=== PATIENT | male | born 1970 | race Caucasian/White ===

== ENCOUNTER → 2017-11-17 | Outpatient (CLI) | payer SELFPAY ==
--- NOTE | 2017-11-17 13:33 | Diagnostic Imaging Report ---
PROCEDURE: US carotid duplex, bilateral. TECHNIQUE: Multiple real-time grayscale images were obtained over the carotid arteries in various projections, bilaterally. Additional duplex Doppler and color Doppler images were also obtained. INDICATION: Carotid artery disease. There are no prior studies available for comparison. FINDINGS: There is mild hard and soft plaque formation in both carotid systems. The flow velocities are as follows: Mid CCA: Right 92 cm/s, left 84.4 cm/s. Proximal ICA: Right 148 cm/s, left 68 cm/s. Mid ICA: Right 82.5 cm/s, left 79.2 cm/s. Distal ICA: Right 97.4 cm/s, left 85 cm/s. IC/CC ratio: Right 1.6, left 0.8. Both vertebral arteries are identified and there is antegrade flow bilaterally. IMPRESSION: There is mild atherosclerotic disease involving both carotid systems. There is no evidence for a hemodynamically significant stenosis of either carotid system, however. Dictated by: Dictated on workstation # [id number]
== END ==
LOC: RAD 12:03
PROVIDERS: ATTEND Pediatrics
DX: I65.23 Occlusion and stenosis of bilateral carotid arteries (principal)
CPT/HCPCS: 93880

== ENCOUNTER → 2017-11-24 | Outpatient (CLI) | payer SELFPAY ==
[2017-11-24 16:27] VITALS: BP 149/90
--- NOTE | 2017-11-24 16:27 | Cardiology Stress Test Report ---
Stress Test Report Date of Procedure/Referring: Date of Procedure: Nov 24, 2017 PCP Zainab Saleem MD Admitting Physician Zainab Saleem MD Indications: Recurrent chest pain, hypertension, hyperlipidemia, active smoking Baseline Heart Rate: 79 Baseline Blood Pressure: Blood Pressure Systolic: 149 Blood Pressure Diastolic: 90 Baseline EKG: Baseline EKG: sinus rhythm Summary: The patient was brought to the stress level for a regular treadmill test without nuclear imaging. Informed consent was taken. Stress test was performed according to the [facility] protocol. Baseline EKG had sinus rhythm at 79 bpm and blood pressure of 1 49 x 90 mmHg. Patient exercised for 12 minutes and 30 seconds in grade 5. This is 12.9 metabolic equal and. Maximum heart rate was 173 bpm which is 101 percent of maximum predicted heart rate response. That pressure was 193/84 mmHg. There was no chest pain, arrhythmias or EKG changes noted during the stress test. Conclusion: 1. Excellent functional capacity. 2. Hypertensive response to exercise. 3. Exercise stress test is negative for ischemia. 4. Please note that exercise stress test alone has moderate sensitivity to rule out CAD. Nuclear stress test is recommended if clinically indicated. Boaz CORMIER MD Nov 24, 2017 16:27
== END ==
LOC: CARD 11:25
PROVIDERS: ATTEND Pediatrics
DX: N40.1 Benign prostatic hyperplasia with lower urinary tract symptoms (principal); R07.9 Chest pain, unspecified; E78.5 Hyperlipidemia, unspecified; I10 Essential (primary) hypertension; F17.210 Nicotine dependence, cigarettes, uncomplicated
CPT/HCPCS: 93017

== ENCOUNTER 2019-04-10 13:15 | Inpatient (IN) | payer SELFPAY, OTHER | END 2019-04-12 11:09 | disposition home or self-care (01) | LOC: 4TH 13:15 ==

== ENCOUNTER 2019-11-04 19:34 | Emergency (ER) | payer SELFPAY ==
[~2019-11-04] VITALS: Ht 175 cm; Wt 70.5 kg
[~2019-11-04 19:34] MED LIST: AMLO5TAB9 PO; ATOR20TA49 PO; FLUO40CA12 PO; GBPN600T PO; LISI-552 PO; LISI10TA2 PO; MELO15TA39 PO; OLAN15TA19 PO; RANI-515 PO; TAMS0.4C98 PO
[2019-11-04] MEDS ORDERED: LACTATED RINGERS 1,000 ML IV ONE (19:53)
[2019-11-04] MEDS ORDERED: FAMOTIDINE 20MG/2ML IV (PEPCID) IV STA (19:53)
[2019-11-04] MEDS ORDERED: ASPIRIN 81 MG CHEW (CHILDREN'S ASA) PO ONE (20:00)
[2019-11-04] MEDS ORDERED: ANTACID SUSP 30 ML UDC (MYLANTA) PO ONE (20:00)
[2019-11-04] MEDS ORDERED: ONDANSETRON 4 MG/2 ML (SDV) Z0FRAN IVP ONE (20:00)
[2019-11-04] MEDS ORDERED: LIDOCAINE 2% VISCOUS 15 ML UDC PO ONE (20:00)
[2019-11-04 20:01] LABS: BASOPHILS % (AUTO) 0 % (0-10); EOSINOPHILS # (AUTO) 0.1 10^3/uL (0.0-0.3); EOSINOPHILS % (AUTO) 1 % (0-10); HEMATOCRIT 44 % (40-54); HEMOGLOBIN 15.9 G/DL (13.3-17.7); LYMPHOCYTES # (AUTO) 2.5 X 10^3 (1.0-4.0); LYMPHOCYTES % (AUTO) 39 % (12-44); MEAN CORPUSCULAR HEMOGLOBIN 32 PG (25-34); MEAN CORPUSCULAR HGB CONC 36 G/DL (32-36); MEAN CORPUSCULAR VOLUME 88 FL (80-99); MEAN PLATELET VOLUME 9.8 FL (7.4-10.4); MONOCYTES # (AUTO) 0.6 X 10^3 (0.0-1.0); MONOCYTES % (AUTO) 10 % (0-12); NEUTROPHILS # (AUTO) 3.3 X 10^3 (1.8-7.8); NEUTROPHILS % (AUTO) 50 % (42-75); PLATELET COUNT 127 10^3/uL (130-400); RED CELL DISTRIBUTION WIDTH 14.5 % (10.0-14.5); WHITE BLOOD COUNT 6.5 10^3/uL (4.3-11.0)
--- NOTE | 2019-11-04 20:01 | ED Chest Pain ---
General Chief Complaint: Chest Pain Stated Complaint: CP,ABD PAIN, R SIDED PAIN Nursing Triage Note: Pt ambulates to RM 5 with c/o sternal CP and Rt sided rib pain x 2 days, worse with coughing. Pt has Hx of HTN and COPD, reports he did not take his BP meds this morning. Pt reports intermittent SOB as well. PT has not taken any meds [employer] but reports drinking a few beers. Nursing Sepsis Screen: No Definite Risk Source: patient, spouse Exam Limitations: no limitations History of Present Illness Date Seen by Provider: Nov 04, 2019 Time Seen by Provider: 19:37 Initial Comments Patient presents to ER by private conveyance from home with chief complaint for the past 2 days been having chest pain pointing to his epigastric region and his right upper quadrant abdomen. He says it's only radiated to his right upper quadrant abdomen/right ribs lower in the past day. He says this has occurred in the past whenever he tries to reduce or stop drinking. He had a drink of alcohol before coming in today. He has a history of alcoholism and has been on the [facility] detox program with [facility] through Dr. Saleem in the past. He has an appointment tomorrow trying get back into the program. He says he's been off alcohol for up to 6 months at a time. He denies a history of heart disease or lung disease. He does smoke a pack cigarettes per day. He denies any recreational drug use. The drinking bottle did not help his chest pain. He has no history of pancreatitis, stomach ulcers, peptic ulcer disease, gallbladder disease that he is aware of. He's had a ventral hernia repair but no other abdominal surgeries. He does take olanzapine and carbamazepine and some other medications for high blood pressure. He's been taking his medications routinely. He states that he does not take any acid reflux medicines. He has not tried any antacids today. He denies any recent trauma. He's had some subjective fevers. No history of diabetes but he does take atorvastatin. Allergies and Home Medications Allergies Uncoded Allergies: yellow jacket (Allergy, Severe, Anaphylaxis, 04/10/19) has epi pen guinea wasp (Adverse Reaction, Severe, Anaphylaxis, 04/10/19) uses epi pen Home Medications Amlodipine Besylate 5 Mg Tablet, 5 MG PO DAILY Prescribed by: CHANO SALMON on 04/12/19 1034 Atorvastatin Calcium 20 Mg Tablet, 20 MG PO HS, (Reported) Fluoxetine HCl 40 Mg Capsule, 40 MG PO DAILY, (Reported) Lisinopril 20 Mg Tablet, 20 MG PO DAILY Prescribed by: CHANO SALMON on 04/12/19 1034 Ranitidine HCl 150 Mg Tablet, 300 MG PO HS PRN for HEARTBURN, (Reported) Tamsulosin HCl 0.4 Mg Cap, 0.4 MG PO HS, (Reported) Patient Home Medication List Home Medication List Reviewed: Yes Review of Systems Review of Systems Constitutional: No chills, No diaphoresis EENTM: No Blurred Vision, No Double Vision Respiratory: Denies Cough, Denies Shortness of Air Cardiovascular: See HPI, Chest Pain; Denies Edema, Denies Irregular Heart Rate, Denies Lightheadedness Gastrointestinal: See HPI; Denies Abdomen Distended; Abdominal Pain; Denies Constipated, Denies Diarrhea Genitourinary: Denies Burning, Denies Discharge Musculoskeletal: No back pain, No joint pain Skin: No lumps, No pruritus, No rash Psychiatric/Neurological: Denies Headache, Denies Numbness All Other Systems Reviewed Negative Unless Noted: Yes Past Waptikp-Cpkxxm-Gptjyd Hx Patient Social History Alcohol Use: Regular Use Number of Drinks Today: AA Alcohol Beverage of Choice: Beer Recreational Drug Use: No Smoking Status: Never a Smoker 2nd Hand Smoke Exposure: No Recent Foreign Travel: No Contact w/Someone Who Travel: No Recent Infectious Disease Expo: No Recent Hopitalizations: No Physical Abuse: No Sexual Abuse: No Mistreated: No Fear: No Seasonal Allergies Seasonal Allergies: No Past Medical History Surgeries: Yes (hernia ) Orthopedic Respiratory: Yes COPD Cardiac: Yes Hypertension Neurological: No Genitourinary: No Gastrointestinal: No Musculoskeletal: No Endocrine: No HEENT: No Cancer: No Psychosocial: No Bipolar, Depression Integumentary: No Blood Disorders: No Family Medical History Diabetes mellitus 19 FATHER No Pertinent Family Hx Physical Exam Vital Signs Vital Signs - First Documented 11/04/19 19:40 Temp 35.9 Pulse 89 Resp 20 B/P (MAP) 137/89 (105) Pulse Ox 95 O2 Delivery Room Air Capillary Refill : Less Than 3 Seconds Height, Weight, BMI Height: 5'8.00" Weight: 150lbs. 4.0oz. 68.723884tn; 23.00 BMI Method: General Appearance: No Apparent Distress, WD/WN HEENT: PERRL/EOMI, Pharynx Normal, Moist Mucous Membranes Neck: Full Range of Motion, Normal Inspection, Non Tender, Supple Respiratory: Chest Non Tender, Lungs Clear, Normal Breath Sounds, No Accessory Muscle Use, No Respiratory Distress Cardiovascular: Regular Rate, Rhythm, No Edema, Normal Peripheral Pulses Gastrointestinal: Normal Bowel Sounds, Guarding (epigastric and right upper quadrant), Tenderness (modest epigastric tenderness to palpation and guarding and moderate to severe pain on palpation of the right upper quadrant abdomen. Negative for Solorzano sign. Negative for McBurney's point tenderness or rebound tenderness.) Extremity: Normal Capillary Refill, Normal Inspection Neurologic/Psychiatric: Alert, Oriented x3, No Motor/Sensory Deficits Skin: Normal Color, Warm/Dry Progress/Results/Core Measures Results/Orders Lab Results Laboratory Tests Test 11/04/19 19:46 Range/Units White Blood Count 6.5 4.3-11.0 10^3/uL Red Blood Count 4.99 4.35-5.85 10^6/uL Hemoglobin 15.9 13.3-17.7 G/DL Hematocrit 44 40-54 % Mean Corpuscular Volume 88 80-99 FL Mean Corpuscular Hemoglobin 32 25-34 PG Mean Corpuscular Hemoglobin Concent 36 32-36 G/DL Red Cell Distribution Width 14.5 10.0-14.5 % Platelet Count 127 L 130-400 10^3/uL Mean Platelet Volume 9.8 7.4-10.4 FL Neutrophils (%) (Auto) 50 42-75 % Lymphocytes (%) (Auto) 39 12-44 % Monocytes (%) (Auto) 10 0-12 % Eosinophils (%) (Auto) 1 0-10 % Basophils (%) (Auto) 0 0-10 % Neutrophils # (Auto) 3.3 1.8-7.8 X 10^3 Lymphocytes # (Auto) 2.5 1.0-4.0 X 10^3 Monocytes # (Auto) 0.6 0.0-1.0 X 10^3 Eosinophils # (Auto) 0.1 0.0-0.3 10^3/uL Basophils # (Auto) 0.0 0.0-0.1 10^3/uL Prothrombin Time 11.7 L 12.2-14.7 SEC INR Comment 0.8 0.8-1.4 Activated Partial Thromboplast Time 28 24-35 SEC Sodium Level 133 L 135-145 MMOL/L Potassium Level 3.7 3.6-5.0 MMOL/L Chloride Level 94 L 98-107 MMOL/L Carbon Dioxide Level 23 21-32 MMOL/L Anion Gap 16 H 5-14 MMOL/L Blood Urea Nitrogen 6 L 7-18 MG/DL Creatinine 0.78 0.60-1.30 MG/DL Estimat Glomerular Filtration Rate > 60 BUN/Creatinine Ratio 8 Glucose Level 109 H 70-105 MG/DL Calcium Level 8.8 8.5-10.1 MG/DL Corrected Calcium 8.4 L 8.5-10.1 MG/DL Magnesium Level 1.9 1.6-2.4 MG/DL Total Bilirubin 0.4 0.1-1.0 MG/DL Aspartate Amino Transf (AST/SGOT) 232 H 5-34 U/L Alanine Aminotransferase (ALT/SGPT) 337 H 0-55 U/L Alkaline Phosphatase 85 40-136 U/L Myoglobin 37.7 10.0-92.0 NG/ML Troponin I < 0.028 <0.028 NG/ML Total Protein 6.9 6.4-8.2 GM/DL Albumin 4.5 3.2-4.5 GM/DL Lipase 31 8-78 U/L My Orders Orders - MICHAEL GOMES Ed Iv/Invasive Line Start (11/04/19 19:53) Lactated Ringers (Lr 1000 Ml Iv Solution (11/04/19 19:53) Ondansetron Injection (Zofran Injectio (11/04/19 20:00) Lidocaine 2% Viscous 15 Ml (Xylocaine Vi (11/04/19 20:00) Antacid Suspension (Mylanta Suspension (11/04/19 20:00) Famotidine Injection (Pepcid Injection) (11/04/19 19:53) Ct Abdomen/Pelvis W (11/04/19 19:53) Cbc With Automated Diff (11/04/19 19:53) Magnesium (11/04/19 19:53) Chest 1 View, Ap/Pa Only (11/04/19 19:53) Ekg Tracing (11/04/19 19:53) Comprehensive Metabolic Panel (11/04/19 19:53) Myoglobin Serum (11/04/19 19:53) Protime With Inr (11/04/19 19:53) Partial Thromboplastin Time (11/04/19 19:53) O2 (11/04/19 19:53) Monitor-Rhythm Ecg Trace Only (11/04/19 19:53) Lipid Panel (11/05/19 06:00) Ed Iv/Invasive Line Start (11/04/19 19:53) Lipase (11/04/19 19:53) Aspirin Chewable Tablet (Baby Aspirin Ch (11/04/19 20:00) Troponin I (11/04/19 19:46) Thiamine Injection (Vitamin B-1 Injectio (11/04/19 20:15) Folic Acid Injection (Folic Acid Injecti (11/04/19 20:15) Ua Culture If Indicated (11/04/19 20:04) Folic Acid Tablet (Folic Acid Tablet) (11/04/19 20:15) Folic Acid Tablet (Folic Acid Tablet) (11/04/19 20:05) Iohexol Injection (Omnipaque 350 Mg/Ml 1 (11/04/19 20:45) Received Contrast (Hold Metformin- Contr (11/04/19 20:45) Sodium Chloride Flush (Catheter Flush Sy (11/04/19 20:45) Ns (Ivpb) (Sodium Chloride 0.9% Ivpb Bag (11/04/19 20:45) Medications Given in ED Current Medications Medications Dose Ordered Sig/Misa Route Start Time Stop Time Status Last Admin Dose Admin Al Hydrox/Mg Hydrox/Simethicone 30 ml ONCE ONCE PO 11/04/19 20:00 11/04/19 20:01 DC 11/04/19 20:03 30 ML Aspirin 324 mg ONCE ONCE PO 11/04/19 20:00 11/04/19 20:01 DC 11/04/19 20:03 324 MG Folic Acid 1 mg ONCE ONCE PO 11/04/19 20:15 11/04/19 20:16 DC 11/04/19 20:11 1 MG Iohexol 100 ml ONCE ONCE IV 11/04/19 20:45 11/04/19 20:46 DC 11/04/19 20:46 88 ML Lactated Ringer's 1,000 ml @ 0 mls/hr Q0M ONCE IV 11/04/19 19:53 11/04/19 19:56 DC 11/04/19 20:02 0 MLS/HR Lidocaine HCl 15 ml ONCE ONCE PO 11/04/19 20:00 11/04/19 20:01 DC 11/04/19 20:03 15 ML Ondansetron HCl 4 mg ONCE ONCE IVP 11/04/19 20:00 11/04/19 20:01 DC 11/04/19 20:02 4 MG Sodium Chloride 10 ml NEEDED PRN IV 11/04/19 20:45 11/04/19 20:46 10 ML Sodium Chloride 100 ml ONCE ONCE IV 11/04/19 20:45 11/04/19 20:46 DC 11/04/19 20:46 80 ML Thiamine HCl 100 mg ONCE ONCE IV 11/04/19 20:15 11/04/19 20:16 DC 11/04/19 20:11 100 MG Vital Signs/I&O 11/04/19 11/04/19 19:40 19:50 Temp 35.9 Pulse 89 Resp 20 B/P (MAP) 137/89 (105) Pulse Ox 95 O2 Delivery Room Air Room Air Blood Pressure Mean: 105 Progress Progress Note #1: Time: 20:02 Progress Note UA and labs looking for lipase. We'll do a chest pain workup however his pain he indicates is in his epigastric region he has a tender belly. We plan to work him up for abdominal pain. We'll give him 324 mg of aspirin to chew up and swallow. Also plan to give him a GI cocktail. Chief differential diagnoses includes PUD, gastritis, pancreatitis, biliary colic. Plan to obtain a CT of the abdomen pelvis. Liter fluids. Thiamine and folate. Pepcid IV. Progress Note #2: Time: 21:06 Progress Note The GI cocktail and Pepcid took his pain away. He's having no nausea or discomfort at this time. EKG unremarkable. Thiamine and folate in addition to his fluids. Initial ECG Impression Date: Nov 04, 2019 Initial ECG Impression Time: 20:10 Initial ECG Rate: 102 Initial ECG Rhythm: S.Tach Initial ECG Intervals: Normal Initial ECG Impression: Normal Comment Normal sinus rhythm without ST elevation or depression. Diagnostic Imaging Diagonstic Imaging: Xray Plain Films/CT/US/NM/MRI: chest (1v) Comments NAME: CHARLIE JOHNSON MED REC#: [id number] PT STATUS: REG ER : 1970 PHYSICIAN: MICHAEL GOMES MD ADMIT DATE: 11/04/19/ER Draft Date of Exam:11/04/19 CHEST 1 VIEW, AP/PA ONLY INDICATION: Chest pain, right upper quadrant pain.. TECHNIQUE: Single view chest 8:04 PM. CORRELATION STUDY: None FINDINGS: The heart size, mediastinal configuration and pulmonary vascularity are within normal limits. The lungs are clear with no consolidating infiltrate. There is no significant effusion or pneumothorax. IMPRESSION: 1. Negative for acute abnormality of the chest. Dictated on workstation # [id number] Dict: 11/04/192012 Trans: 11/04/192012 DO [id number] Interpreted by: BERTHA SUMMERS DO Electronically signed by: Reviewed: Reviewed by [place] Diagonstic Imaging: CT (with IV contrast) Plain Films/CT/US/NM/MRI: abdomen, pelvis Comments NAME: CHARLIE JOHNSON [facility] REC#: [id number] PT STATUS: REG ER : 1970 PHYSICIAN: MICHAEL GOMES MD ADMIT DATE: 11/04/19/ER Draft Date of Exam:11/04/19 CT ABDOMEN/PELVIS W PROCEDURE: CT abdomen and pelvis with contrast. TECHNIQUE: Multiple contiguous axial images were obtained through the abdomen and pelvis after administration of intravenous contrast. Auto Exposure Controls were utilized during the CT exam to meet ALARA standards for radiation dose reduction. INDICATION: Anterior mid diaphragm pain and right upper quadrant pain. CORRELATION STUDY: None. FINDINGS: Lung bases are clear. Diaphragmatic surfaces appear to be smooth and intact. There is diffuse hepatic steatosis without focal lesion. Gallbladder is mildly distended. No significant bile ductal dilatation. The pancreas, spleen and adrenal glands without acute abnormality. Abdominal aorta with mild wall desiccation, nonaneurysmal. Kidneys with normal enhancement. There is mild prominent of bilateral collecting system including the ureters. This is likely owing to a distended urinary bladder. Prostate gland is mildly prominent with a calcification centrally. No definitive ureteric obstruction. Stomach is collapsed resulting in some gastric wall thickening. Inflammation, including gastritis and/or peptic ulcer disease, would be difficult to exclude. Small bowel without obstruction. Mild severity fecal retention through the colon. Normal appendix present. No abdominal ascites or free air. Mild multilevel degenerative changes, particularly at L4-L5 and L5-S1 with disc space narrowing, endplate osteophytes and sclerosis. There is resultant significant spur like formation with resultant foraminal narrowing greatest on the right at these levels. IMPRESSION: 1. Slight distended gallbladder, otherwise unremarkable. 2. There is some gastric wall thickening which could be reflective of its collapsed state. The possibility of gastritis or peptic ulcer disease could account for this. 3. Mild dilatation of the renal collecting systems owing to somewhat distended urinary bladder. 4. Hepatic steatosis. Dictated on workstation # [id number] Dict: 11/04/192099 Trans: 11/04/192109 [facility] [id number] Interpreted by: BERTHA SUMMERS DO Electronically signed by: Reviewed: Reviewed by Me Departure Impression Primary Impression: Gastritis Qualified Codes: K29.20 - Alcoholic gastritis without bleeding Disposition: HOME, SELF-CARE Condition: Improved Departure-Patient Inst. Decision time for Depature: 21:15 Referrals: PATIENCE ABRAHAM MD, JULIE A MD (PCP/Family) Primary Care Physician Patient Instructions: Gastritis (DC) Add. Discharge Instructions: You have inflammation of your stomach probably exacerbated by the alcohol. As you stop drinking the alcohol no longer numbs the pain in the stomach and you'll feel it. It is shepherd that you reduce your alcohol intake but you need to do this with help from your doctor to treat the gastritis. We are going to put you on pantoprazole 20 mg twice a day instead of the omeprazole. Carafate 1 tablet half an hour prior to meals and at bedtime for a total of 4 times a day for the next 2 weeks. Follow-up with the general surgeon Dr. Abrahma by calling for an appointment tomorrow sometime in the next 1-2 weeks to discuss getting endoscopy of your stomach done. All discharge instructions reviewed with patient and/or family. Voiced unde rstanding. Scripts Pantoprazole Sodium (Pantoprazole Sodium) 20 Mg Tablet. 20 MG PO BID for 30 Days, #60 TAB 0 Refills Prov: MICHAEL GOMES 11/04/19 Sucralfate (Carafate) 1 Gm Tablet 1 GM PO QIDACHS for 14 Days, #56 TAB 0 Refills Prov: MICHAEL GOMES 11/04/19 Work/School Note: Family Work Note Patient Received Medical Care In the Emergency Department On: Nov 04, 2019 Patient Will Be Able to Return to Work/School On: Nov 05, 2019 Copy Copies To 1: PATIENCE ABRAHAM MD, TITUS J Nov 04, 2019 20:01
[2019-11-04] MEDS ORDERED: FOLIC ACID 1 MG TAB ONE (20:05)
[2019-11-04 20:14] LABS: ALANINE AMINOTRANSFERASE 337 U/L (0-55); ALBUMIN 4.5 GM/DL (3.2-4.5); ALKALINE PHOSPHATASE 85 U/L (40-136); BILIRUBIN,TOTAL 0.4 MG/DL (0.1-1.0); BUN/CREATININE RATIO 8; CALCIUM 8.8 MG/DL (8.5-10.1); CARBON DIOXIDE 23 MMOL/L (21-32); CHLORIDE 94 MMOL/L (98-107); CREATININE SERUM 0.78 MG/DL (0.60-1.30); GFR ESTIMATED > 60; GLUCOSE 109 MG/DL (70-105); LIPASE 31 U/L (8-78); MAGNESIUM 1.9 MG/DL (1.6-2.4); POTASSIUM 3.7 MMOL/L (3.6-5.0); SODIUM 133 MMOL/L (135-145); TOTAL PROTEIN 6.9 GM/DL (6.4-8.2)
--- NOTE | 2019-11-04 20:14 | Diagnostic Imaging Report ---
INDICATION: Chest pain, right upper quadrant pain.. TECHNIQUE: Single view chest 8:04 PM. CORRELATION STUDY: None FINDINGS: The heart size, mediastinal configuration and pulmonary vascularity are within normal limits. The lungs are clear with no consolidating infiltrate. There is no significant effusion or pneumothorax. IMPRESSION: 1. Negative for acute abnormality of the chest. Dictated by: Dictated on workstation # [id number]
[2019-11-04] MEDS ORDERED: FOLIC ACID 5MG/ML 10 ML IV ONE (20:15)
[2019-11-04] MEDS ORDERED: THIAMINE 100 MG/ML 2 ML (VITAMIN B-1) VIAL IV ONE (20:15)
[2019-11-04] MEDS ORDERED: FOLIC ACID 1 MG TAB PO ONE (20:15)
[2019-11-04 20:17] LABS: INR 0.8 (0.8-1.4); PROTHROMBIN TIME PATIENT 11.7 SEC (12.2-14.7)
[2019-11-04] MEDS ORDERED: NS 100 ML (IVPB) BAG IV ONE (20:45)
[2019-11-04] MEDS ORDERED: IOHEXOL 350 MG/ML 100 ML (OMNIPAQUE 350) VIAL IV ONE (20:45)
[2019-11-04] MEDS ORDERED: CATHETER FLUSH 10 ML SYR IV PRN (20:45)
[2019-11-04] MEDS ORDERED: HOLD METFORMIN - RECEIVED CONTRAST 20 ML VIAL IV SCH (20:45)
--- NOTE | 2019-11-04 21:11 | Diagnostic Imaging Report ---
PROCEDURE: CT abdomen and pelvis with contrast. TECHNIQUE: Multiple contiguous axial images were obtained through the abdomen and pelvis after administration of intravenous contrast. Auto Exposure Controls were utilized during the CT exam to meet ALARA standards for radiation dose reduction. INDICATION: Anterior mid diaphragm pain and right upper quadrant pain. CORRELATION STUDY: None. FINDINGS: Lung bases are clear. Diaphragmatic surfaces appear to be smooth and intact. There is diffuse hepatic steatosis without focal lesion. Gallbladder is mildly distended. No significant bile ductal dilatation. The pancreas, spleen and adrenal glands without acute abnormality. Abdominal aorta with mild wall desiccation, nonaneurysmal. Kidneys with normal enhancement. There is mild prominent of bilateral collecting system including the ureters. This is likely owing to a distended urinary bladder. Prostate gland is mildly prominent with a calcification centrally. No definitive ureteric obstruction. Stomach is collapsed resulting in some gastric wall thickening. Inflammation, including gastritis and/or peptic ulcer disease, would be difficult to exclude. Small bowel without obstruction. Mild severity fecal retention through the colon. Normal appendix present. No abdominal ascites or free air. Mild multilevel degenerative changes, particularly at L4-L5 and L5-S1 with disc space narrowing, endplate osteophytes and sclerosis. There is resultant significant spur like formation with resultant foraminal narrowing greatest on the right at these levels. IMPRESSION: 1. Slight distended gallbladder, otherwise unremarkable. 2. There is some gastric wall thickening which could be reflective of its collapsed state. The possibility of gastritis or peptic ulcer disease could account for this. 3. Mild dilatation of the renal collecting systems owing to somewhat distended urinary bladder. 4. Hepatic steatosis. Dictated by: Dictated on workstation # [id number]
[2019-11-04] MEDS ORDERED: PANT20TA3 PO (21:26)
[2019-11-04] MEDS ORDERED: SUCR1TAB36 PO (21:26)
[2019-11-04 21:37] VITALS: BP 129/79
== END 2019-11-04 21:39 | disposition home or self-care (01) ==
LOC: EDUNIT# 19:34 → ER 19:35
DX: K29.70 Gastritis, unspecified, without bleeding (principal); I10 Essential (primary) hypertension; J44.9 Chronic obstructive pulmonary disease, unspecified; F31.9 Bipolar disorder, unspecified; F17.210 Nicotine dependence, cigarettes, uncomplicated
CPT/HCPCS: 36415; 71045; 74177; 80053; 83690; 83735; 83874; 84484; 85025; 85610; 85730; 93005; 93041; 96361; 96374; 96375

== ENCOUNTER 2020-03-06 17:59 | Inpatient (IN) | payer SELFPAY ==
[2020-03-06] VITALS (9 sets, daily range): BP systolic 94–133; BP diastolic 64–93
[~2020-03-06] VITALS: Ht 175 cm; Wt 67.3 kg
[~2020-03-06 17:59] MED LIST changes: +PANT20TA3 PO; -RANI-515 PO; +RANI-609 PO; +SUCR1TAB36 PO; -TAMS0.4C98 PO; +TMSL.4C PO
[2020-03-06] MEDS ORDERED: LACTATED RINGERS 1,000 ML IV ONE (18:07)
[2020-03-06] MEDS ORDERED: LEVETIRACETAM INJECTION 1,000 MG in NS (IVPB) 100 ML IV ONE (18:15)
[2020-03-06 18:22] LABS: BASOPHILS % (AUTO) 0 % (0-10); EOSINOPHILS # (AUTO) 0.1 10^3/uL (0.0-0.3); EOSINOPHILS % (AUTO) 1 % (0-10); HEMATOCRIT 39 % (40-54); HEMOGLOBIN 13.9 G/DL (13.3-17.7); LYMPHOCYTES # (AUTO) 1.3 X 10^3 (1.0-4.0); LYMPHOCYTES % (AUTO) 19 % (12-44); MEAN CORPUSCULAR HEMOGLOBIN 32 PG (25-34); MEAN CORPUSCULAR HGB CONC 36 G/DL (32-36); MEAN CORPUSCULAR VOLUME 90 FL (80-99); MEAN PLATELET VOLUME 11.2 FL (7.4-10.4); MONOCYTES # (AUTO) 0.4 X 10^3 (0.0-1.0); MONOCYTES % (AUTO) 6 % (0-12); NEUTROPHILS # (AUTO) 4.9 X 10^3 (1.8-7.8); NEUTROPHILS % (AUTO) 74 % (42-75); PLATELET COUNT 79 10^3/uL (130-400); RED CELL DISTRIBUTION WIDTH 12.1 % (10.0-14.5); WHITE BLOOD COUNT 6.7 10^3/uL (4.3-11.0)
--- NOTE | 2020-03-06 18:22 | ED General ---
General Chief Complaint: Substance Abuse Stated Complaint: SEIZURE Source of Information: Patient (DOES HAVE SOME MEMORY IMPAIRMENT ), EMS History of Present Illness Date Seen by Provider: March 06, 2020 Time Seen by Provider: 17:59 Initial Comments PT ARRIVES VIA EMS FROM HOME PT HAD A WITNESSED SEIZURE ( WITNESSED BY ) THAT LASTED 1 1/2-2 MINUTES. NO INJURY--PT WAS LAYING ON THE BED AT THE TIME NO INCONTINENCE DESCRIBED POST ICTAL SYMPTOMS TO EMS AND PT APPEARED TO BE A LITTLE POST ICTAL WHEN EMS ARRIVED AT THE SCENE--THAT HAS IMPROVED ON ARRIVAL TO ER. C/O FEELING DIZZY AND WEAK NO NAUSEA/VOMITING, HAD DIARRHEA X 1 LAST PM. NONE TODAY. NO ABDOMINAL PAIN . NO HEADACHE NO FEVER/SWEATS/CHILLS NO RECENT ILLNESS NO CHEST PAIN OR SHORTNESS OF BREATH OR PALPITATIONS STATES HE "HASN'T FELT GOOD ALL DAY" --FEELS WEAK ALL OVER, AND NO APPETITE--HAS NOT EATEN TODAY BUT HAS BEEN DRINKING WATER. NO PAIN ANYWHERE PT WITH FREQUENT FALLS, AND STATES HE DID FALL ON THE GRASS THIS MORNING--ON HIS KNEES DENIES HITTING HIS HEAD THEN OR ANY ANY TIME RECENTLY, OR ANY OTHER RECENT TRAUMA IN THE LAST WEEK OR TWO PT DRINKS AT LEAST A 12 PACK OF 18 OZ BEERS EVERY DAY, BUT HAS NOT HAD ANY ALCOHOL FOR THE LAST 2 DAYS--DID DRINK 2 BEERS EARLY THIS MORNING BUT NO ALCOHOL SINCE THEN PT DENIES ANY PRIOR HISTORY OF SEIZURES, BUT STATES THAT HE DOES START GETTING THE SHAKES AFTER NO ALCOHOL FOR 5-6 HOURS. PT WAS IN ALCOHOL REHAB AT [facility] ABOUT 2 YEARS AGO PT ADMITTED HERE 04/10/2019 FOR ALCOHOL WITHDRAWL HALLUCINATIONS AND WAS THEN ADMITTED TO [facility], BUT PT STATES HE ONLY STAYED FOR "A DAY OR SO" AND LEFT DUE TO "FAMILY PROBLEMS" AND DID NOT SEEK ANY OUTPATIENT TREATMENT AND IMMEDIATELY RESUMED DRINKING STATES HE HAS MADE ARRANGEMENTS TO GO INTO REHAB IN [place] 04/03/2020 PCP: DR. Tracy EDWARDS AT [facility]--HAS NOT SEEN FOR "AWHILE" ALSO GOES TO MENTAL HEALTH AT [facility]--HAS NOT BEEN THERE FOR "AWHILE" Allergies and Home Medications Allergies Uncoded Allergies: yellow jacket (Allergy, Severe, Anaphylaxis, 04/10/19) has epi pen guinea wasp (Adverse Reaction, Severe, Anaphylaxis, 04/10/19) uses epi pen Home Medications Amlodipine Besylate 5 Mg Tablet, 5 MG PO DAILY Prescribed by: CHANO SALMON on 04/12/19 1034 Atorvastatin Calcium 20 Mg Tablet, 20 MG PO HS, (Reported) Fluoxetine HCl 40 Mg Capsule, 40 MG PO DAILY, (Reported) Lisinopril 20 Mg Tablet, 20 MG PO DAILY Prescribed by: CHANO SALMON on 04/12/19 103 Pantoprazole Sodium 20 Mg Tablet.dr, 20 MG PO BID Prescribed by: MICHAEL GOMES on 11/04/192125 Ranitidine HCl 150 Mg Tablet, 300 MG PO HS PRN for HEARTBURN, (Reported) Sucralfate 1 Gm Tablet, 1 GM PO QIDACHS Prescribed by: MICHAEL GOMES on 11/04/192125 Tamsulosin HCl 0.4 Mg Cap, 0.4 MG PO HS, (Reported) Patient Home Medication List Home Medication List Reviewed: Yes Review of Systems Review of Systems Constitutional: see HPI; No chills, No diaphoresis; dizziness; No fever; malaise, weakness EENTM: no symptoms reported; No blurred vision, No double vision Respiratory: cough; No short of breath, No wheezing Cardiovascular: no symptoms reported; No chest pain, No edema, No palpitations Gastrointestinal: see HPI; No constipation; diarrhea, loss of appetite; No nausea, No vomiting Genitourinary: no symptoms reported; No incontinence Musculoskeletal: no symptoms reported; No back pain, No muscle pain, No neck pain Skin: no symptoms reported; No rash Psychiatric/Neurological: See HPI; Denies Headache, Denies Numbness, Denies Paresthesia; Seizure; Denies Tingling; Tremors; Denies Weakness Hematologic/Lymphatic: No Symptoms Reported Immunological/Allergic: no symptoms reported Past Nykbvkn-Cyugha-Izpqzb Hx Past Med/Social Hx: Reviewed and Corrections made Patient Social History Alcohol Use: Regular Use (12 PACK OF 18 OZ BEERS/DAY) Alcohol Beverage of Choice: Beer Recreational Drug Use: No Smoking Status: Current Everyday Smoker (1 PPD) Type Used: Cigarettes (1 PPD) 2nd Hand Smoke Exposure: No Recent Hopitalizations: No Seasonal Allergies Seasonal Allergies: No Past Medical History Surgeries: Yes (LEFT INGUINAL HERNIA REPAIR) Abdominal Respiratory: Yes COPD Cardiac: Yes High Cholesterol, Hypertension Neurological: Yes (MEMORY IMPAIRMENT;ETOH WITHDRAWL SEIZURE 03/06/20;DT'S/HALLUCINATIONS ) Seizure Disorder Genitourinary: Yes Prostate Problems Gastrointestinal: Yes (LEFT INGUINAL HERNIA REPAIR;ELEVATED LFT'S 03/06/20) Abdominal Hernia, Gastroesophageal Reflux Musculoskeletal: No Endocrine: No HEENT: No Cancer: No Psychosocial: Yes (ALCOHOLISM;DT'S WITH HALLUCINATIONS 03/2019;WITHDRAWL SEIZURE 03/06/2020) Anxiety, Bipolar, Depression Integumentary: No Blood Disorders: No Family Medical History Diabetes mellitus 19 FATHER No Pertinent Family Hx Physical Exam Vital Signs Vital Signs - First Documented 03/06/20 18:04 Temp 36.2 Pulse 80 Resp 16 B/P (MAP) 131/85 (100) Pulse Ox 96 O2 Delivery Room Air Capillary Refill : Less Than 3 Seconds Height, Weight, BMI Height: 5'8.00" Weight: 150lbs. 4.0oz. 68.019479qg; 22.00 BMI Method: General Appearance: No Apparent Distress, WD/WN, Other (NO INCONTINENCE) HEENT: PERRL/EOMI, TMs Normal, Normal ENT Inspection, Pharynx Normal, Other (NO EXTERNAL EVIDENCE OF TRAUMA-NO EVIDENCE OF BITING TONGUE, ETC. ) Neck: Full Range of Motion, Normal Inspection, Non Tender, Supple Respiratory: Normal Breath Sounds, No Accessory Muscle Use, No Respiratory Distress Cardiovascular: Regular Rate, Rhythm, No Edema, No JVD, No Murmur, Normal Peripheral Pulses Gastrointestinal: Normal Bowel Sounds, No Organomegaly, No Pulsatile Mass, Non Tender, Soft Back: Normal Inspection, No CVA Tenderness, No Vertebral Tenderness Extremity: Normal Capillary Refill, Normal Inspection, Normal Range of Motion, Non Tender, No Calf Tenderness, No Pedal Edema Neurologic/Psychiatric: Alert, Oriented x3 (BUT WITH SOME LIMITED MEMORY-- STATES IS NORMAL FOR HIM), No Motor/Sensory Deficits, Normal Mood/Affect, atm mechanic II-XII Norm as Tested, Other (VERY TREMULOUS. DOES NOT APPEAR POST ICTAL AT THIS TIME. ) Skin: Normal Color, Warm/Dry; No Ecchymosis, No Rash Progress/Results/Core Measures Suspected Sepsis SIRS Temperature: Pulse: 80 Respiratory Rate: 16 Laboratory Tests 03/06/20 18:05: White Blood Count 6.7 Blood Pressure 131 /85 Mean: 100 Laboratory Tests 03/06/20 18:05: Creatinine 0.77, INR Comment 0.8, Platelet Count 79L, Total Bilirubin 1.6H Results/Orders Lab Results Laboratory Tests Test 03/06/20 18:05 03/06/20 18:40 03/06/20 19:00 Range/Units White Blood Count 6.7 4.3-11.0 10^3/uL Red Blood Count 4.33 L 4.35-5.85 10^6/uL Hemoglobin 13.9 13.3-17.7 G/DL Hematocrit 39 L 40-54 % Mean Corpuscular Volume 90 80-99 FL Mean Corpuscular Hemoglobin 32 25-34 PG Mean Corpuscular Hemoglobin Concent 36 32-36 G/DL Red Cell Distribution Width 12.1 10.0-14.5 % Platelet Count 79 L 130-400 10^3/uL Mean Platelet Volume 11.2 H 7.4-10.4 FL Neutrophils (%) (Auto) 74 42-75 % Lymphocytes (%) (Auto) 19 12-44 % Monocytes (%) (Auto) 6 0-12 % Eosinophils (%) (Auto) 1 0-10 % Basophils (%) (Auto) 0 0-10 % Neutrophils # (Auto) 4.9 1.8-7.8 X 10^3 Lymphocytes # (Auto) 1.3 1.0-4.0 X 10^3 Monocytes # (Auto) 0.4 0.0-1.0 X 10^3 Eosinophils # (Auto) 0.1 0.0-0.3 10^3/uL Basophils # (Auto) 0.0 0.0-0.1 10^3/uL Prothrombin Time 11.8 L 12.2-14.7 SEC INR Comment 0.8 0.8-1.4 Activated Partial Thromboplast Time 27 24-35 SEC Sodium Level 126 L 135-145 MMOL/L Potassium Level 3.0 L 3.6-5.0 MMOL/L Chloride Level 85 L 98-107 MMOL/L Carbon Dioxide Level 23 21-32 MMOL/L Anion Gap 18 H 5-14 MMOL/L Blood Urea Nitrogen 11 7-18 MG/DL Creatinine 0.77 0.60-1.30 MG/DL Estimat Glomerular Filtration Rate > 60 BUN/Creatinine Ratio 14 Glucose Level 129 H 70-105 MG/DL Calcium Level 9.3 8.5-10.1 MG/DL Corrected Calcium 9.3 8.5-10.1 MG/DL Magnesium Level 1.9 1.6-2.4 MG/DL Total Bilirubin 1.6 H 0.1-1.0 MG/DL Aspartate Amino Transf (AST/SGOT) 139 H 5-34 U/L Alanine Aminotransferase (ALT/SGPT) 256 H 0-55 U/L Alkaline Phosphatase 149 H 40-136 U/L Total Creatine Kinase 433 H 30-200 U/L Creatine Kinase MB 10.0 *H <6.6 NG/ML Myoglobin 318.6 H 10.0-92.0 NG/ML Total Protein 6.8 6.4-8.2 GM/DL Albumin 4.0 3.2-4.5 GM/DL Amylase Level 50 25-125 U/L Lipase 62 8-78 U/L Free Thyroxine 0.95 0.70-1.48 NG/DL TSH Curry Testing 6.01 H 0.35-4.94 UIU/ML Acetaminophen Level < 10 L 10-30 UG/ML Serum Alcohol < 10 <10 MG/DL Urine Color YELLOW Urine Clarity CLEAR Urine pH 6.5 5-9 Urine Specific [place] 1.025 H 1.016-1.022 Urine Protein 1+ H NEGATIVE Urine Glucose (UA) TRACE H NEGATIVE Urine Ketones 2+ H NEGATIVE Urine Nitrite NEGATIVE NEGATIVE Urine Bilirubin 2+ H NEGATIVE Urine Urobilinogen >=8.0 < = 1.0 MG/DL Urine Leukocyte Esterase NEGATIVE NEGATIVE Urine RBC (Auto) NEGATIVE NEGATIVE Urine RBC 2-5 H /HPF Urine WBC 0-2 /HPF Urine Crystals NONE /LPF Urine Bacteria TRACE /HPF Urine Casts NONE /LPF Urine Mucus MODERATE H /LPF Urine Culture Indicated NO Urine Opiates Screen NEGATIVE NEGATIVE Urine Oxycodone Screen NEGATIVE NEGATIVE Urine Methadone Screen NEGATIVE NEGATIVE Urine Propoxyphene Screen NEGATIVE NEGATIVE Urine Barbiturates Screen NEGATIVE NEGATIVE Ur Tricyclic Antidepressants Screen NEGATIVE NEGATIVE Urine Phencyclidine Screen NEGATIVE NEGATIVE Urine Amphetamines Screen NEGATIVE NEGATIVE Urine Methamphetamines Screen NEGATIVE NEGATIVE Urine Benzodiazepines Screen NEGATIVE NEGATIVE Urine Cocaine Screen NEGATIVE NEGATIVE Urine Cannabinoids Screen NEGATIVE NEGATIVE Ammonia 31 11-32 UMOL/L My Orders Orders - NYDIA LEE DO Ed Iv/Invasive Line Start (03/06/20 18:07) Ekg Tracing (03/06/20 18:07) Monitor-Rhythm Ecg Trace Only (03/06/20 18:07) Acetaminophen (03/06/20 18:07) Alcohol (03/06/20 18:07) Amylase (03/06/20 18:07) Cbc With Automated Diff (03/06/20 18:07) Comprehensive Metabolic Panel (03/06/20 18:07) Creatine Kinase (03/06/20 18:07) Creatine Kinase Mb (03/06/20 18:07) Drug Screen Stat (Urine) (03/06/20 18:07) Lipase (03/06/20 18:07) Magnesium (03/06/20 18:07) Protime With Inr (03/06/20 18:07) Partial Thromboplastin Time (03/06/20 18:07) Thyroid Analyzer (03/06/20 18:07) Ua Culture If Indicated (03/06/20 18:07) Myoglobin Serum (03/06/20 18:07) Chest 1 View, Ap/Pa Only (03/06/20 18:07) Ed Iv/Invasive Line Start (03/06/20 18:07) Lactated Ringers (Lr 1000 Ml Iv Solution (03/06/20 18:07) Thiamine Injection (Vitamin B-1 Injectio (03/07/20 09:00) Levetiracetam Injection (Keppra Injectio (03/06/20 18:15) Lorazepam Injection (Ativan Injection) (03/06/20 18:30) Ammonia (03/06/20 18:52) Hepatitis Panel Acute (03/06/20 18:52) Ekg Tracing (03/06/20 18:55) Free T4 (Free Thyroxine) (03/06/20 18:05) Medications Given in ED Current Medications Medications Dose Ordered Sig/Misa Route Start Time Stop Time Status Last Admin Dose Admin Lactated Ringer's 1,000 ml @ 0 mls/hr Q0M ONCE IV 03/06/20 18:07 03/06/20 18:15 DC 03/06/20 18:36 1,000 MLS/HR Levetiracetam 1000 mg/Sodium Chloride 110 ml @ 440 mls/hr ONCE ONCE IV 03/06/20 18:15 03/06/20 18:29 DC 03/06/20 18:37 440 MLS/HR Lorazepam 1 mg ONCE ONCE IVP 03/06/20 18:30 03/06/20 18:31 DC 03/06/20 18:36 1 MG Vital Signs/I&O 03/06/20 18:04 Temp 36.2 Pulse 80 Resp 16 B/P (MAP) 131/85 (100) Pulse Ox 96 O2 Delivery Room Air Capillary Refill : Less Than 3 Seconds Progress Note : Progress Note GIVEN KEPPRA AND ATIVAN ON ARRIVAL GIVEN IV FLUIDS AND BANANA BAG. TREMORS IMPROVED WITH ATIVAN NO SEIZURE ACTIVITY DURING ER STAY UNEVENTFUL ER STAY PT HAD NO COMPLAINTS OTHER THAT FEELING WEAK ALL OVER ECG Initial ECG Impression Date: March 06, 2020 Initial ECG Impression Time: 18:12 Initial ECG Rate: 79 Initial ECG Rhythm: Normal Sinus (WITH MUCH ARTIFACT DUE TO TREMORS) EKG : EKG Time: 19:11 Rate: 83 Rhythm: Normal Sinus (MUCH LESS ARTIFACT. ) Diagnostic Imaging Comments CXR--LARGE LUNG VOLUMES, NO ACUTE PROCESS, PER RADIOLOGIST REPORT AT 1917 Reviewed: Reviewed by Me Departure Communication (Admissions) Family Conversation 5--SPOKE WITH PT'S AND UPDATE GIVEN. SHE REPORTS THAT PT DOES NOT HAVE A GOOD MEMORY BECAUSE OF ALL THE ALCOHOL. 1842--SPOKE WITH DR. FAJARDO, HOSPITALIST SIDE TRIMMER FOR [facility]. ACCEPTS PT FOR ADMIT 1844--SPOKE WITH E-ICU PHYSICIAN FOR CONSULT. Impression Primary Impression: Alcohol withdrawal Additional Impressions: NEW ONSET ALCOHOL WITHDRAWL SEIZURE Elevated liver enzymes Electrolyte imbalance Disposition: ADMITTED INPATIENT Condition: Improved Admissions Decision to Admit Reason: Admit from ER (General) Decision to Admit/Date: March 06, 2020 Time/Decision to Admit Time: 18:45 Departure-Patient Inst. Referrals: LISA EDWARDS MD (PCP/Family) Primary Care Physician Patient Instructions: ALCOHOL AND SUBSTANCE ABUSE NYDIA LEE DO March 06, 2020 18:22
[2020-03-06 18:27] LABS: CHLORIDE 85 MMOL/L (98-107); SODIUM 126 MMOL/L (135-145)
[2020-03-06 18:29] LABS: AMYLASE 50 U/L (25-125); CALCIUM 9.3 MG/DL (8.5-10.1); INR 0.8 (0.8-1.4); PROTHROMBIN TIME PATIENT 11.8 SEC (12.2-14.7)
[2020-03-06 18:30] LABS: GLUCOSE 129 MG/DL (70-105); TOTAL PROTEIN 6.8 GM/DL (6.4-8.2)
[2020-03-06] MEDS ORDERED: LORazepam INJ 2 MG/ML (ATIVAN) VIAL IVP ONE (18:30)
--- NOTE | 2020-03-06 18:30 | NUR ---
1 LITER NS STARTED BY EMS IN AT THIS TIME.
[2020-03-06 18:31] LABS: CARBON DIOXIDE 23 MMOL/L (21-32)
[2020-03-06 18:32] LABS: BILIRUBIN,TOTAL 1.6 MG/DL (0.1-1.0)
[2020-03-06 18:33] LABS: ALKALINE PHOSPHATASE 149 U/L (40-136)
[2020-03-06 18:34] LABS: CREATININE SERUM 0.77 MG/DL (0.60-1.30); GFR ESTIMATED > 60
[2020-03-06 18:35] LABS: ACETAMINOPHEN < 10 UG/ML (10-30); BUN/CREATININE RATIO 14
[2020-03-06 18:36] LABS: MAGNESIUM 1.9 MG/DL (1.6-2.4)
[2020-03-06 18:37] LABS: ALANINE AMINOTRANSFERASE 256 U/L (0-55)
[2020-03-06 18:38] LABS: CREATINE KINASE 433 U/L (30-200); LIPASE 62 U/L (8-78)
[2020-03-06 18:49] LABS: CLARITY,URINE CLEAR; COLOR,URINE YELLOW; GLUCOSE, URINE (UA) TRACE (NEGATIVE); KETONES,URINE 2+ (NEGATIVE); LEUKOCYTE ESTERASE ,URINE NEGATIVE (NEGATIVE); NITRITE,URINE NEGATIVE (NEGATIVE); PH,URINE 6.5 (5-9); PROTEIN,URINE 1+ (NEGATIVE)
--- NOTE | 2020-03-06 18:53 | NUR ---
AMOL [phone], SPOKE WITH DR. LEE AT THIS TIME AND THIS RN CALLED THE DAUGHTER, KAUSHAL JOHNSON [phone], AND INFORMED THEM OF PT'S CONDITION.
[2020-03-06 18:57] LABS: TSH (THYROID ANALYZER) 6.01 UIU/ML (0.35-4.94)
[2020-03-06 19:00] LABS: BACTERIA,URINE TRACE /HPF; WBC,URINE 0-2 /HPF
[2020-03-06 19:01] LABS: BILIRUBIN,URINE 2+ (NEGATIVE)
[2020-03-06 19:02] LABS: AMPHETAMINE SCREEN, URINE NEGATIVE (NEGATIVE); BARBITURATE SCREEN URINE NEGATIVE (NEGATIVE); BENZODIAZEPINES SCREEN URINE NEGATIVE (NEGATIVE); CANNABINOID SCREEN, URINE NEGATIVE (NEGATIVE); COCAINE SCREEN URINE NEGATIVE (NEGATIVE); METHADONE STAT NEGATIVE (NEGATIVE); METHAMPHETAMINE SCREEN URINE S NEGATIVE (NEGATIVE); OPIATE SCREEN URINE NEGATIVE (NEGATIVE); OXYCODONE STAT NEGATIVE (NEGATIVE); PROPOXYPHENE STAT NEGATIVE (NEGATIVE); TRICYCLIC ANTIDEPRESSANTS SCRE NEGATIVE (NEGATIVE)
--- NOTE | 2020-03-06 19:05 | Diagnostic Imaging Report ---
PATIENT HISTORY: Seizure. TECHNIQUE: Single frontal view of the chest. COMPARISON: 11/04/2019. FINDINGS: The lung volumes are large. No focal consolidation is seen. No large pleural effusion or pneumothorax is seen. The cardiomediastinal silhouette is normal in size and contour. No acute osseous abnormality is seen. IMPRESSION: Large lung volumes with no acute pulmonary abnormality seen. Dictated by: Dictated on workstation # [id number]
[2020-03-06 19:33] LABS: FREE T4 (FREE THYROXINE) 0.95 NG/DL (0.70-1.48)
--- NOTE | 2020-03-06 19:58 | NUR ---
CHARLIE JOHNSON admitted to room CU7-1, with an admitting diagnosis of Alcohol w/d, seizure, substance abuse, on 03/06/20 from [facility] ED via WC, accompanied by staff.CHARLIE JOHNSON introduced to surroundings, call light, bed controls, phone, TV, temperature control, lights, meal times, smoking policy, visitor policy, side rail policy, bathrooms and showers. Patient Rights given to patient in the handbook. CHARLIE JOHNSON verbalizes understanding that [facility] is not responsible for the loss or damage to any personal effects or valuables that are kept in the patients possession during their hospitalization. The following Patient Care Plans were discussed with the patient: Discharge Planning, alcohol wd protocol,activity, and room orientation. CHARLIE JOHNSON verbalizes understanding of Interdisciplinary Patient Education. Patient and/or family were informed about the Rapid Response Team and its purpose.
[2020-03-06] MEDS ORDERED: ONDANSETRON 4 MG/2 ML (SDV) Z0FRAN IVP PRN (20:15)
[2020-03-06] MEDS ORDERED: 1/2 NS IV SOLUTION 1,000 ML IV PRN (20:18)
[2020-03-06] MEDS ORDERED: SENNA W/DOCUSATE (SENOKOT S) TABLET PO PRN (20:30)
[2020-03-06] MEDS ORDERED: LORazepam 1 MG (ATIVAN) TAB PO PRN (20:30)
[2020-03-06] MEDS ORDERED: ONDANSETRON 4 MG (ZOFRAN) ORAL DISSOLVE TAB SL PRN (20:30)
[2020-03-06] MEDS ORDERED: ONDANSETRON 4 MG/2 ML (SDV) Z0FRAN IV PRN (20:30)
[2020-03-06] MEDS ORDERED: LORazepam INJ 2 MG/ML (ATIVAN) VIAL IM/IV PRN (20:30)
[2020-03-06] MEDS ORDERED: D5 1/2 NS 1000 ML IV SOLUTION 1,000 ML IV PRN (20:30)
[2020-03-06] MEDS ORDERED: ANTACID SUSP 30 ML UDC (MYLANTA) PO PRN (20:30)
[2020-03-06] MEDS ORDERED: NICOTINE 21 MG (NICODERM) PATCH ONE (21:05)
[2020-03-06] MEDS: THIAMINE INJECTION 100 MG, FOLIC ACID INJECTION 1 MG, MAGNESIUM SULFATE 2 GM, VITAMIN M... IV SCH ×5 (21:11)
[2020-03-06] MEDS: D5 1/2 NS W/KCL 20 MEQ/L 1,000 ML IV SCH (21:14)
[2020-03-06] MEDS: LORazepam INJ 2 MG/ML (ATIVAN) VIAL IV PRN (22:19)
[2020-03-06] MEDS ORDERED: MAGNESIUM 1 GM/100 ML IVPB 0 ML IV ONE (22:48)
[2020-03-06] MEDS: POTASSIUM CL 10MEQ/50ML IVPB 50 ML IV SCH ×2 (22:58→23:59)
[2020-03-06] MEDS ORDERED: MAGNESIUM 1 GM/100 ML IVPB 100 ML IV SCH (23:00)
[2020-03-07] VITALS (24 sets, daily range): BP systolic 107–171; BP diastolic 59–120
[2020-03-07] MEDS: POTASSIUM CL 10MEQ/50ML IVPB 50 ML IV SCH ×5 (01:00→04:55)
[2020-03-07] MEDS: LEVETIRACETAM 1,000 MG/NS 100 ML IVPB IV SCH ×4 (02:22→10:34)
[2020-03-07] MEDS: THIAMINE INJECTION 100 MG, FOLIC ACID INJECTION 1 MG, MAGNESIUM SULFATE 2 GM, VITAMIN M... IV SCH ×10 (02:34→08:06)
[2020-03-07] MEDS: D5 1/2 NS W/KCL 20 MEQ/L 1,000 ML IV SCH ×3 (02:36→19:57)
[2020-03-07 03:40] LABS: BASOPHILS % (AUTO) 0 % (0-10); EOSINOPHILS % (AUTO) 1 % (0-10); HEMATOCRIT 35 % (40-54); HEMOGLOBIN 12.1 G/DL (13.3-17.7); LYMPHOCYTES # (AUTO) 0.8 X 10^3 (1.0-4.0); LYMPHOCYTES % (AUTO) 18 % (12-44); MEAN CORPUSCULAR HEMOGLOBIN 32 PG (25-34); MEAN CORPUSCULAR HGB CONC 35 G/DL (32-36); MEAN CORPUSCULAR VOLUME 91 FL (80-99); MEAN PLATELET VOLUME 11.6 FL (7.4-10.4); MONOCYTES # (AUTO) 0.4 X 10^3 (0.0-1.0); MONOCYTES % (AUTO) 9 % (0-12); NEUTROPHILS # (AUTO) 3.4 X 10^3 (1.8-7.8); NEUTROPHILS % (AUTO) 73 % (42-75); PLATELET COUNT 72 10^3/uL (130-400); RED CELL DISTRIBUTION WIDTH 12.1 % (10.0-14.5); WHITE BLOOD COUNT 4.7 10^3/uL (4.3-11.0)
[2020-03-07 03:50] LABS: ALBUMIN 3.4 GM/DL (3.2-4.5); CHLORIDE 98 MMOL/L (98-107); POTASSIUM 3.4 MMOL/L (3.6-5.0); SODIUM 132 MMOL/L (135-145)
[2020-03-07 03:53] LABS: GLUCOSE 147 MG/DL (70-105); TOTAL PROTEIN 5.4 GM/DL (6.4-8.2)
[2020-03-07 03:54] LABS: BILIRUBIN,TOTAL 1.4 MG/DL (0.1-1.0); CARBON DIOXIDE 24 MMOL/L (21-32)
[2020-03-07 03:56] LABS: ALKALINE PHOSPHATASE 116 U/L (40-136); CREATININE SERUM 0.63 MG/DL (0.60-1.30); GFR ESTIMATED > 60; PHOSPHORUS 1.9 MG/DL (2.3-4.7)
[2020-03-07 03:57] LABS: BUN/CREATININE RATIO 10
[2020-03-07 03:59] LABS: ALANINE AMINOTRANSFERASE 193 U/L (0-55); MAGNESIUM 2.4 MG/DL (1.6-2.4)
[2020-03-07 04:00] LABS: CREATINE KINASE 614 U/L (30-200)
[2020-03-07] MEDS: KCL 20 MEQ TAB (K-DUR) PO SCH (04:02)
[2020-03-07] MEDS: MAGNESIUM 1 GM/100 ML IVPB 100 ML IV SCH (04:02)
[2020-03-07 04:27] LABS: CREATINE KINASE MB 15.2 NG/ML (<6.6)
--- NOTE | 2020-03-07 05:54 | Pulmonary Consultation ---
History of Present Illness History of Present Illness Date Seen by Provider: March 07, 2020 Time Seen by Provider: 05:50 Date of Admission History of Present Illness 49yo with hx of albohol dependance presented to ED with acute seizures. Last drink was 2 days prior to admisison. He is planning on going to rehab 04/03/20. Upon ED admission he was showing signs of alcohol intoxication. I am consulted for ICU management. . Allergies and Home Medications Allergies Uncoded Allergies: yellow jacket (Allergy, Severe, Anaphylaxis, 04/10/19) has epi pen guinea wasp (Adverse Reaction, Severe, Anaphylaxis, 04/10/19) uses epi pen Home Medications Acetaminophen 500 Mg Tablet, 1,000 MG PO Q8H PRN for PAIN-MILD (1-4), (Reported) Amlodipine Besylate 5 Mg Tablet, 5 MG PO DAILY, (Reported) Atorvastatin Calcium 20 Mg Tablet, 20 MG PO HS, (Reported) Budesonide/Formoterol Fumarate 10.2 Gm Hfa.aer.ad, 2 PUFF IH BID PRN for SHORTNESS OF BREATH, (Reported) Cetirizine HCl 10 Mg Tablet, 10 MG PO DAILY PRN for ALLERGY SYMPTOMS, (Reported) Fluoxetine HCl 40 Mg Capsule, 40 MG PO DAILY, (Reported) Lisinopril 20 Mg Tablet, 20 MG PO DAILY, (Reported) Meloxicam 15 Mg Tablet, 15 MG PO DAILY, (Reported) Olanzapine 10 Mg Tablet, 10 MG PO HS, (Reported) Pantoprazole Sodium 40 Mg Tablet.dr, 40 MG PO DAILY, (Reported) Sucralfate 1 Gm Tablet, 1 GM PO QIDACHS PRN for GI UPSET, (Reported) Tamsulosin HCl 0.4 Mg Cap, 0.4 MG PO DAILY, (Reported) Past Jzsmgsi-Ynsnjp-Hnpxnh Hx Past Med/Social Hx: Reviewed and Corrections made Patient Social History Alcohol Use: Regular Use (12 PACK OF 18 OZ BEERS/DAY) Number of Drinks Today: 2 Alcohol Beverage of Choice: Beer Recreational Drug Use: No Smoking Status: Current Everyday Smoker (1 PPD) Type Used: Cigarettes (1 PPD) 2nd Hand Smoke Exposure: No Recent Foreign Travel: No Contact w/Someone Who Travel: No Recent Infectious Disease Expo: No Recent Hopitalizations: No Seasonal Allergies Seasonal Allergies: No Past Medical History Surgeries: Yes (LEFT INGUINAL HERNIA REPAIR) Abdominal Respiratory: Yes COPD Cardiac: Yes High Cholesterol, Hypertension Neurological: Yes (MEMORY IMPAIRMENT;ETOH WITHDRAWL SEIZURE 03/06/20;DT'S/HALLUCINATIONS ) Seizure Disorder Genitourinary: Yes Prostate Problems Gastrointestinal: Yes (LEFT INGUINAL HERNIA REPAIR;ELEVATED LFT'S 03/06/20) Abdominal Hernia, Gastroesophageal Reflux Musculoskeletal: No Endocrine: No HEENT: No Cancer: No Psychosocial: Yes (ALCOHOLISM;DT'S WITH HALLUCINATIONS 03/2019;WITHDRAWL SEIZURE 03/06/2020) Anxiety, Bipolar, Depression Integumentary: No Blood Disorders: No Family Medical History Diabetes mellitus 19 FATHER No Pertinent Family Hx Review of Systems Time Seen by Provider: 05:54 Sepsis Event Evaluation Height, Weight, BMI Height: 5'8.00" Weight: 150lbs. 4.0oz. 68.826061hw; 21.77 BMI Method: Exam Exam Vital Signs Date Time Temp Pulse Resp B/P (MAP) Pulse Ox O2 Delivery O2 Flow Rate FiO2 03/07/20 05:00 86 13 120/102 (108) 95 Room Air 03/07/20 04:00 87 14 139/95 (110) 93 Room Air 03/07/20 03:50 37.1 89 14 92 Room Air 03/07/20 03:50 91 Room Air 03/07/20 03:00 84 18 133/88 (103) 96 Room Air 03/07/20 02:00 88 19 130/101 (111) 94 Room Air 03/07/20 01:00 96 19 159/96 (117) 97 Room Air 03/07/20 01:00 93 03/07/20 00:00 86 23 117/89 (98) 96 Room Air 03/06/20 23:30 36.8 Room Air 03/06/20 23:30 36.8 03/06/20 23:30 97 Room Air 03/06/20 23:00 107 25 102/77 (85) 93 Room Air 03/06/20 22:00 105 20 121/74 (90) 96 Room Air 03/06/20 21:45 90 21 94/64 (74) 98 Room Air 03/06/20 21:15 73 19 116/68 (84) 96 Room Air 03/06/20 21:00 96 14 116/68 (84) 97 Room Air 03/06/20 20:45 76 16 124/91 (102) 97 Room Air 03/06/20 20:45 76 16 124/91 (102) 97 Room Air 03/06/20 20:30 89 15 123/93 (103) 96 Room Air 03/06/20 20:30 89 15 123/93 (103) 96 Room Air 03/06/20 20:15 79 22 133/92 (106) 97 Room Air 03/06/20 20:15 79 22 133/92 (106) 97 Room Air 03/06/20 20:02 80 03/06/20 20:00 96 Room Air 03/06/20 19:58 36.5 79 16 130/87 (101) 96 Room Air 03/06/20 19:56 36.2 88 16 113/103 (100) 96 Room Air 03/06/20 18:04 36.2 80 16 131/85 (100) 96 Room Air I & O 03/07/20 07:00 Intake Total 5285.2 ml Output Total 4150 ml Balance 1135.2 ml Height & Weight Height: 5'8.00" Weight: 150lbs. 4.0oz. 68.157385gs; 21.77 BMI Method: General Appearance: No Apparent Distress, WD/WN, Other (NO INCONTINENCE) HEENT: PERRL/EOMI, TMs Normal, Normal ENT Inspection, Pharynx Normal, Other (NO EXTERNAL EVIDENCE OF TRAUMA-NO EVIDENCE OF BITING TONGUE, ETC. ) Neck: Full Range of Motion, Normal Inspection, Non Tender, Supple Respiratory: Normal Breath Sounds, No Accessory Muscle Use, No Respiratory Distress Cardiovascular: Regular Rate, Rhythm, No Edema, No JVD, No Murmur, Normal P eripheral Pulses Capillary Refill: Less Than 3 Seconds Extremity: Normal Capillary Refill, Normal Inspection, Normal Range of Motion, Non Tender, No Calf Tenderness, No Pedal Edema Neurologic/Psychiatric: Alert, Oriented x3 (BUT WITH SOME LIMITED MEMORY-- STATES IS NORMAL FOR HIM), No Motor/Sensory Deficits, Normal Mood/Affect, family services assistant II-XII Norm as Tested, Other (VERY TREMULOUS. DOES NOT APPEAR POST ICTAL AT THIS TIME. ) Skin: Normal Color, Warm/Dry; No Ecchymosis, No Rash Results Lab Laboratory Tests 03/06/20 18:05 03/07/20 03:13 Assessment/Plan Assessment/Plan Acute alcohol withdrawal -CIWA protocol Hypokalemia -replace Acute withdrawal seizure Alcoholic hepatitis KEENA CABRERA DO March 07, 2020 05:54
[2020-03-07] MEDS ORDERED: POTASSIUM PHOSPHATE INJ 30 MM in NS (IVPB) 250 ML IV ONE (06:00)
[2020-03-07] MEDS: NICOTINE PATCH REMOVAL TP SCH (08:06)
[2020-03-07] MEDS: ENOXAPARIN 40 MG/0.4 ML (LOVENOX) SYR SC SCH (08:06)
[2020-03-07] MEDS: PANTOPRAZOLE 40 MG (PROTONIX) VIAL IV SCH (08:06)
[2020-03-07] MEDS: NICOTINE 21 MG (NICODERM) PATCH TD SCH (08:06)
[2020-03-07] MEDS ORDERED: THIAMINE INJECTION 100 MG, FOLIC ACID INJECTION 1 MG, VITAMIN MULTI INJECTION 10 ML, MA... IV SCH ×5 (09:00)
--- NOTE | 2020-03-07 09:00 | NUR ---
Order received from for cardioversion. Informed consent obtained from patient. 0900 anesthesia and in room, procedure beginning. patient given 60mg propofol total throughout the procedure by anesthesia. x3 shocks delivered per , all at 200j. cardioversion unsuccessful, patient remains in Afib. procedure end time at 0910. 0912 patient alert and oriented. VSS. Remaining 14ml of propofol wasted by this nurse with Salome Rojas RN witnessing waste.
--- NOTE | 2020-03-07 09:22 | NUR ---
CM/SS visited with patient for social service consult. The patient was willing to talk to this ss. He states that he is here due to alcohol withdrawal. His found him in the home having "convulsions". The patient reports that he has never experienced that before. CM/SS asked the patient what his drink of choice is and he verbalized that he drinks a 12 pack beer every day. Per the patient, he states he didn't start having a problem with drinking until approximately 10 years ago. He reports that he has a plan for after being discharge from the hospital until he is able to get into treatment. In March, he states that he has an appointment in [place] for drug and alcohol treatment. CM/SS asked if he would be wiling to go [facility] until he has his appointment and he declined stating that they will not let him back in for a second time. CM/SS asked if he had a specific plan for when he discharges home. He stated "I won't even touch it again and will spend time with my kids". CM/SS discussed how having a written out plan may be useful. He reports he is going to continue with AA 4x a day, and follow with [facility]'s daily outpatient group. He does not have a AA sponsor yet; however, this CM/SS discussed him calling someone while in the hospital to have it set up prior to discharge. The patient verbalized understanding and stated he would work on it. He states he had an appointment with Mental health a few weeks prior to this admission and will have another appointment in a month. He reports he takes medications for anxiety and depression. The patient reports he has been to [facility] a few years back and felt that it was helpful at the time. He states that he has been waiting for a long time to get back into treatment due to a lack of resources in the area. CM/SS will follow with patient to assist in having an outpatient plan until his treatment in March.
[2020-03-07] MEDS ORDERED: AMLO5TAB9 PO (10:14)
[2020-03-07] MEDS ORDERED: LISI-552 PO (10:14)
[2020-03-07] MEDS ORDERED: OLAN10TA19 PO (10:14)
[2020-03-07] MEDS ORDERED: SUCR1TAB36 PO (10:14)
[2020-03-07] MEDS ORDERED: PANT40TA2 PO (10:14)
[2020-03-07] MEDS ORDERED: MELO15TA39 PO (10:14)
[2020-03-07] MEDS ORDERED: BUDE10.2 IH (10:14)
[2020-03-07] MEDS ORDERED: ACET-2267 PO (10:15)
[2020-03-07] MEDS ORDERED: CETI10TA21 PO (10:15)
--- NOTE | 2020-03-07 10:19 | NUR ---
SPOKE WITH THE PT AND CALLED HIS AMOL- AND HAD [facility] FAX A MED LIST ( I WILL ATTACH A COPY TO HIS CHART)TO COMPLETE THE MED REC PT WAS UNABLE TO NAME HIS MEDICATIONS BUT TOLD ME IF I CALLED HIS AMOL SHE KNOWS ALL HIS MEDS AND TAKES CARE OF THEM FOR HIM. FLUOXETINE 40MG- DIRECTIONS ARE "2 CAPS AM" HOWEVER ON A RECENT APPT THE PT WAS TOLD TO LOWER HIS DOSE AND JUST TAKE 1 CAP AM. THE PROVIDER SENT A NEW RX TO THE PHARMACY TO REFLECT THOSE DIRECTIONS BUT TOLD THE PT TO JUST USE THE SUPPLY HE ALREADY HAD BEFORE FILLING THE SCRIPT WITH NEW DIRECTIONS. THE FOLLOWING MEDICATIONS WERE FILLED THRU THE REPOSITORY: 11-07-2019 PROTONIX 40MG #90/45DS (DIRECTIONS ARE 1 TAB BID HOWEVER THE PT ONLY TAKES 1 ) 11-07-2019 CARAFATE 1GM #90/22DS (DIRECTIONS ARE 1 TAB QIDAC HOWEVER THE PT TAKES PRN) 12-04-2019 ATORVASTATIN 20MG #90/90DS 12-04-2019 LISINOPRIL 20MG #90/90DS 12-04-2019 AMLODIPINE 5MG #90/90DS 02-15-2020 TAMSULOSIN 0.4MG #90/90DS 02-15-2020 MELOXICAM 15MG #90/90DS MEDICATIONS FILLED THRU [facility]: 02-10-2020 FLUOXETINE 40MG #60/60DS (PLEASE SEE NOTE ABOVE) 02-15-2020 SYMBICORT 160/4.5 #1 03-05-2020 OLANZAPINE 10MG #30/30DS OTC MEDS: TYLENOL AND ZYRTEC BOTH PRN Addendum: 03/07/20 at 1040 by JUAN A LAGOS [facility] THE FOLLOWING MEDICATIONS ARE LISTED ON THE MED LIST FROM THE PHARMACY BUT THE PT IS NO LONGER TAKING THEM: HYDROXYZINE 50MG MIRTAZAPINE 45MG OLANZAPINE 20MG NICOTINE PATCH 14MG/24HR
[2020-03-07] MEDS: LORazepam INJ 2 MG/ML (ATIVAN) VIAL IV PRN ×3 (10:42→21:46)
--- NOTE | 2020-03-07 11:55 | History & Physical-Hospitalist ---
History of Present Illness HPI/Chief Complaint CC: ETOH withdrawal with new onset seizure placed on Keppra and ICU for detox protocol HPI: This is a severe alcoholic who presents to the ER with new onset seizure since alcohol cessation 2 days prior in prep for alcohol rehab 04/03/2020. Currently patient is very anxious and has severe tremors and protocol followed. Patient has had no further seizure activity. Source: patient, RN/MD Exam Limitations: no limitations Date Seen 03/07/20 Time Seen by a Provider: 10:00 Attending Physician Mckayla Esquivel Julie A MD Referring Physician Date of Admission March 06, 2020 at 18:45 Home Medications & Allergies Home Medications Reviewed patient Home Medication Reconciliation performed by pharmacy medication reconciliations metal room dental technician and/or nursing. Patients Allergies have been reviewed. Allergies Allergies Uncoded Allergies yellow jacket ( Allergy, Severe, Anaphylaxis, 04/10/19) has epi pen guinea wasp ( Adverse Reaction, Severe, Anaphylaxis, 04/10/19) uses epi pen Past Gveontk-Itsymc-Zvmcsf Hx Past Med/Social Hx: Reviewed Nursing Past Med/Soc Hx, Reviewed and Corrections made Patient Social History Marrital Status: single Employed/Student: unemployed Alcohol Use: Regular Use (12 PACK OF 18 OZ BEERS/DAY) Number of Drinks Today: 2 Alcohol Beverage of Choice: Beer Recreational Drug Use: No Smoking Status: Current Everyday Smoker (1 PPD) Type Used: Cigarettes (1 PPD) 2nd Hand Smoke Exposure: No Recent Foreign Travel: No Contact w/other who traveled: No Recent Hopitalizations: No Recent Infectious Disease Expo: No Seasonal Allergies Seasonal Allergies: No Past Medical History Surgeries: Abdominal Cardiac: High Cholesterol, Hypertension Neurological: Seizure Disorder Genitourinary: Prostate Problems Gastrointestinal: Abdominal Hernia, Gastroesophageal Reflux Psychosocial: Anxiety, Bipolar, Depression History of Blood Disorders: No Family History Diabetes mellitus 19 FATHER No Pertinent Family Hx Review of Systems Constitutional: see HPI Psychiatric/Neurological: Anxiety, Seizure Physical Exam Physical Exam Vital Signs Vital Signs - First Documented 03/06/20 18:04 Temp 36.2 Pulse 80 Resp 16 B/P (MAP) 131/85 (100) Pulse Ox 96 O2 Delivery Room Air Capillary Refill : Less Than 3 Seconds Height, Weight, BMI Height: 5'8.00" Weight: 150lbs. 4.0oz. 68.362322pj; 21.77 BMI Method: General Appearance: Anxious, Chronically ill, Mild Distress Eyes: Right Eye Normal Inspection, Right Eye PERRL HEENT: PERRL/EOMI, Normal ENT Inspection, Pharynx Normal, Moist Mucous Membranes Neck: Full Range of Motion, Normal Inspection, Non Tender Respiratory: Chest Non Tender, Lungs Clear, Normal Breath Sounds, No Accessory Muscle Use, No Respiratory Distress Cardiovascular: Regular Rate, Rhythm, No Edema, No Gallop, No JVD, No Murmur, Normal Peripheral Pulses Gastrointestinal: Normal Bowel Sounds, No Organomegaly, No Pulsatile Mass, Non Tender, Soft Back: Normal Inspection, No CVA Tenderness, No Vertebral Tenderness Extremity: Normal Capillary Refill, Normal Inspection, Normal Range of Motion, Non Tender, No Calf Tenderness, No Pedal Edema Neurologic/Psychiatric: Alert, Oriented x3, No Motor/Sensory Deficits, Normal 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 Assessment/Plan Admission Diagnosis Assessment: ETOH withdrawal seizure Smoker Plan: Keppra ETOH withdrawal Admission Status: Inpatient Order (span 2 midnights) Reason for Inpatient Admission: etoh withdrawal Diagnosis/Problems Diagnosis/Problems (1) Alcohol withdrawal seizure (2) Alcohol withdrawal Status: Acute (3) Alcohol abuse (4) HTN (hypertension) Status: Chronic Clinical Quality Measures DVT/VTE Risk/Contraindication: Risk Factor Score Per Nursin RFS Level Per Nursing on Admit: 4+=Very High MCKAYLA ESQUIVEL DO March 07, 2020 11:54
--- NOTE | 2020-03-07 14:42 | NUR ---
verbal order received from to change neuro checks to Q4H from Q1H
[2020-03-07 21:44] LABS: HEPATITIS C ANTIBODY C Non-Reactive (Non-Reactive)
[2020-03-07] MEDS ORDERED: DexMEDEtomidine 250 ML DRIP 250 ML IV ONE (23:37)
[2020-03-08] VITALS (21 sets, daily range): BP systolic 95–166; BP diastolic 76–118
[2020-03-08] MEDS: DexMEDEtomidine 250 ML DRIP 250 ML IV SCH ×3 (00:03→21:38)
[2020-03-08] MEDS: D5 1/2 NS W/KCL 20 MEQ/L 1,000 ML IV SCH ×4 (00:04→20:43)
--- NOTE | 2020-03-08 00:04 | NUR ---
PT INCREASING AGITATION. TRYING TO LEAVE HIS ROOM. ATIVAN GIVEN PREVIOUSLY BUT CAUSED INCREASING AGITATION. PRECEDEX DRIP STARTED. WILL CONTINUE TO MONITOR PT.
[2020-03-08 04:01] LABS: BASOPHILS % (AUTO) 0 % (0-10); EOSINOPHILS % (AUTO) 1 % (0-10); HEMATOCRIT 40 % (40-54); HEMOGLOBIN 13.5 G/DL (13.3-17.7); LYMPHOCYTES # (AUTO) 0.9 X 10^3 (1.0-4.0); LYMPHOCYTES % (AUTO) 21 % (12-44); MEAN CORPUSCULAR HEMOGLOBIN 31 PG (25-34); MEAN CORPUSCULAR HGB CONC 34 G/DL (32-36); MEAN CORPUSCULAR VOLUME 92 FL (80-99); MONOCYTES # (AUTO) 0.5 X 10^3 (0.0-1.0); MONOCYTES % (AUTO) 10 % (0-12); NEUTROPHILS % (AUTO) 68 % (42-75); PLATELET COUNT 91 10^3/uL (130-400); RED CELL DISTRIBUTION WIDTH 12.2 % (10.0-14.5); WHITE BLOOD COUNT 4.4 10^3/uL (4.3-11.0)
[2020-03-08 04:24] LABS: BUN/CREATININE RATIO 3; CALCIUM 8.5 MG/DL (8.5-10.1); CARBON DIOXIDE 22 MMOL/L (21-32); CHLORIDE 100 MMOL/L (98-107); CREATININE SERUM 0.61 MG/DL (0.60-1.30); GFR ESTIMATED > 60; GLUCOSE 194 MG/DL (70-105); MAGNESIUM 2.5 MG/DL (1.6-2.4); PHOSPHORUS 3.1 MG/DL (2.3-4.7); POTASSIUM 3.1 MMOL/L (3.6-5.0); SODIUM 133 MMOL/L (135-145)
--- NOTE | 2020-03-08 05:26 | Pulmonary Progress Note ---
Subjective Time Seen by a Provider: 05:23 Subjective/Events-last exam Pt is currently comfortable. Sepsis Event Evaluation Height, Weight, BMI Height: 5'8.00" Weight: 150lbs. 4.0oz. 68.008545xp; 21.77 BMI Method: Exam Exam Vital Signs Date Time Temp Pulse Resp B/P (MAP) Pulse Ox O2 Delivery O2 Flow Rate FiO2 03/08/20 04:12 36.5 03/08/20 04:00 Room Air 03/08/20 03:00 67 17 140/96 (111) 94 Room Air 03/08/20 02:00 60 17 166/105 (125) 94 Room Air 03/08/20 01:00 62 15 137/104 (115) 91 Room Air 03/08/20 01:00 36.4 03/08/20 01:00 63 03/08/20 00:03 76 159/111 03/08/20 00:00 79 18 154/87 (109) Room Air 03/08/20 00:00 Room Air 03/07/20 23:00 76 17 159/111 (127) 92 Room Air 03/07/20 22:00 79 20 146/106 (119) 96 Room Air 03/07/20 21:40 36.5 03/07/20 21:00 77 19 133/120 (124) 97 Room Air 03/07/20 20:00 Room Air 03/07/20 20:00 107 21 134/113 (120) 97 Room Air 03/07/20 19:00 93 03/07/20 19:00 80 15 168/102 (124) 99 Room Air 03/07/20 18:00 92 13 151/68 (95) 96 Room Air 03/07/20 17:00 93 19 108/82 (91) 96 Room Air 03/07/20 16:30 36.8 03/07/20 16:00 95 Room Air 03/07/20 16:00 118 22 168/113 (131) 96 Room Air 03/07/20 15:00 90 21 139/107 (118) 96 Room Air 03/07/20 14:00 92 15 107/97 (100) 96 Room Air 03/07/20 13:00 37.1 03/07/20 13:00 90 20 139/59 (85) 97 Room Air 03/07/20 12:40 90 03/07/20 12:00 111 18 131/90 (104) Room Air 03/07/20 12:00 95 Room Air 03/07/20 11:00 91 18 146/103 (117) 97 Room Air 03/07/20 10:00 93 17 132/97 (109) 97 Room Air 03/07/20 09:00 96 25 136/86 (103) 94 Room Air 03/07/20 09:00 37.0 03/07/20 08:00 95 Room Air 03/07/20 08:00 112 23 171/59 (96) 91 Room Air 03/07/20 07:00 101 03/07/20 07:00 86 23 139/80 (99) 99 Room Air 03/07/20 06:00 84 24 141/97 (112) 98 Room Air I & O 03/08/20 07:00 Intake Total 5865.2 ml Output Total 8225 ml Balance -2359.8 ml Height & Weight Height: 5'8.00" Weight: 150lbs. 4.0oz. 68.032817tj; 21.77 BMI Method: General Appearance: Anxious, Chronically ill, Mild Distress HEENT: PERRL/EOMI, Normal ENT Inspection, Pharynx Normal, Moist Mucous Membranes Neck: Full Range of Motion, Normal Inspection, Non Tender Respiratory: Chest Non Tender, Lungs Clear, Normal Breath Sounds, No Accessory Muscle Use, No Respiratory Distress Cardiovascular: Regular Rate, Rhythm, No Edema, No Gallop, No JVD, No Murmur, Normal Peripheral Pulses Capillary Refill: Less Than 3 Seconds Extremity: Normal Capillary Refill, Normal Inspection, Normal Range of Motion, Non Tender, No Calf Tenderness, No Pedal Edema Neurologic/Psychiatric: Alert, Oriented x3, No Motor/Sensory Deficits, Normal 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
[2020-03-08] MEDS: POTASSIUM CL 10MEQ/50ML IVPB 50 ML IV SCH ×9 (06:47→15:04)
[2020-03-08] MEDS: KCL 20 MEQ TAB (K-DUR) PO SCH (06:48)
[2020-03-08] MEDS: MAGNESIUM 1 GM/100 ML IVPB 100 ML IV SCH (06:48)
[2020-03-08] MEDS: ENOXAPARIN 40 MG/0.4 ML (LOVENOX) SYR SC SCH (08:55)
[2020-03-08] MEDS: NICOTINE 21 MG (NICODERM) PATCH TD SCH (08:56)
[2020-03-08] MEDS: PANTOPRAZOLE 40 MG (PROTONIX) VIAL IV SCH (08:56)
[2020-03-08] MEDS: NICOTINE PATCH REMOVAL TP SCH (08:56)
[2020-03-08] MEDS: THIAMINE INJECTION 100 MG, FOLIC ACID INJECTION 1 MG, MAGNESIUM SULFATE 2 GM, VITAMIN M... IV SCH ×5 (08:56)
--- NOTE | 2020-03-08 11:46 | Progress Note - Hospitalist ---
Subjective HPI/CC On Admission Date Seen by Provider: March 08, 2020 Time Seen by Provider: 10:00 CC: ETOH withdrawal with new onset seizure placed on Keppra and ICU for detox protocol HPI: This is a severe alcoholic who presents to the ER with new onset seizure since alcohol cessation 2 days prior in prep for alcohol rehab 04/03/2020. Currently patient is very anxious and has severe tremors and protocol followed. Patient has had no further seizure activity. Subjective/Events-last exam Patient is somewhat agitated this morning. Precedex had to be instituted overnight because of his agitation. He wants to go home and wants his IVs out. He can be talked to and calmed down. Review of Systems Neurological: Confusion Objective Exam Vital Signs Vital Signs Date Time Temp Pulse Resp B/P (MAP) Pulse Ox O2 Delivery O2 Flow Rate FiO2 03/08/20 11:00 58 14 134/99 (111) 98 Room Air 03/08/20 08:00 36.4 Capillary Refill : Less Than 3 Seconds General Appearance: Chronically ill Neck: Supple Respiratory: Chest Non Tender, Lungs Clear, Normal Breath Sounds, No Accessory Muscle Use, No Respiratory Distress Cardiovascular: Regular Rate, Rhythm, No Gallop, No JVD, No Murmur, Normal Peripheral Pulses Gastrointestinal: Normal Bowel Sounds, No Organomegaly, No Pulsatile Mass, Non Tender, Soft Rectal: Deferred Back: Normal Inspection Extremity: No Pedal Edema Results/Procedures Lab Laboratory Tests 03/08/20 03:29 Patient resulted labs reviewed. Assessment/Plan Assessment and Plan Assess & Plan/Chief Complaint Acute alcohol withdrawal History of seizures secondary to withdrawal Elevated liver functions secondary to alcoholic hepatitis Plan to continue supportive care replace electrolytes as needed Clinical Quality Measures DVT/VTE Risk/Contraindication: Risk Factor Score Per Nursin RFS Level Per Nursing on Admit: 4+=Very High LIGIA FERGUSON MD March 08, 2020 11:46
[2020-03-08] MEDS: LORazepam INJ 2 MG/ML (ATIVAN) VIAL IV PRN ×3 (14:08→21:31)
[2020-03-09] VITALS (12 sets, daily range): BP systolic 136–157; BP diastolic 96–111
[2020-03-09] MEDS: LORazepam INJ 2 MG/ML (ATIVAN) VIAL IV PRN ×3 (00:55→06:40)
[2020-03-09 02:48] LABS: BASOPHILS % (AUTO) 0 % (0-10); EOSINOPHILS # (AUTO) 0.1 10^3/uL (0.0-0.3); EOSINOPHILS % (AUTO) 1 % (0-10); HEMATOCRIT 38 % (40-54); HEMOGLOBIN 13.1 G/DL (13.3-17.7); LYMPHOCYTES # (AUTO) 1.2 X 10^3 (1.0-4.0); LYMPHOCYTES % (AUTO) 20 % (12-44); MEAN CORPUSCULAR HEMOGLOBIN 32 PG (25-34); MEAN CORPUSCULAR HGB CONC 34 G/DL (32-36); MEAN CORPUSCULAR VOLUME 94 FL (80-99); MONOCYTES # (AUTO) 0.9 X 10^3 (0.0-1.0); MONOCYTES % (AUTO) 15 % (0-12); NEUTROPHILS # (AUTO) 3.9 X 10^3 (1.8-7.8); NEUTROPHILS % (AUTO) 64 % (42-75); PLATELET COUNT 106 10^3/uL (130-400); RED CELL DISTRIBUTION WIDTH 12.6 % (10.0-14.5); WHITE BLOOD COUNT 6.1 10^3/uL (4.3-11.0)
[2020-03-09 03:03] LABS: CHLORIDE 101 MMOL/L (98-107); POTASSIUM 4.5 MMOL/L (3.6-5.0); SODIUM 130 MMOL/L (135-145)
[2020-03-09 03:06] LABS: GLUCOSE 146 MG/DL (70-105)
[2020-03-09 03:09] LABS: PHOSPHORUS 2.2 MG/DL (2.3-4.7)
[2020-03-09 03:12] LABS: MAGNESIUM 2.3 MG/DL (1.6-2.4)
[2020-03-09 03:14] LABS: BUN/CREATININE RATIO 3; CALCIUM 8.5 MG/DL (8.5-10.1); CARBON DIOXIDE 22 MMOL/L (21-32); GFR ESTIMATED > 60
[2020-03-09] MEDS: D5 1/2 NS W/KCL 20 MEQ/L 1,000 ML IV SCH (03:28)
[2020-03-09] MEDS: MAGNESIUM 1 GM/100 ML IVPB 100 ML IV SCH (03:48)
[2020-03-09] MEDS: POTASSIUM CL 10MEQ/50ML IVPB 50 ML IV SCH (03:48)
[2020-03-09] MEDS: KCL 20 MEQ TAB (K-DUR) PO SCH (03:48)
--- NOTE | 2020-03-09 05:59 | Pulmonary Progress Note ---
Subjective Time Seen by a Provider: 05:54 Subjective/Events-last exam No complications noted. Sepsis Event Evaluation Height, Weight, BMI Height: 5'8.00" Weight: 150lbs. 4.0oz. 68.616642nu; 21.77 BMI Method: Exam Exam Vital Signs Date Time Temp Pulse Resp B/P (MAP) Pulse Ox O2 Delivery O2 Flow Rate FiO2 03/09/20 04:00 64 16 97 Room Air 03/09/20 03:30 Room Air 03/09/20 03:29 36.3 03/09/20 03:00 63 16 95 Room Air 03/09/20 02:00 65 16 150/107 (121) 95 Room Air 03/09/20 01:00 76 03/09/20 01:00 85 18 150/110 (123) 96 Room Air 03/09/20 00:00 64 16 157/110 (126) 96 Room Air 03/09/20 00:00 Room Air 03/08/20 23:27 36.2 03/08/20 23:00 64 18 157/108 (124) Room Air 03/08/20 22:00 63 18 96 Room Air 03/08/20 21:38 64 157/116 03/08/20 21:00 68 18 158/113 (128) 97 Room Air 03/08/20 20:44 36.3 64 18 157/116 (130) 96 Room Air 03/08/20 20:00 Room Air 03/08/20 20:00 62 18 Room Air 03/08/20 19:00 63 18 91 Room Air 03/08/20 19:00 65 03/08/20 18:00 87 21 138/106 (117) Room Air 03/08/20 17:00 59 14 155/107 (123) 97 Room Air 03/08/20 16:17 Room Air 03/08/20 16:01 36.0 03/08/20 16:00 58 16 159/110 (126) 96 Room Air 03/08/20 15:00 58 16 157/103 (121) 97 Room Air 03/08/20 14:00 60 16 148/118 (128) 96 Room Air 03/08/20 13:00 57 16 153/109 (124) 98 Room Air 03/08/20 12:40 62 03/08/20 12:35 Room Air 03/08/20 12:00 36.3 81 16 129/88 (102) 96 Room Air 03/08/20 11:00 58 14 134/99 (111) 98 Room Air 03/08/20 10:00 57 13 131/76 (94) 97 Room Air 03/08/20 09:15 58 116/100 03/08/20 09:00 61 13 116/100 (105) 97 Room Air 03/08/20 08:30 Room Air 03/08/20 08:00 36.4 58 16 95/81 (86) 98 Room Air 03/08/20 06:41 60 03/08/20 06:00 60 15 135/103 (114) 94 Room Air I & O 03/09/20 07:00 Intake Total 5100 ml Output Total 5125 ml Balance -25 ml Height & Weight Height: 5'8.00" Weight: 150lbs. 4.0oz. 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
[2020-03-09] MEDS ORDERED: D5 NS 1000 ML IV SOLUTION 1,000 ML IV SCH (06:00)
[2020-03-09] MEDS ORDERED: morphine INJ 4 MG/ML 1 ML (VIAL/SYRINGE) IVP PRN (07:15)
[2020-03-09] MEDS: DexMEDEtomidine 250 ML DRIP 250 ML IV SCH ×2 (07:40→16:54)
[2020-03-09] MEDS: PANTOPRAZOLE 40 MG (PROTONIX) VIAL IV SCH (08:33)
[2020-03-09] MEDS: D5 NS 1000 ML IV SOLUTION 1,000 ML IV SCH ×3 (08:33→22:03)
[2020-03-09] MEDS: NICOTINE 21 MG (NICODERM) PATCH TD SCH (08:33)
[2020-03-09] MEDS: ENOXAPARIN 40 MG/0.4 ML (LOVENOX) SYR SC SCH (08:33)
[2020-03-09] MEDS ORDERED: SODIUM PHOSPHATE INJ 30 MM in NS (IVPB) 250 ML IV ONE (09:00)
[2020-03-09] MEDS: NICOTINE PATCH REMOVAL TP SCH (09:30)
--- NOTE | 2020-03-09 10:10 | Progress Note - Hospitalist ---
Subjective HPI/CC On Admission Date Seen by Provider: March 09, 2020 Time Seen by Provider: 09:45 CC: ETOH withdrawal with new onset seizure placed on Keppra and ICU for detox protocol HPI: This is a severe alcoholic who presents to the ER with new onset seizure since alcohol cessation 2 days prior in prep for alcohol rehab 04/03/2020. Currently patient is very anxious and has severe tremors and protocol followed. Patient has had no further seizure activity. Subjective/Events-last exam Patient is sleeping soundly. He has been able to be redirected with his agitation overnight but is still on Precedex drip. Labs are reviewed. Objective Exam Vital Signs Vital Signs Date Time Temp Pulse Resp B/P (MAP) Pulse Ox O2 Delivery O2 Flow Rate FiO2 03/09/20 08:00 Room Air 03/09/20 07:40 64 136/106 03/09/20 07:27 36.7 16 03/09/20 06:00 97 Capillary Refill : Less Than 3 Seconds General Appearance: No Apparent Distress, WD/WN, Other (Plethoric) HEENT: Normal ENT Inspection Respiratory: Lungs Clear, Normal Breath Sounds, No Accessory Muscle Use, No Respiratory Distress Cardiovascular: Regular Rate, Rhythm, No Edema, No Gallop, No Murmur, Normal Peripheral Pulses Gastrointestinal: Normal Bowel Sounds, Soft Extremity: Normal Capillary Refill, Normal Inspection Results/Procedures Lab Laboratory Tests 03/09/20 02:31 Patient resulted labs reviewed. Assessment/Plan Assessment and Plan Assess & Plan/Chief Complaint Acute alcohol withdrawal with agitation on Precedex History of seizures secondary to withdrawal Elevated liver functions secondary to alcoholic hepatitis Hypertension mild most likely secondary to withdrawal Plan to continue supportive care replace electrolytes as needed, patient has a place for inpatient rehabilitation starting March 31 Clinical Quality Measures DVT/VTE Risk/Contraindication: Risk Factor Score Per Nursin RFS Level Per Nursing on Admit: 4+=Very High LIGIA FERGUSON MD March 09, 2020 10:10
[2020-03-10] VITALS (10 sets, daily range): BP systolic 129–154; BP diastolic 90–125
[2020-03-10] MEDS: DexMEDEtomidine 250 ML DRIP 250 ML IV SCH (01:39)
[2020-03-10 03:50] LABS: BASOPHILS % (AUTO) 0 % (0-10); EOSINOPHILS # (AUTO) 0.1 10^3/uL (0.0-0.3); EOSINOPHILS % (AUTO) 1 % (0-10); HEMATOCRIT 38 % (40-54); HEMOGLOBIN 12.6 G/DL (13.3-17.7); LYMPHOCYTES # (AUTO) 0.9 X 10^3 (1.0-4.0); LYMPHOCYTES % (AUTO) 19 % (12-44); MEAN CORPUSCULAR HEMOGLOBIN 32 PG (25-34); MEAN CORPUSCULAR HGB CONC 33 G/DL (32-36); MEAN CORPUSCULAR VOLUME 95 FL (80-99); MEAN PLATELET VOLUME 11.9 FL (7.4-10.4); MONOCYTES # (AUTO) 0.8 X 10^3 (0.0-1.0); MONOCYTES % (AUTO) 16 % (0-12); NEUTROPHILS % (AUTO) 63 % (42-75); PLATELET COUNT 124 10^3/uL (130-400); RED CELL DISTRIBUTION WIDTH 12.4 % (10.0-14.5); WHITE BLOOD COUNT 4.7 10^3/uL (4.3-11.0)
[2020-03-10 03:59] LABS: CHLORIDE 101 MMOL/L (98-107); POTASSIUM 3.5 MMOL/L (3.6-5.0); SODIUM 133 MMOL/L (135-145)
[2020-03-10 04:00] LABS: CALCIUM 8.4 MG/DL (8.5-10.1)
[2020-03-10 04:01] LABS: GLUCOSE 88 MG/DL (70-105)
[2020-03-10 04:02] LABS: CARBON DIOXIDE 22 MMOL/L (21-32)
[2020-03-10 04:05] LABS: CREATININE SERUM 0.62 MG/DL (0.60-1.30); GFR ESTIMATED > 60; PHOSPHORUS 3.6 MG/DL (2.3-4.7)
[2020-03-10 04:06] LABS: BUN/CREATININE RATIO 5
[2020-03-10] MEDS: MAGNESIUM 1 GM/100 ML IVPB 100 ML IV SCH (04:08)
[2020-03-10] MEDS: KCL 20 MEQ TAB (K-DUR) PO SCH (04:08)
[2020-03-10] MEDS: POTASSIUM CL 10MEQ/50ML IVPB 50 ML IV SCH (04:08)
[2020-03-10] MEDS ORDERED: KCL 20 MEQ TAB (K-DUR) PO ONE (04:15)
[2020-03-10] MEDS: D5 NS 1000 ML IV SOLUTION 1,000 ML IV SCH (04:22)
[2020-03-10] MEDS ORDERED: ACETAMINOPHEN 500 MG TAB (TYLENOL) PO PRN (05:15)
[2020-03-10] MEDS ORDERED: SUCRALFATE 1 GM (CARAFATE) TAB PO PRN (05:15)
--- NOTE | 2020-03-10 05:20 | Pulmonary Progress Note ---
Subjective Time Seen by a Provider: 05:20 Subjective/Events-last exam No complications noted. Sepsis Event Evaluation Height, Weight, BMI Height: 5'8.00" Weight: 150lbs. 4.0oz. 68.446835au; 21.77 BMI Method: Exam Exam Vital Signs Date Time Temp Pulse Resp B/P (MAP) Pulse Ox O2 Delivery O2 Flow Rate FiO2 03/10/20 04:00 69 16 154/106 (122) 96 Room Air 03/10/20 03:30 95 Room Air 03/10/20 03:30 36.7 Room Air 03/10/20 03:00 80 20 143/95 (111) 95 Room Air 03/10/20 02:00 71 17 129/97 (108) 92 Room Air 03/10/20 01:39 82 152/109 03/10/20 01:00 63 20 152/109 (123) 92 Room Air 03/10/20 01:00 65 03/10/20 00:00 65 15 138/98 (111) 97 Room Air 03/09/20 23:10 36.2 Room Air 03/09/20 23:10 94 Room Air 03/09/20 23:00 65 15 153/108 (123) 94 Room Air 03/09/20 22:00 61 18 147/106 (120) 98 Room Air 03/09/20 21:00 57 14 150/100 (117) 98 Room Air 03/09/20 20:00 56 15 150/111 (124) 95 Room Air 03/09/20 19:15 96 Room Air 03/09/20 19:00 55 03/09/20 19:00 36.5 57 16 139/96 (110) 96 Room Air 03/09/20 18:00 68 10 96 03/09/20 17:00 64 15 96 03/09/20 16:54 58 146/109 03/09/20 16:30 Room Air 03/09/20 16:00 35.8 62 14 146/109 (121) 95 Room Air 03/09/20 16:00 58 12 100 03/09/20 15:54 03/09/20 15:00 59 8 146/109 (121) 03/09/20 15:00 59 8 03/09/20 14:00 79 13 97 03/09/20 13:00 64 13 97 Room Air 03/09/20 12:52 61 5/10/20 12:35 Room Air 03/09/20 12:00 77 7 97 Room Air 03/09/20 11:00 97 Room Air 03/09/20 10:00 96 Room Air 03/09/20 09:00 95 Room Air 03/09/20 08:00 95 Room Air 03/09/20 08:00 Room Air 03/09/20 07:40 64 136/106 03/09/20 07:27 36.7 16 136/106 (116) Room Air 03/09/20 07:27 36.7 03/09/20 07:00 136/106 (116) 95 Room Air 03/09/20 06:00 97 Room Air I & O 03/10/20 07:00 Intake Total 3955 ml Output Total 3400 ml Balance 555 ml Height & Weight Height: 5'8.00" Weight: 150lbs. 4.0oz. 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
--- NOTE | 2020-03-10 06:41 | Diagnostic Imaging Report ---
Indication: Seizures. Comparison: 03/06/2020. Findings: Single view of the chest demonstrates clear lungs bilaterally. The heart is normal. There is no pneumothorax. Osseous structures normal. Impression: Negative chest. Dictated by: Dictated on workstation # [id number]
[2020-03-10] MEDS ORDERED: ADVAIR HFA 115/21 MCG INHALER 8 GM IH SCH (08:00)
[2020-03-10] MEDS: NICOTINE 21 MG (NICODERM) PATCH TD SCH (08:25)
[2020-03-10] MEDS: ENOXAPARIN 40 MG/0.4 ML (LOVENOX) SYR SC SCH (08:25)
[2020-03-10] MEDS: NICOTINE PATCH REMOVAL TP SCH (08:26)
[2020-03-10] MEDS: PANTOPRAZOLE 40 MG (PROTONIX) VIAL IV SCH (08:26)
[2020-03-10] MEDS ORDERED: TAMSULOSIN 0.4 MG (FLOMAX) CAP PO SCH (09:00)
[2020-03-10] MEDS ORDERED: lisINopril 20 MG (PRINIVIL) TABLET PO SCH (09:00)
[2020-03-10] MEDS ORDERED: FLUoxetine HCL 20 MG (PROzac) CAP PO SCH (09:00)
[2020-03-10] MEDS ORDERED: LORATADINE (CLARITIN) 10 MG TAB PO SCH (09:00)
[2020-03-10] MEDS ORDERED: NON-FORMULARY MEDICATION 1 EA EA (Fluoxetine HCl (Prozac) 40 MG) PO SCH (09:00)
[2020-03-10] MEDS ORDERED: MELOXICAM 7.5 MG (MOBIC) TABLET PO SCH (09:00)
[2020-03-10] MEDS ORDERED: amLODIPine 5 MG (NORVASC) TAB PO SCH (09:00)
--- NOTE | 2020-03-10 11:00 | NUR ---
RECEIVED REPORT FROM TOOL MACHINE SET UP OPERATOR, HANNAH. SHE REPORTS PT IS ALERT AND ORIENTED X 4 AT THIS TIME AND DOES NOT REQUIRE A SITTER. PT IS NOW IN ROOM, LAYING IN BED, WITH BED ALARM ON. PT REMINDED TO USE CALL LIGHT WHEN HE HAS TO USE BATHROOM. TOOL MACHINE SET UP OPERATOR ALSO TOLD THIS NURSE WATER TAXI DRIVER THAT PT HAD VISUAL AND AUDITORY HALLUCINATIONS TO ATIVAN LAST NIGHT.
--- NOTE | 2020-03-10 12:00 | NUR ---
RECEIVED ORDERS TO D/C TELESITTER AND PERSONAL SITTER FROM DR SALMON. TELESITTER NOTIFIED.
--- NOTE | 2020-03-10 12:04 | NUR ---
CM/SS follow up. The patient was moved to the 4th floor. He appeared to be in good spirits this a.m. The patient states that he is feeling well and is ready to be discharged from the hospital today. He is unsure "why he wouldn't be". CM/SS discussed the physicians suggestion of trying to get him into the [facility] facility sooner. The patient stated that he called [facility] and reported he wanted to see his for a couple of days before going. He did not want to go from the hospital straight there. CM/SS went over what was discussed on Tuesday. CM/SS asked if the patient had a written out plan or a set plan. He stated "just spend time with family and kids". He reports he does not have any urges to drink at this time. Will continue to follow. Addendum: 03/10/20 at 1555 by [facility] The patients Kylah contacted this ss to be updated on the plan. CM/SS updated her about the patients choice to not go straight to facility. However, discussed talking to the patient about it again tomorrow. She verbalized understanding.
--- NOTE | 2020-03-10 15:46 | Progress Note ---
Subjective Subjective/Events-last exam Patient is awake and alert this AM. Asking to go home. Tolerating PO diet. Review of Systems Pulmonary: No Dyspnea, No Cough Cardiovascular: No: Chest Pain, Palpitations Gastrointestinal: Constipation; No: Nausea, Diarrhea Neurological: Weakness; No: Confusion Objective Exam Last Set of Vital Signs Vital Signs Date Time Temp Pulse Resp B/P (MAP) Pulse Ox O2 Delivery O2 Flow Rate FiO2 03/10/20 12:27 36.5 70 18 152/102 (119) 96 Room Air Capillary Refill : Less Than 3 Seconds I&O Intake and Output 03/10/20 00:00 Intake Total 4530 ml Output Total 3750 ml Balance 780 ml Intake Oral 1770 ml IV Total 2760 ml Output Urine Total 3750 ml # Voids 2 General: Alert, Oriented X3, Cooperative, No Acute Distress HEENT: Mucous Memb Moist/[place] Lungs: Clear to Auscultation, Normal Air Movement Heart: Regular Rate, No Murmurs Abdomen: Normal Bowel Sounds, Soft, No Tenderness, No Masses Extremities: No Edema, No Tenderness/Swelling Skin: No Rashes, No Breakdown Neuro: Normal Speech, Sensation Intact, Cranial Nerves 3-12 NL Results/Procedures Lab Laboratory Tests 03/09/20 18:03: Glucometer 142H 03/09/20 23:17: Glucometer 168H 03/10/20 03:05: White Blood Count 4.7, Red Blood Count 3.98L, Hemoglobin 12.6L, Hematocrit 38L, Mean Corpuscular Volume 95, Mean Corpuscular Hemoglobin 32, Mean Corpuscular Hemoglobin Concent 33, Red Cell Distribution Width 12.4, Platelet Count 124L, Mean Platelet Volume 11.9H, Neutrophils (%) (Auto) 63, Lymphocytes (%) (Auto) 19, Monocytes (%) (Auto) 16H, Eosinophils (%) (Auto) 1, Basophils (%) (Auto) 0, Neutrophils # (Auto) 3.0, Lymphocytes # (Auto) 0.9L, Monocytes # (Auto) 0.8, Eosinophils # (Auto) 0.1, Basophils # (Auto) 0.0, Sodium Level 133L, Potassium Level 3.5L, Chloride Level 101, Carbon Dioxide Level 22, Anion Gap 10, Blood Urea Nitrogen 3L, Creatinine 0.62, Estimat Glomerular Filtration Rate > 60, BUN/Creatinine Ratio 5, Glucose Level 88, Calcium Level 8.4L, Phosphorus Level 3.6, Magnesium Level 2.0 Microbiology 03/06/20 MRSA Screen - Final, Complete MRSA not isolated Assessment/Plan Assessment/Plan (1) Alcohol withdrawal seizure Status: Acute Assessment & Plan: 03/10: Currently on Keppra, no reoccurrence of Sz, Sz precautions, no Ativan in the last 24 hrs, titrating down on Precedex Qualifiers: Qualified Codes: F10.231 - Alcohol dependence with withdrawal delirium (2) Alcohol withdrawal Status: Acute Assessment & Plan: 03/10: Patient has bed at acute rehab on March 31, Trying to see if that bed will be available prior so that he can d/c from hosp to rehab Qualifiers: Qualified Codes: F10.231 - Alcohol dependence with withdrawal delirium (3) Elevated LFTs Status: Acute Assessment & Plan: 03/10: Acute hepatitis panel and HIV NR (4) HTN (hypertension) Status: Chronic Assessment & Plan: 03/10: Likely due to EtOH withdraw, however given how elevated it is will go ahead and start Lisinopril and monitor for improvement Qualifiers: Qualified Codes: I10 - Essential (primary) hypertension Clinical Quality Measures DVT/VTE Risk/Contraindication: Risk Factor Score Per Nursin RFS Level Per Nursing on Admit: 4+=Very High CHANO SALMON MD March 10, 2020 15:46
--- NOTE | 2020-03-10 16:40 | NUR ---
AT 1600 TODAY PT WALKED OUT OF HIS ROOM IN HALLWAY LOOKING FOR DR SALMON B/C HE WAS GOING HOME. THIS RN EXPLAINED THAT DR SALMON WAS ATTEMPTING TO GET HIM INTO REHAB EARLY AND GO DIRECTLY [facility] REHAB [facility] [place]. PT TOLD THIS NURSE RN OSTOMY HE WAS GOING HOME AND HIS WOULD PICK HIM UP. THIS RN GOT A HOLD OF DR SALMON AND LET HER KNOW WHAT HE WAS PLANNING ON DOING. THIS RN ALSO NOTIFIED TRANSPORTATION MAINTENANCE SPECIALIST, PATRICIA, OF THE SITUATION WELL. PATRICIA TOLD THIS RN THAT SINCE PATIENT IS FULLY ALERT AND ORIENTED WE CANNOT KEEP HIM IN HOSPITAL AGAINST HIS WILL. PT WAS NOTIFIED BY THIS NURSE THAT HE COULD SIGN AGAINST MEDICAL ADVICE FORM AND LEAVE. PT TOLD THIS RN OSTOMY THAT HE WOULD SIGN AND LEAVE. DR SALMON CALLED RN AND TOLD HER THAT SHE HAD GOTTEN HIM AN APPOINTMENT TOMORROW, 03/11/20 AT 0900, WITH J[facility]IE AT [facility]. PT GIVEN CARD WITH THIS INFORMATION. THIS RN ALSO READ AMA FORM TO PT AND HE REPORTED HE UNDERSTOOD WHAT THE FORM SAID AND SIGNED FORM, WITNESSED BY THE RN. IV ON RT HAND WAS PULLED AND GAUZE TAPED TO IV SITE. PT LEFT ROOM AND EXITED MED SURG UNIT.
[2020-03-10] MEDS ORDERED: NON-FORMULARY MEDICATION 1 EA EA (Olanzapine 10 MG) PO SCH (21:00)
[2020-03-10] MEDS ORDERED: OLANZapine 5 MG (ZyPREXA) TAB PO SCH (21:00)
== END 2020-03-10 16:40 | disposition left against medical advice (07) | DRG 894 ==
LOC: EDUNIT# 17:59 → ER 18:01 → ICU 18:45 → 4TH 03-10 11:07
PROVIDERS: ADMIT Internal Medicine; ATTEND Internal Medicine
DX: F10.231 Alcohol dependence with withdrawal delirium (principal); G40.509 Epileptic seizures related to external causes, not intractable, without status epilepticus; K70.10 Alcoholic hepatitis without ascites; E87.6 Hypokalemia; R41.3 Other amnesia; F17.210 Nicotine dependence, cigarettes, uncomplicated; J44.9 Chronic obstructive pulmonary disease, unspecified; I10 Essential (primary) hypertension; E78.00 Pure hypercholesterolemia, unspecified; R29.6 Repeated falls; K21.9 Gastro-esophageal reflux disease without esophagitis; F41.9 Anxiety disorder, unspecified; F31.9 Bipolar disorder, unspecified; N42.9 Disorder of prostate, unspecified; E83.39 Other disorders of phosphorus metabolism
CPT/HCPCS: 36415; 71045; 80048; 80053; 80074; 80306; 80320; 80329; 81000; 82140; 82150; 82550; 82553; 82962; 83690; 83735; 83874; 84100; 84439; 84443; 85025; 85610; 85730; 86703; 87081; 93005; 93041; 94640; 96361; 96365; 96375

== ENCOUNTER 2020-04-08 20:13 | Emergency (ER) | payer SELFPAY ==
[~2020-04-08] VITALS: Ht 179 cm; Wt 66.0 kg
[~2020-04-08 20:13] MED LIST changes: +ACET-2267 PO; +BUDE10.2 IH; +CETI10TA21 PO; +OLAN10TA19 PO; +PANT40TA2 PO
[2020-04-08] MEDS ORDERED: LACTATED RINGERS 1,000 ML IV ONE (20:21)
--- NOTE | 2020-04-08 20:31 | ED General ---
General Chief Complaint: General Problems/Pain Stated Complaint: WEAK,LIGHTHEADED Source of Information: Patient (PT IS LIMITED HISTORIAN ABOUT PMH--POOR MEMORY/NORMAL FOR PT), Old Records History of Present Illness Date Seen by Provider: Apr 08, 2020 Time Seen by Provider: 20:13 Initial Comments PT ARRIVES VIA EMS FROM HOME PT STATES HE HAS PASSED OUT TWICE THIS EVENING--APPROXIMATELY AN HOUR [facility] EMS AT SCENE AFTER FIRST EPISODE, THEN PT REFUSED TRANSPORT EMS CALLED BACK AFTER THE SECOND EPISODE AND BROUGHT HERE PT STATES BOTH TIMES HE WAS WALKING IN THE HOUSE, AND FELT LIGHTHEADED BEFORE HE PASSED OUT, AND FEELS WEAK ALL OVER DOES REPORT THAT HE BUMPED HIS HEAD--NOT SURE WHAT HE HIT HIS HEAD ON DENIES ANY HEADACHE/HEAD PAIN DENIES ANY NECK OR BACK PAIN OR ANY EXTREMITY PAIN EPISODES WERE WITNESSED BY ( NOT PRESENT IN ER ) --PT STATES HE "WASN'T OUT FOR VERY LONG" NO SEIZURE ACTIVITY WAS REPORTED, AND NO INCONTINENCE, AND NO POST ICTAL SYMPTOMS PT STATES THAT HE WAS HERE 03/06/20 FOR NEW ONSET ALCOHOL WITHDRAWL SEIZURE AND ADMITTED. PLAN WAS TO HAVE PT DIRECTLY ADMITTED TO AN INPATIENT ALCOHOL REHAB, BUT PT SIGNED OUT AMA AND PT IMMEDIATELY WENT BACK TO DRINKING PT ALSO WAS AT [facility] 03/23/20--WANTING "ALCOHOL DETOX", BUT THEY DO NOT HAVE DETOX UNIT-PT SENT HOME, ALSO DX WITH HYPONATREMIA. NO RX'S GIVEN. PT HAD REPORTED AT THAT TIME THAT HE WAS SUPPOSED TO GO TO ALCOHOL REHAB IN [place] 04/03/20 ( WHICH HE DID NOT DO ) WAS IN [facility] 03/2019 FOR ALCOHOLISM, BUT DID NOT STAY MORE THAN A DAY, AND NEVER SOUGHT ANY OUTPATIENT TREATMENT AND IMMEDIATELY RESUMED [id number] PT DRINKS AT LEAST A 12 PACK OF 18 OZ BEERS/DAY. STATES HE "DIDN'T DRINK MUCH" YESTERDAY, AND WAS IN BED MOST OF THE DAY YESTERDAY DUE TO NAUSEA/VOMITING PT STATES HE ONLY HAD 1/2 OF ONE BEER TODAY AT NOON PT ALSO STATES HE HAS HAD EPIGASTRIC ABDOMINAL PAIN FOR THE LAST FEW DAYS, AND HAS HAD CHEST PAIN OFF AND ON TODAY--NO CHEST PAIN NOW HAS NOT FOLLOWED UP WITH HIS PCP OR ANYONE SINCE THESE VISITS STATES HE IS "GETTING READY TO GET INTO [facility] THE END OF APRIL" NO REPORTED FEVER, COUGH/URI SYMPTOMS NO SHORTNESS OF BREATH NO VISION CHANGES NO PARESTHESIAS OR MOTOR DEFICITS NO PALPITATIONS PCP: DR. Tracy EDWARDS AT [facility]--"HASN'T SEEN IN QUITE AWHILE" PER PT ALSO GOES TO [facility], BUT STATES HE "HASN'T BEEN THERE FOR AWHILE EITHER" Allergies and Home Medications Allergies Uncoded Allergies: yellow jacket (Allergy, Severe, Anaphylaxis, 04/10/19) has epi pen guinea wasp (Adverse Reaction, Severe, Anaphylaxis, 04/10/19) uses epi pen Home Medications Acetaminophen 500 Mg Tablet, 1,000 MG PO Q8H PRN for PAIN-MILD (1-4), (Reported) Amlodipine Besylate 5 Mg Tablet, 5 MG PO DAILY, (Reported) Atorvastatin Calcium 20 Mg Tablet, 20 MG PO HS, (Reported) Budesonide/Formoterol Fumarate 10.2 Gm Hfa.aer.ad, 2 PUFF IH BID PRN for SHORTNESS OF BREATH, (Reported) Cetirizine HCl 10 Mg Tablet, 10 MG PO DAILY PRN for ALLERGY SYMPTOMS, (Reported) Fluoxetine HCl 40 Mg Capsule, 40 MG PO DAILY, (Reported) Lisinopril 20 Mg Tablet, 20 MG PO DAILY, (Reported) Meloxicam 15 Mg Tablet, 15 MG PO DAILY, (Reported) Olanzapine 10 Mg Tablet, 10 MG PO HS, (Reported) Pantoprazole Sodium 40 Mg Tablet.dr, 40 MG PO DAILY, (Reported) Sucralfate 1 Gm Tablet, 1 GM PO QIDACHS PRN for GI UPSET, (Reported) Tamsulosin HCl 0.4 Mg Cap, 0.4 MG PO DAILY, (Reported) Patient Home Medication List Home Medication List Reviewed: Yes Review of Systems Review of Systems Constitutional: see HPI; No chills, No diaphoresis; dizziness; No fever; malaise, weakness EENTM: no symptoms reported; No blurred vision, No double vision, No vision loss, No nose congestion, No throat pain Respiratory: no symptoms reported; No cough, No short of breath Cardiovascular: see HPI, chest pain; No edema, No palpitations; syncope Gastrointestinal: see HPI, abdominal pain, loss of appetite, nausea, vomiting Genitourinary: no symptoms reported Musculoskeletal: no symptoms reported Skin: no symptoms reported Psychiatric/Neurological: See HPI (SYNCOPE); Denies Headache, Denies Numbness, Denies Paresthesia, Denies Tingling, Denies Tremors, Denies Weakness Hematologic/Lymphatic: No Symptoms Reported Immunological/Allergic: no symptoms reported Past Ubdfbdg-[id number]-Mzvnzv Hx Patient Social History Alcohol Use: Regular Use (12 PACK OF 18 OZ BEERS/DAY) Alcohol Beverage of Choice: Beer Recreational Drug Use: Yes (THC AGE 18) Drug of Choice: THC AGE 18 Smoking Status: Current Everyday Smoker (1-1 1/2 PPD) Type Used: Cigarettes 2nd Hand Smoke Exposure: No Recent Hopitalizations: No Seasonal Allergies Seasonal Allergies: No Past Medical History Surgeries: Yes (LEFT INGUINAL HERNIA REPAIRL RIGHT WRIST FX/ORIF) Abdominal, Orthopedic Respiratory: Yes COPD Cardiac: Yes High Cholesterol, Hypertension Neurological: Yes (MEMORY IMPAIRMENT;ETOH WITHDRAWL SEIZURE 03/06/20;DT'S/HALLUCINATIONS ) Seizure Disorder Genitourinary: Yes Prostate Problems Gastrointestinal: Yes (LEFT INGUINAL HERNIA REPAIR;ELEVATED LFT'S 03/06/20) Abdominal Hernia, Gastroesophageal Reflux Musculoskeletal: Yes (RIGHT WRIST FX/ORIF) Fractures Endocrine: No HEENT: No Cancer: No Psychosocial: Yes (ALCOHOLISM;DT'S WITH HALLUCINATIONS 03/2019;WITHDRAWL SEIZURE 03/06/2020) Anxiety, Bipolar, Depression Integumentary: No Blood Disorders: No Family Medical History Diabetes mellitus 19 FATHER No Pertinent Family Hx Physical Exam Vital Signs Vital Signs - First Documented 04/08/20 20:18 Temp 36.8 Pulse 108 Resp 20 B/P (MAP) 119/82 (94) Pulse Ox 96 O2 Delivery Room Air Capillary Refill : Height, Weight, BMI Height: 5'8.00" Weight: 150lbs. 4.0oz. [id number]; 21.77 BMI Method: General Appearance: No Apparent Distress, WD/WN, Other (LAYING OUTSTRETCHED, DOES NOT APPEAR POST ICTAL OR TO BE IN ANY DISCOMFORT OR DISTRESS. NO INCONTINENCE. REEKS OF CIGARETTES AND ALCOHOL) HEENT: PERRL/EOMI, TMs Normal, Normal ENT Inspection, Pharynx Normal, Moist Mucous Membranes Neck: Full Range of Motion, Normal Inspection, Non Tender, Supple Respiratory: Chest Non Tender, Normal Breath Sounds, No Accessory Muscle Use, No Respiratory Distress Cardiovascular: Regular Rate, Rhythm, No Edema, No JVD, No Murmur, Normal Peripheral Pulses Gastrointestinal: Normal Bowel Sounds, No Organomegaly, No Pulsatile Mass, Soft, Tenderness (MILD EPIGASTRIC TENDERNESS) Back: Normal Inspection, No CVA Tenderness, No Vertebral Tenderness Extremity: Normal Capillary Refill, Normal Inspection, Normal Range of Motion, Non Tender, No Calf Tenderness, No Pedal Edema Neurologic/Psychiatric: Alert, Oriented x3 (BUT LIMITED MEMORY, WHICH IS NORMAL FOR PT), No Motor/Sensory Deficits, Normal Mood/Affect, 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 Norm as Tested Skin: Normal Color, Warm/Dry; No Ecchymosis Progress/Results/Core Measures Suspected Sepsis SIRS Temperature: Pulse: Respiratory Rate: Laboratory Tests 04/08/20 20:20: White Blood Count 9.5 Blood Pressure / Mean: Laboratory Tests 04/08/20 20:20: Creatinine 0.64, INR Comment 1.0, Platelet Count 163, Total Bilirubin 0.8 Results/Orders Lab Results Laboratory Tests Test 04/08/20 20:20 04/08/20 20:50 04/08/20 21:45 04/08/20 23:13 Range/Units White Blood Count 9.5 4.3-11.0 10^3/uL Red Blood Count 4.16 L 4.35-5.85 10^6/uL Hemoglobin 13.7 13.3-17.7 G/DL Hematocrit 38 L 40-54 % Mean Corpuscular Volume 90 80-99 FL Mean Corpuscular Hemoglobin 33 25-34 PG Mean Corpuscular Hemoglobin Concent 37 H 32-36 G/DL Red Cell Distribution Width 13.0 10.0-14.5 % Platelet Count 163 130-400 10^3/uL Mean Platelet Volume 9.5 7.4-10.4 FL Neutrophils (%) (Auto) 84 H 42-75 % Lymphocytes (%) (Auto) 12 12-44 % Monocytes (%) (Auto) 4 0-12 % Eosinophils (%) (Auto) 0 0-10 % Basophils (%) (Auto) 0 0-10 % Neutrophils # (Auto) 8.0 H 1.8-7.8 X 10^3 Lymphocytes # (Auto) 1.1 1.0-4.0 X 10^3 Monocytes # (Auto) 0.4 0.0-1.0 X 10^3 Eosinophils # (Auto) 0.0 0.0-0.3 10^3/uL Basophils # (Auto) 0.0 0.0-0.1 10^3/uL Prothrombin Time 13.2 12.2-14.7 SEC INR Comment 1.0 0.8-1.4 Activated Partial Thromboplast Time 26 24-35 SEC Sodium Level 130 L 135-145 MMOL/L Potassium Level 3.6 3.6-5.0 MMOL/L Chloride Level 92 L 98-107 MMOL/L Carbon Dioxide Level 18 L 21-32 MMOL/L Anion Gap 20 H 5-14 MMOL/L Blood Urea Nitrogen 4 L 7-18 MG/DL Creatinine 0.64 0.60-1.30 MG/DL Estimat Glomerular Filtration Rate > 60 BUN/Creatinine Ratio 6 Glucose Level 118 H 70-105 MG/DL Calcium Level 8.8 8.5-10.1 MG/DL Corrected Calcium 8.8 8.5-10.1 MG/DL Magnesium Level 1.6 1.6-2.4 MG/DL Total Bilirubin 0.8 0.1-1.0 MG/DL Aspartate Amino Transf (AST/SGOT) 34 5-34 U/L Alanine Aminotransferase (ALT/SGPT) 28 0-55 U/L Alkaline Phosphatase 85 40-136 U/L Total Creatine Kinase 108 30-200 U/L Creatine Kinase MB 4.4 <6.6 NG/ML Myoglobin 55.6 10.0-92.0 NG/ML Troponin I < 0.028 < 0.028 <0.028 NG/ML Total Protein 6.5 6.4-8.2 GM/DL Albumin 4.0 3.2-4.5 GM/DL Amylase Level 30 25-125 U/L Lipase 12 8-78 U/L TSH [place] Testing 2.38 0.35-4.94 UIU/ML Salicylates Level < 5.0 L 5.0-20.0 MG/DL Acetaminophen Level < 10 L 10-30 UG/ML Serum Alcohol 130 H <10 MG/DL Glucometer 125 H 70-110 MG/DL Urine Color YELLOW Urine Clarity CLEAR Urine pH 5.5 5-9 Urine Specific [place] >=1.030 1.016-1.022 Urine Protein TRACE H NEGATIVE Urine Glucose (UA) NEGATIVE NEGATIVE Urine Ketones 1+ H NEGATIVE Urine Nitrite NEGATIVE NEGATIVE Urine Bilirubin NEGATIVE NEGATIVE Urine Urobilinogen 1.0 < = 1.0 MG/DL Urine Leukocyte Esterase NEGATIVE NEGATIVE Urine RBC (Auto) NEGATIVE NEGATIVE Urine RBC NONE /HPF Urine WBC NONE /HPF Urine Squamous Epithelial Cells RARE /HPF Urine Crystals NONE /LPF Urine Bacteria TRACE /HPF Urine Casts PRESENT /LPF Urine Hyaline Casts 0-2 H /LPF Urine Mucus SMALL H /LPF Urine Culture Indicated NO Urine Opiates Screen NEGATIVE NEGATIVE Urine Oxycodone Screen NEGATIVE NEGATIVE Urine Methadone Screen NEGATIVE NEGATIVE Urine Propoxyphene Screen NEGATIVE NEGATIVE Urine Barbiturates Screen NEGATIVE NEGATIVE Ur Tricyclic Antidepressants Screen NEGATIVE NEGATIVE Urine Phencyclidine Screen NEGATIVE NEGATIVE Urine Amphetamines Screen NEGATIVE NEGATIVE Urine Methamphetamines Screen NEGATIVE NEGATIVE Urine Benzodiazepines Screen NEGATIVE NEGATIVE Urine Cocaine Screen NEGATIVE NEGATIVE Urine Cannabinoids Screen NEGATIVE NEGATIVE My Orders Orders - ROSA,NYDIA K DO Accucheck Stat ONCE (04/08/20 20:21) Ed Iv/Invasive Line Start (04/08/20 20:21) Ekg Tracing (04/08/20 20:21) Monitor-Rhythm Ecg Trace Only (04/08/20 20:21) Ct Head Wo (04/08/20 20:21) Chest 1 View, Ap/Pa Only (04/08/20 20:21) Acetaminophen (04/08/20 20:21) Alcohol (04/08/20 20:21) Amylase (04/08/20 20:21) Cbc With Automated Diff (04/08/20 20:21) Comprehensive Metabolic Panel (04/08/20 20:21) Creatine Kinase (04/08/20 20:21) Creatine Kinase Mb (04/08/20 20:21) Drug Screen Stat (Urine) (04/08/20 20:21) Magnesium (04/08/20 20:21) Protime With Inr (04/08/20 20:21) Partial Thromboplastin Time (04/08/20 20:21) Salicylate (04/08/20 20:21) Thyroid Analyzer (04/08/20 20:21) Ua Culture If Indicated (04/08/20 20:21) Myoglobin Serum (04/08/20 20:21) Troponin I (04/08/20 20:21) Ed Iv/Invasive Line Start (04/08/20 20:21) Lactated Ringers (Lr 1000 Ml Iv Solution (04/08/20 20:21) Lipase (04/08/20 20:21) Ondansetron Injection (Zofran Injectio (04/08/20 20:45) Pantoprazole Injection (Protonix Injecti (04/08/20 20:45) Levetiracetam Injection (Keppra Injectio (04/08/20 20:45) Ed Iv/Invasive Line Start (04/08/20 21:07) Ns Iv 1000 Ml (Sodium Chloride 0.9%) (04/08/20 21:07) Ekg Tracing (04/08/20 22:58) Troponin I (04/08/20 22:58) Medications Given in ED Current Medications Medications Dose Ordered Sig/Misa Route Start Time Stop Time Status Last Admin Dose Admin Lactated Ringer's 1,000 ml @ 0 mls/hr Q0M ONCE IV 04/08/20 20:21 04/08/20 20:24 DC 04/08/20 20:46 0 MLS/HR Levetiracetam 1000 mg/Sodium Chloride 110 ml @ 440 mls/hr ONCE ONCE IV 04/08/20 20:45 04/08/20 20:59 DC 04/08/20 20:47 440 MLS/HR Ondansetron HCl 8 mg ONCE ONCE IVP 04/08/20 20:45 04/08/20 20:46 DC 04/08/20 20:45 8 MG Pantoprazole 40 mg ONCE ONCE IV 04/08/20 20:45 04/08/20 20:46 DC 04/08/20 20:46 40 MG Vital Signs/I&O 04/08/20 20:18 Temp 36.8 Pulse 108 Resp 20 B/P (MAP) 119/82 (94) Pulse Ox 96 O2 Delivery Room Air Capillary Refill : Progress Note : Progress Note NO COMPLAINTS OF CHEST PAIN AT ANY TIME GIVEN IV FLUIDS, ZOFRAN AND PROTONIX--STATES HIS STOMACH IS FEELING MUCH BETTER SLEPT/RESTED QUIETLY FOR REMAINDER OF ER STAY 3 HOUR REPEAT EKG AND TROPONIN DONE--TROPONIN NEGATIVE AND EKG UNCHANGED NO COMPLAINTS OF ANY KIND DURING REMAINDER OF ER STAY ECG Initial ECG Impression Date: Apr 08, 2020 Initial ECG Impression Time: 20:20 Initial ECG Rate: 103 Initial ECG Rhythm: S.Tach Initial ECG Comparisson: Unchanged EKG : EKG Time: 23:07 Rate: 94 Intervals: Normal ECG Comparisson: Unchanged Diagnostic Imaging Comments CXR--NO ACUTE PROCESS, PENDING RADIOLOGIST REVIEW CT HEAD--NO ACUTE PROCESS, PER RADIOLOGIST REPORT AT 2047 Reviewed: Reviewed by Me Departure Impression Primary Impression: REPORTED SYNCOPAL EPISODES Additional Impressions: Alcohol intoxication in active alcoholic Hyponatremia Epigastric abdominal pain SUSPECTED ALCOHOLIC GASTRITIS CHES PAIN RESOLVED Disposition: 01 HOME, SELF-CARE Condition: Improved Departure-Patient Inst. Referrals: LISA EDWARDS MD (PCP/Family) Primary Care Physician Patient Instructions: Alcohol Abuse and Alcoholism (DC), Effects of Alcohol on Your Health, Gastritis (DC), Hyponatremia (DC), Syncope (Fainting) (DC) Add. Discharge Instructions: HOME, REST AVOID ALCOHOL AND ENROLL IN OUTPATIENT TREATMENT PROGRAM SOON POSSIBLE FOLLOW UP WITH [facility] IN 1-2 DAYS FOR FURTHER CARE All discharge instructions reviewed with patient and/or family. Voiced understanding. Scripts Sucralfate (Carafate) 1 Gm Tablet 1 GM PO QID, #60 TAB Prov: NYDIA LEE DO 04/08/20 Ondansetron (Ondansetron Odt) 4 Mg Tab.rapdis 4 MG PO Q4H for Nausea/Vomiting, #10 TAB Prov: NYDIA LEE DO 04/08/20 Pantoprazole Sodium (Protonix) 40 Mg Tablet.dr 40 MG PO DAILY, #15 TAB Prov: NYDIA LEE DO 04/08/20 NYDIA LEE DO Apr 08, 2020 20:31
[2020-04-08 20:36] LABS: BASOPHILS % (AUTO) 0 % (0-10); EOSINOPHILS % (AUTO) 0 % (0-10); HEMATOCRIT 38 % (40-54); HEMOGLOBIN 13.7 G/DL (13.3-17.7); LYMPHOCYTES # (AUTO) 1.1 X 10^3 (1.0-4.0); LYMPHOCYTES % (AUTO) 12 % (12-44); MEAN CORPUSCULAR HEMOGLOBIN 33 PG (25-34); MEAN CORPUSCULAR HGB CONC 37 G/DL (32-36); MEAN CORPUSCULAR VOLUME 90 FL (80-99); MEAN PLATELET VOLUME 9.5 FL (7.4-10.4); MONOCYTES # (AUTO) 0.4 X 10^3 (0.0-1.0); MONOCYTES % (AUTO) 4 % (0-12); NEUTROPHILS % (AUTO) 84 % (42-75); PLATELET COUNT 163 10^3/uL (130-400); WHITE BLOOD COUNT 9.5 10^3/uL (4.3-11.0)
--- NOTE | 2020-04-08 20:43 | Diagnostic Imaging Report ---
PROCEDURE: CT head without contrast. TECHNIQUE: Multiple contiguous axial images were obtained through the brain without the use of intravenous contrast. Auto Exposure Controls were utilized during the CT exam to meet ALARA standards for radiation dose reduction. INDICATION: Generalized weakness with dizziness and vomiting for 2 days FINDINGS: The ventricles are normal in size, shape and position. There is no acute parenchymal hemorrhage, edema or mass. There is no extra-axial mass or hemorrhage. IMPRESSION: No acute abnormality is seen. Dictated by: Dictated on workstation # [id number]
[2020-04-08] MEDS ORDERED: PANTOPRAZOLE 40 MG (PROTONIX) VIAL IV ONE (20:45)
[2020-04-08] MEDS ORDERED: LEVETIRACETAM INJECTION 1,000 MG in NS (IVPB) 100 ML IV ONE (20:45)
[2020-04-08] MEDS ORDERED: ONDANSETRON 4 MG/2 ML (SDV) Z0FRAN IVP ONE (20:45)
[2020-04-08 20:46] LABS: PROTHROMBIN TIME PATIENT 13.2 SEC (12.2-14.7)
[2020-04-08 20:50] LABS: CHLORIDE 92 MMOL/L (98-107); POTASSIUM 3.6 MMOL/L (3.6-5.0); SODIUM 130 MMOL/L (135-145)
[2020-04-08 20:52] LABS: CALCIUM 8.8 MG/DL (8.5-10.1)
[2020-04-08 20:53] LABS: GLUCOSE 118 MG/DL (70-105); TOTAL PROTEIN 6.5 GM/DL (6.4-8.2)
[2020-04-08 20:54] LABS: CARBON DIOXIDE 18 MMOL/L (21-32)
--- NOTE | 2020-04-08 20:54 | Diagnostic Imaging Report ---
INDICATION: Weakness with dizziness and vomiting for 2 days, syncope. FINDINGS: A single view of the chest shows normal heart size and vascularity. The lungs are clear. There is no effusion or pneumothorax. There is no bony abnormality. IMPRESSION: No acute abnormality is seen with no change from 03/10/2020. Dictated by: Dictated on workstation # [id number]
[2020-04-08 20:55] LABS: BILIRUBIN,TOTAL 0.8 MG/DL (0.1-1.0)
[2020-04-08 20:56] LABS: ALKALINE PHOSPHATASE 85 U/L (40-136); CREATININE SERUM 0.64 MG/DL (0.60-1.30); GFR ESTIMATED > 60
[2020-04-08 20:57] LABS: BUN/CREATININE RATIO 6
[2020-04-08 20:59] LABS: ALANINE AMINOTRANSFERASE 28 U/L (0-55); MAGNESIUM 1.6 MG/DL (1.6-2.4)
[2020-04-08 21:00] LABS: CREATINE KINASE 108 U/L (30-200)
[2020-04-08 21:06] LABS: CREATINE KINASE MB 4.4 NG/ML (<6.6)
[2020-04-08] MEDS ORDERED: NS IV 1000 ML 1,000 ML IV SCH (21:07)
[2020-04-08 21:36] LABS: AMYLASE 30 U/L (25-125)
[2020-04-08 21:44] LABS: ACETAMINOPHEN < 10 UG/ML (10-30); LIPASE 12 U/L (8-78); SALICYLATE < 5.0 MG/DL (5.0-20.0)
[2020-04-08 21:51] LABS: BILIRUBIN,URINE NEGATIVE (NEGATIVE); CLARITY,URINE CLEAR; COLOR,URINE YELLOW; GLUCOSE, URINE (UA) NEGATIVE (NEGATIVE); KETONES,URINE 1+ (NEGATIVE); LEUKOCYTE ESTERASE ,URINE NEGATIVE (NEGATIVE); NITRITE,URINE NEGATIVE (NEGATIVE); PH,URINE 5.5 (5-9); PROTEIN,URINE TRACE (NEGATIVE)
[2020-04-08 21:57] LABS: BACTERIA,URINE TRACE /HPF; HYALINE CASTS, URINE 0-2 /LPF; SQUAMOUS EPITHELIAL CELL,UR RARE /HPF
[2020-04-08 22:00] LABS: AMPHETAMINE SCREEN, URINE NEGATIVE (NEGATIVE); BARBITURATE SCREEN URINE NEGATIVE (NEGATIVE); BENZODIAZEPINES SCREEN URINE NEGATIVE (NEGATIVE); CANNABINOID SCREEN, URINE NEGATIVE (NEGATIVE); COCAINE SCREEN URINE NEGATIVE (NEGATIVE); METHADONE STAT NEGATIVE (NEGATIVE); METHAMPHETAMINE SCREEN URINE S NEGATIVE (NEGATIVE); OPIATE SCREEN URINE NEGATIVE (NEGATIVE); OXYCODONE STAT NEGATIVE (NEGATIVE); PROPOXYPHENE STAT NEGATIVE (NEGATIVE); TRICYCLIC ANTIDEPRESSANTS SCRE NEGATIVE (NEGATIVE)
[2020-04-08 22:03] LABS: TSH (THYROID ANALYZER) 2.38 UIU/ML (0.35-4.94)
--- NOTE | 2020-04-08 22:21 | NUR ---
Pt reports nausea is at bay, resting in bed. No needs at this time.
--- NOTE | 2020-04-08 22:30 | NUR ---
Pt's called for an update at this time.
[2020-04-08] MEDS ORDERED: ONDA4TAB11 PO (23:49)
[2020-04-08] MEDS ORDERED: PANT40TA2 PO (23:49)
[2020-04-08] MEDS ORDERED: SUCR1TAB36 PO (23:49)
[2020-04-08 23:57] VITALS: BP 125/80
== END 2020-04-08 23:56 | disposition home or self-care (01) ==
LOC: EDUNIT# 20:13 → ER 20:14
DX: R55 Syncope and collapse (principal); F10.229 Alcohol dependence with intoxication, unspecified; E87.1 Hypo-osmolality and hyponatremia; R10.13 Epigastric pain; R07.9 Chest pain, unspecified; J44.9 Chronic obstructive pulmonary disease, unspecified; I10 Essential (primary) hypertension; E78.00 Pure hypercholesterolemia, unspecified; K21.9 Gastro-esophageal reflux disease without esophagitis; F31.9 Bipolar disorder, unspecified; F41.9 Anxiety disorder, unspecified; F17.210 Nicotine dependence, cigarettes, uncomplicated; Z88.8 Allergy status to other drugs, medicaments and biological substances; Y90.6 Blood alcohol level of 120-199 mg/100 ml
CPT/HCPCS: 36415; 70450; 71045; 80053; 80306; 80320; 80329; 81000; 82150; 82550; 82553; 82962; 83690; 83735; 83874; 84443; 84484; 85025; 85610; 85730; 93005; 93041

== ENCOUNTER 2020-05-12 17:46 | Inpatient (IN) | payer OTHER ==
[2020-05-12] VITALS (9 sets, daily range): BP systolic 86–118; BP diastolic 50–73
[~2020-05-12] VITALS: Ht 175.2 cm; Wt 65.3 kg
--- NOTE | 2020-05-12 00:05 | NUR ---
INFORMED DR. FAJARDO THAT LOVENOX ORDER NEEDED CLARIFICATION D/T THE FACT THAT LOVENOX 70MG BID WAS ON THE BRIDGE ORDERS AND THAT IT APPEARED THAT SHE HAD ALSO ENTERED AN ORDER FOR 40MG LOVENOX AND THE PATIENT HAD RECEIVED 40MG ON ADMIT. RECEIVED ORDERS TO ADMINISTER 30MG ADDITIONAL LOVENOX NOW AND THEN TO CONTINUE WITH THE LOVENOX 70MG BID ORDER. Addendum: 05/13/20 at 0021 by HATTIE DAVILA RN DR. FAJARDO CLARIFIED LOVENOX ORDER 05/13/20 AT 0005
[~2020-05-12 17:46] MED LIST changes: +ONDA4TAB11 PO
[2020-05-12] MEDS ORDERED: ONDANSETRON 4 MG/2 ML (SDV) Z0FRAN ONE (18:00)
[2020-05-12] MEDS ORDERED: NITROGLYCERIN 0.4 MG SL TABS BTL 25'S SL PRN (18:00)
[2020-05-12] MEDS ORDERED: ASPIRIN 81 MG CHEW (CHILDREN'S ASA) PO ONE (18:00)
--- NOTE | 2020-05-12 18:03 | Diagnostic Imaging Report ---
INDICATION: Chest pain. COMPARISON: Comparison made with prior examination from 04/08/2020. FINDINGS: The heart size, mediastinal configuration, and pulmonary vascularity are within normal limits. There is no pleural effusion, pneumothorax, or pneumonia. The osseous structures are unremarkable. IMPRESSION: No acute cardiopulmonary abnormality. Dictated by: Dictated on workstation # [id number]
[2020-05-12] MEDS ORDERED: NS IV 1000 ML 1,000 ML IV SCH ×2 (18:09→19:49)
[2020-05-12] MEDS ORDERED: ONDANSETRON 4 MG/2 ML (SDV) Z0FRAN IVP ONE ×2 (18:15→18:45)
[2020-05-12] MEDS ORDERED: LORazepam INJ 2 MG/ML (ATIVAN) VIAL IVP ONE (18:15)
[2020-05-12] MEDS ORDERED: morphine INJ 10 MG/ML 1ML (SYR OR VIAL) IVP ONE (18:15)
[2020-05-12 18:29] LABS: BASOPHILS % (AUTO) 0 % (0-10); EOSINOPHILS % (AUTO) 1 % (0-10); HEMATOCRIT 41 % (40-54); HEMOGLOBIN 15.1 G/DL (13.3-17.7); LYMPHOCYTES % (AUTO) 12 % (12-44); MEAN CORPUSCULAR HEMOGLOBIN 34 PG (25-34); MEAN CORPUSCULAR HGB CONC 37 G/DL (32-36); MEAN CORPUSCULAR VOLUME 92 FL (80-99); MEAN PLATELET VOLUME 10.5 FL (7.4-10.4); MONOCYTES # (AUTO) 0.5 X 10^3 (0.0-1.0); MONOCYTES % (AUTO) 6 % (0-12); NEUTROPHILS # (AUTO) 7.1 X 10^3 (1.8-7.8); NEUTROPHILS % (AUTO) 81 % (42-75); PLATELET COUNT 98 10^3/uL (130-400); RED CELL DISTRIBUTION WIDTH 12.9 % (10.0-14.5); WHITE BLOOD COUNT 8.7 10^3/uL (4.3-11.0)
[2020-05-12] MEDS ORDERED: ANTACID SUSP 30 ML UDC (MYLANTA) PO ONE (18:30)
[2020-05-12] MEDS ORDERED: PANTOPRAZOLE 40 MG (PROTONIX) VIAL IV ONE (18:30)
[2020-05-12] MEDS ORDERED: LIDOCAINE 2% VISCOUS 15 ML UDC PO ONE (18:30)
--- NOTE | 2020-05-12 18:31 | ED Chest Pain ---
General Stated Complaint: STOMACH PAIN, CP, INTERMITTENT FEVER Source: patient Exam Limitations: no limitations (MICHAEL GOMES) History of Present Illness Date Seen by Provider: May 12, 2020 Time Seen by Provider: 17:45 Initial Comments Patient presents to ER by private conveyance from home with chief complaint she's had chest pain off-and-on for the past 4 days. This chest pains been going on this afternoon. Does not take any aspirin. He denies a history of coronary d isease or hypertension. Does not routinely follow with a doctor. The past he has checked into the ER in [place] at his chest pain and at that time they told him it was not a heart attack. He did not make any follow-up lands at that time. No known high cholesterol or diabetes. Denies use of stimulants. Does drink about a sixpack a day and smokes one half packs per day. He says the pain is worse 10 out of 10 in his epigastric region and about a 9 out of 10 in his left upper chest. Not reproducible with palpation or deep inspiration. No shortness of breath cough fever chills or sick contacts. (MICHAEL GOMES) Allergies and Home Medications Allergies Uncoded Allergies: yellow jacket (Allergy, Severe, Anaphylaxis, 04/10/19) has epi pen guinea wasp (Adverse Reaction, Severe, Anaphylaxis, 04/10/19) uses epi pen Home Medications Acetaminophen 500 Mg Tablet, 1,000 MG PO Q8H PRN for PAIN-MILD (1-4), (Reported) Amlodipine Besylate 5 Mg Tablet, 5 MG PO DAILY, (Reported) Atorvastatin Calcium 20 Mg Tablet, 20 MG PO HS, (Reported) Budesonide/Formoterol Fumarate 10.2 Gm Hfa.aer.ad, 2 PUFF IH BID PRN for SHORTNESS OF BREATH, (Reported) Cetirizine HCl 10 Mg Tablet, 10 MG PO DAILY PRN for ALLERGY SYMPTOMS, (Reported) Fluoxetine HCl 40 Mg Capsule, 40 MG PO DAILY, (Reported) Lisinopril 20 Mg Tablet, 20 MG PO DAILY, (Reported) Meloxicam 15 Mg Tablet, 15 MG PO DAILY, (Reported) Olanzapine 10 Mg Tablet, 10 MG PO HS, (Reported) Ondansetron 4 Mg Tab.rapdis, 4 MG PO Q4H Prescribed by: NYDIA PAZ on 6/07/20 2349 Pantoprazole Sodium 40 Mg Tablet.dr, 40 MG PO DAILY, (Reported) Pantoprazole Sodium 40 Mg Tablet.dr, 40 MG PO DAILY Prescribed by: NYDIA PAZ on 04/08/202348 Sucralfate 1 Gm Tablet, 1 GM PO QIDACHS PRN for GI UPSET, (Reported) Sucralfate 1 Gm Tablet, 1 GM PO QID Prescribed by: NYDIA PAZ on 04/08/202348 Tamsulosin HCl 0.4 Mg Cap, 0.4 MG PO DAILY, (Reported) Patient Home Medication List Home Medication List Reviewed: Yes (MICHAEL GOMES) Review of Systems Review of Systems Constitutional: No chills, No diaphoresis, No fever EENTM: No Blurred Vision, No Double Vision Respiratory: Denies Cough, Denies Shortness of Air Cardiovascular: See HPI, Chest Pain; Denies Edema, Denies Irregular Heart Rate, Denies Palpitations Gastrointestinal: See HPI, Abdominal Pain (Epigastric), Nausea, Vomiting (Retching) Genitourinary: Denies Burning, Denies Discharge, Denies Drainage Musculoskeletal: No back pain, No joint pain Skin: No pruritus, No rash Psychiatric/Neurological: Denies Headache, Denies Numbness (MICHAEL GOMES) All Other Systems Reviewed Negative Unless Noted: Yes (MICHAEL GOMES) Past Rxcaocr-Wljqxq-Xtephh Hx Patient Social History Alcohol Use: Regular Use Alcohol Beverage of Choice: Beer (Sixpack a day) Recreational Drug Use: Yes Drug of Choice: THC AGE 18 Smoking Status: Current Everyday Smoker Type Used: Cigarettes (1.5 ppd) 2nd Hand Smoke Exposure: No Recent Hopitalizations: No (MICHAEL GOMES) Seasonal Allergies Seasonal Allergies: No (MICHAEL GOMES) Past Medical History Surgeries: Yes (LEFT INGUINAL HERNIA REPAIRL RIGHT WRIST FX/ORIF) Abdominal, Orthopedic Respiratory: Yes COPD Cardiac: Yes High Cholesterol, Hypertension Neurological: Yes (MEMORY IMPAIRMENT;ETOH WITHDRAWL SEIZURE 03/06;DT'S/HALLUCINATIONS ) Seizure Disorder Genitourinary: Yes Prostate Problems Gastrointestinal: Yes (LEFT INGUINAL HERNIA REPAIR;ELEVATED LFT'S 03/06/20) Abdominal Hernia, Gastroesophageal Reflux Musculoskeletal: Yes (RIGHT WRIST FX/ORIF) Fractures Endocrine: No HEENT: No Cancer: No Psychosocial: Yes (ALCOHOLISM;DT'S WITH HALLUCINATIONS 03/2019;WITHDRAWL SEIZURE 03/06/2020) Anxiety, Bipolar, Depression Integumentary: No Blood Disorders: No (MICHAEL GOMES) Family Medical History Diabetes mellitus 19 FATHER No Pertinent Family Hx (MICHAEL GOMES) Physical Exam Vital Signs Vital Signs - First Documented 05/12/20 18:10 Temp 36.7 Pulse 80 Resp 15 B/P (MAP) 95/57 (70) Pulse Ox 94 O2 Delivery Room Air (ROSA,NYDIA K DO) Vital Signs Capillary Refill : (MICHAEL GOMES) Height, Weight, BMI Height: 5'8.00" Weight: 150lbs. 4.0oz. 68.163602wh; 20.00 BMI Method: General Appearance: No Apparent Distress, WD/WN HEENT: PERRL/EOMI, Normal ENT Inspection, Pharynx Normal, Moist Mucous Membranes Neck: Full Range of Motion, Normal Inspection, Non Tender, Supple Respiratory: Chest Non Tender, Lungs Clear, Normal Breath Sounds, No Accessory Muscle Use, No Respiratory Distress Cardiovascular: Regular Rate, Rhythm, No Edema, Normal Peripheral Pulses, Other (Initial blood pressure 70/40) Gastrointestinal: Normal Bowel Sounds, Non Tender, Soft Extremity: Normal Capillary Refill, Normal Inspection, No Pedal Edema Neurologic/Psychiatric: Alert, Oriented x3, No Motor/Sensory Deficits, Normal Mood/Affect Skin: Normal Color, Warm/Dry (MICHAEL GOMES) Progress/Results/Core Measures Results/Orders Lab Results Laboratory Tests Test 05/12/20 18:13 05/12/20 18:40 Range/Units White Blood Count 8.7 4.3-11.0 10^3/uL Red Blood Count 4.47 4.35-5.85 10^6/uL Hemoglobin 15.1 13.3-17.7 G/DL Hematocrit 41 40-54 % Mean Corpuscular Volume 92 80-99 FL Mean Corpuscular Hemoglobin 34 25-34 PG Mean Corpuscular Hemoglobin Concent 37 H 32-36 G/DL Red Cell Distribution Width 12.9 10.0-14.5 % Platelet Count 98 L 130-400 10^3/uL Mean Platelet Volume 10.5 H 7.4-10.4 FL Neutrophils (%) (Auto) 81 H 42-75 % Lymphocytes (%) (Auto) 12 12-44 % Monocytes (%) (Auto) 6 0-12 % Eosinophils (%) (Auto) 1 0-10 % Basophils (%) (Auto) 0 0-10 % Neutrophils # (Auto) 7.1 1.8-7.8 X 10^3 Lymphocytes # (Auto) 1.0 1.0-4.0 X 10^3 Monocytes # (Auto) 0.5 0.0-1.0 X 10^3 Eosinophils # (Auto) 0.0 0.0-0.3 10^3/uL Basophils # (Auto) 0.0 0.0-0.1 10^3/uL Prothrombin Time 12.2 12.2-14.7 SEC INR Comment 0.9 0.8-1.4 Activated Partial Thromboplast Time 33 24-35 SEC D-Dimer 0.94 H 0.00-0.49 UG/ML B-Type Natriuretic Peptide < 10.0 <100.0 PG/ML Erythrocyte Sedimentation Rate 4 0-30 MM/HR Sodium Level 120 *L 135-145 MMOL/L Potassium Level 3.5 L 3.6-5.0 MMOL/L Chloride Level 82 L 98-107 MMOL/L Carbon Dioxide Level 16 L 21-32 MMOL/L Anion Gap 22 H 5-14 MMOL/L Blood Urea Nitrogen 5 L 7-18 MG/DL Creatinine 0.73 0.60-1.30 MG/DL Estimat Glomerular Filtration Rate > 60 BUN/Creatinine Ratio 7 Glucose Level 83 70-105 MG/DL Calcium Level 8.0 L 8.5-10.1 MG/DL Corrected Calcium 8.2 L 8.5-10.1 MG/DL Magnesium Level 1.7 1.6-2.4 MG/DL Total Bilirubin 0.8 0.1-1.0 MG/DL Aspartate Amino Transf (AST/SGOT) 161 H 5-34 U/L Alanine Aminotransferase (ALT/SGPT) 160 H 0-55 U/L Alkaline Phosphatase 80 40-136 U/L Lactate Dehydrogenase 224 H 125-220 U/L Myoglobin 69.9 10.0-92.0 NG/ML Troponin I < 0.028 <0.028 NG/ML C-Reactive Protein High Sensitivity 4.04 H 0.00-0.50 MG/DL Total Protein 6.2 L 6.4-8.2 GM/DL Albumin 3.8 3.2-4.5 GM/DL Lipase 24 8-78 U/L Procalcitonin 0.21 H <0.10 NG/ML Serum Alcohol 114 H <10 MG/DL (NYDIA PAZ DO) My Orders Orders - NYDIA PAZ DO Ondansetron Injection (Zofran Injectio (05/12/20 18:45) Procalcitonin (Pct) (05/12/20 18:47) Hs C Reactive Protein (05/12/20 18:47) Erythrocyte Sedimentation Rate (05/12/20 18:47) LDH (05/12/20 18:47) Coronavirus Sars-Cov-2 So 2019 (05/12/20 18:47) Ct Gloria Chest/Noang Abd-Pelv W (05/12/20 19:49) Ed Iv/Invasive Line Start (05/12/20 19:49) Ns Iv 1000 Ml (Sodium Chloride 0.9%) (05/12/20 19:49) Iohexol Injection (Omnipaque 350 Mg/Ml 1 (05/12/20 20:00) Received Contrast (Hold Metformin- Contr (05/12/20 20:00) Ns (Ivpb) (Sodium Chloride 0.9% Ivpb Bag (05/12/20 20:00) Drug Screen Stat (Urine) (05/12/20 20:40) Ua Culture If Indicated (05/12/20 20:40) D5 Ns 1000 Ml Iv So... W/Potassium Chlor (05/12/20 21:00) (NYDIA PAZ DO) Medications Given in ED Current Medications Medications Dose Ordered Sig/Misa Route Start Time Stop Time Status Last Admin Dose Admin Al Hydrox/Mg Hydrox/Simethicone 30 ml ONCE ONCE PO 05/12/20 18:30 05/12/20 18:31 DC 05/12/20 18:35 30 ML Aspirin 324 mg ONCE ONCE PO 05/12/20 18:00 05/12/20 18:01 DC 05/12/20 18:15 324 MG Iohexol 100 ml ONCE ONCE IV 05/12/20 20:00 05/12/20 20:01 DC 05/12/20 20:49 100 ML Lidocaine HCl 15 ml ONCE ONCE PO 05/12/20 18:30 05/12/20 18:31 DC 05/12/20 18:35 15 ML Lorazepam 0.5 mg ONCE ONCE IVP 05/12/20 18:15 05/12/20 18:19 DC 05/12/20 18:40 0.5 MG Morphine Sulfate 4 mg ONCE ONCE IVP 05/12/20 18:15 05/12/20 18:16 DC 05/12/20 18:20 4 MG Ondansetron HCl 8 mg ONCE ONCE IVP 05/12/20 18:15 05/12/20 18:16 DC 05/12/20 18:15 8 MG Ondansetron HCl 8 mg ONCE ONCE IVP 05/12/20 18:45 05/12/20 18:46 DC 05/12/20 18:40 8 MG Pantoprazole 40 mg ONCE ONCE IV 05/12/20 18:30 05/12/20 18:31 DC 05/12/20 20:49 40 MG Sodium Chloride 100 ml ONCE ONCE IV 05/12/20 20:00 05/12/20 20:01 DC 05/12/20 20:49 80 ML (NYDIA PAZ DO) Vital Signs/I&O 05/12/20 05/12/20 05/12/20 18:10 18:10 18:13 Temp 36.7 36.8 Pulse 80 100 Resp 15 22 B/P (MAP) 95/57 (70) 95/57 (70) Pulse Ox 94 99 O2 Delivery Room Air Room Air (NYDIA PAZ DO) Progress Progress Note : Time: 18:25 Progress Note Patient does not have any symptoms of infection. Differential includes non-STEMI versus pancreatitis versus gastritis versus PUD versus esophagitis versus other. Patient is very diaphoretic and uncomfortable with low blood pressure. Liter fluids and morphine was ordered which helped a little bit with his pain. Pantoprazole and a GI cocktail ordered to help with his epigastric pain to see if it would differentiate. Aspirin was given to chew and swallow. The patient did have a short choking episode on the aspirin however he quickly recovered. Chest x-ray is unremarkable. Phenytoin over care of the patient to Dr. Paz for further disposition. We'll attempt another EKG shortly. We did order half a mi lligram of IV Ativan to help with his potential withdrawal symptoms. (MICHAEL GOMES) Progress Note : Progress Note 1829--ASSUMED CARE FROM DR. GOMES, LAB PENDING 1899--PT IS FEELING MUCH BETTER. NAUSEA IS GONE AND PAIN IS MUCH IMPROVED, PT IS RESTING QUIETLY. WILL OBTAIN CT CHEST/ABDOMEN/PELVIS. (NYDIA PAZ DO) Initial ECG Impression Date: May 12, 2020 Initial ECG Impression Time: 18:00 Initial ECG Rate: 87 Initial ECG Rhythm: Normal Sinus Initial ECG Intervals: Normal Initial ECG Impression: Normal Comment Normal sinus rhythm with a lot of respiratory artifact. No clinically relevant ST elevation or depression. (MICHAEL GOMES) Diagnostic Imaging Diagonstic Imaging: Xray Plain Films/CT/US/NM/MRI: chest Comments NAME: CHARLIE JOHNSON MED REC#: [id number] PT STATUS: REG ER : 1970 PHYSICIAN: MICHAEL GOMES MD ADMIT DATE: 05/12/20/ER Draft Date of Exam:05/12/20 CHEST 1 VIEW, AP/PA ONLY INDICATION: Chest pain. COMPARISON: Comparison made with prior examination from 04/08/2020. FINDINGS: The heart size, mediastinal configuration, and pulmonary vascularity are within normal limits. There is no pleural effusion, pneumothorax, or pneumonia. The osseous structures are unremarkable. IMPRESSION: No acute cardiopulmonary abnormality. Dictated on workstation # [id number] Dict: 05/12/20 1758 Trans: 05/12/20 1803 AS6 [id number] Interpreted by: CHEN KAN MD Electronically signed by: Reviewed: Reviewed by Me (MICHAEL GOMES) Comments CT ABDOMEN/PELVIS--PER RADIOLOGIST REPORT AT 2113 FINDINGS: There are no primary nodules, masses, or infiltrates. There is no pleural or pericardial fluid. There is no pneumothorax. There is no pathologically enlarged adenopathy in the chest. The thoracic aorta is normal in caliber and without evidence of dissection. There are no filling defects seen within the pulmonary arteries to suggest a pulmonary embolism. The visualized intraabdominal structures are unremarkable. The osseous structures are unremarkable. There is fatty infiltration of the liver. The gallbladder is unremarkable. There is no biliary ductal dilatation. The spleen is normal. The pancreas and adrenal glands are unremarkable. The kidneys are normal in appearance. The aorta is nonaneurysmal. The bowel gas pattern is nonspecific. The appendix is normal. There is no free air. There is no ascites. There are no focal inflammatory changes. Bladder si normal. There is no pelvic mass or adenopathy. IMPRESSION: No acute abnormality in the chest. Specifically, there is no evidence of a pulmonary embolism or aortic dissection. (NYDIA PAZ DO) Departure Communication (Admissions) 1849--=SPOKE WITH DR. FAJARDO, HOSPITALIST FOR [facility]. ACCEPTS PT FOR ADMIT. (NYDIA PAZ DO) Impression Primary Impression: Chest pain Additional Impressions: Abdominal pain Alcohol abuse Hyponatremia COVID P.U.I. Disposition: ADMITTED INPATIENT Condition: Improved Admissions Decision to Admit Reason: Admit from ER (General) Decision to Admit/Date: May 12, 2020 Time/Decision to Admit Time: 18:50 (NYDIA PAZ DO) Departure-Patient Inst. Referrals: LISA EDWARDS MD (PCP/Family) Primary Care Physician MICHAEL GOMES May 12, 2020 18:31 NYDIA PAZ DO May 12, 2020 19:55
[2020-05-12 18:55] LABS: FIBRIN DEGRADATION PRODUCTS 0.94 UG/ML (0.00-0.49); INR 0.9 (0.8-1.4); PROTHROMBIN TIME PATIENT 12.2 SEC (12.2-14.7)
[2020-05-12 19:10] LABS: ALBUMIN 3.8 GM/DL (3.2-4.5)
[2020-05-12 19:11] LABS: CHLORIDE 82 MMOL/L (98-107); POTASSIUM 3.5 MMOL/L (3.6-5.0)
[2020-05-12 19:13] LABS: GLUCOSE 83 MG/DL (70-105); TOTAL PROTEIN 6.2 GM/DL (6.4-8.2)
[2020-05-12 19:14] LABS: CARBON DIOXIDE 16 MMOL/L (21-32)
[2020-05-12 19:15] LABS: BILIRUBIN,TOTAL 0.8 MG/DL (0.1-1.0)
[2020-05-12 19:16] LABS: ALKALINE PHOSPHATASE 80 U/L (40-136)
[2020-05-12 19:17] LABS: CREATININE SERUM 0.73 MG/DL (0.60-1.30); GFR ESTIMATED > 60
[2020-05-12 19:18] LABS: BUN/CREATININE RATIO 7
[2020-05-12 19:20] LABS: ALANINE AMINOTRANSFERASE 160 U/L (0-55); MAGNESIUM 1.7 MG/DL (1.6-2.4)
[2020-05-12 19:21] LABS: LIPASE 24 U/L (8-78); MAGNESIUM 1.7 MG/DL (1.6-2.4)
[2020-05-12 19:22] LABS: SODIUM 120 MMOL/L (135-145)
[2020-05-12] MEDS ORDERED: IOHEXOL 350 MG/ML 100 ML (OMNIPAQUE 350) VIAL IV ONE (20:00)
[2020-05-12] MEDS ORDERED: HOLD METFORMIN - RECEIVED CONTRAST 20 ML VIAL IV SCH (20:00)
[2020-05-12] MEDS ORDERED: NS 100 ML (IVPB) BAG IV ONE (20:00)
[2020-05-12] MEDS ORDERED: POTASSIUM CHLORIDE INJ 20 MEQ in D5 NS 1000 ML IV SOLUTION 1,000 ML IV SCH (21:00)
[2020-05-12] MEDS ORDERED: D5 NS W/KCL 20 MEQ/L 1,000 ML IV ONE (21:05)
--- NOTE | 2020-05-12 21:10 | Diagnostic Imaging Report ---
INDICATION: Chest pain, shortness of breath EXAM: CTA chest, abdomen and pelvis Thin axial sections through the chest, abdomen and pelvis are obtained following intravenous contrast bolus. Multiplanar MIP images were reconstructed and reviewed. All CT scans use one or more of the following dose optimizing techniques: automated exposure control, MA and/or KvP adjustment based on a patient size and exam type, or iterative reconstruction. FINDINGS: There are no primary nodules, masses, or infiltrates. There is no pleural or pericardial fluid. There is no pneumothorax. There is no pathologically enlarged adenopathy in the chest. The thoracic aorta is normal in caliber and without evidence of dissection. There are no filling defects seen within the pulmonary arteries to suggest a pulmonary embolism. The visualized intraabdominal structures are unremarkable. The osseous structures are unremarkable. There is fatty infiltration of the liver. The gallbladder is unremarkable. There is no biliary ductal dilatation. The spleen is normal. The pancreas and adrenal glands are unremarkable. The kidneys are normal in appearance. The aorta is nonaneurysmal. The bowel gas pattern is nonspecific. The appendix is normal. There is no free air. There is no ascites. There are no focal inflammatory changes. Bladder si normal. There is no pelvic mass or adenopathy. IMPRESSION: No acute abnormality in the chest. Specifically, there is no evidence of a pulmonary embolism or aortic dissection. No acute abnormality in the abdomen or pelvis. Dictated by: Dictated on workstation # [id number]
[2020-05-12] MEDS ORDERED: 1/2 NS IV SOLUTION 1,000 ML IV PRN (21:47)
--- NOTE | 2020-05-12 21:50 | NUR ---
CHARLIE JOHNSON admitted to room CU9-1, with an admitting diagnosis of CHEST PAIN, ABD PAIN, N/V, COVID PUI , on 05/12/20 from ED via WHEELCHAIR, accompanied by HOSPITAL STAFF. CHARLIE JOHNSON introduced to surroundings, call light, bed controls, phone, TV, temperature control, lights, meal times, smoking policy, visitor policy, side rail policy, bathrooms and showers. Patient Rights given to patient in the handbook.CHARLIE JOHNSON verbalizes understanding that [facility] is not responsible for the loss or damage to any personal effects or valuables that are kept in the patients posession during their hospitalization. CHARLIE JOHNSON verbalizes understanding of Interdisciplinary Patient Education. Patient and/or family were informed about the Rapid Response Team and its purpose.
[2020-05-12 21:57] LABS: BILIRUBIN,URINE NEGATIVE (NEGATIVE); CLARITY,URINE CLEAR; COLOR,URINE YELLOW; GLUCOSE, URINE (UA) NEGATIVE (NEGATIVE); KETONES,URINE 1+ (NEGATIVE); LEUKOCYTE ESTERASE ,URINE NEGATIVE (NEGATIVE); NITRITE,URINE NEGATIVE (NEGATIVE); PROTEIN,URINE NEGATIVE (NEGATIVE)
[2020-05-12] MEDS ORDERED: fentaNYL INJECTION 100 MCG/2 ML AMP IVP PRN (22:00)
[2020-05-12] MEDS ORDERED: ENOXAPARIN 40 MG/0.4 ML (LOVENOX) SYR SC SCH (22:00)
[2020-05-12] MEDS ORDERED: diphenhydrAMINE 25 MG TAB (BENADRYL) PO PRN (22:00)
[2020-05-12] MEDS ORDERED: ANTACID SUSP 30 ML UDC (MYLANTA) PO PRN (22:00)
[2020-05-12] MEDS ORDERED: LORazepam 1 MG (ATIVAN) TAB PO PRN (22:00)
[2020-05-12] MEDS ORDERED: LORazepam INJ 2 MG/ML (ATIVAN) VIAL IM/IV PRN (22:00)
[2020-05-12] MEDS ORDERED: MELATONIN 3 MG TABLET PO PRN (22:00)
[2020-05-12] MEDS ORDERED: LORazepam INJ 2 MG/ML (ATIVAN) VIAL IV PRN (22:00)
[2020-05-12] MEDS ORDERED: DOCUSATE SODIUM 100 MG (COLACE) CAP PO PRN (22:00)
[2020-05-12] MEDS ORDERED: SENNA W/DOCUSATE (SENOKOT S) TABLET PO PRN (22:00)
[2020-05-12] MEDS ORDERED: CALCIUM CARBONATE 500 MG (TUMS) TAB.CHEW PO PRN (22:00)
[2020-05-12] MEDS ORDERED: ONDANSETRON 4 MG/2 ML (SDV) Z0FRAN IV PRN (22:00)
[2020-05-12] MEDS ORDERED: D5 1/2 NS 1000 ML IV SOLUTION 1,000 ML IV PRN (22:00)
[2020-05-12] MEDS ORDERED: ONDANSETRON 4 MG (ZOFRAN) ORAL DISSOLVE TAB SL PRN (22:00)
[2020-05-12 22:12] LABS: BACTERIA,URINE NEGATIVE /HPF
[2020-05-12 22:17] LABS: AMPHETAMINE SCREEN, URINE NEGATIVE (NEGATIVE); BARBITURATE SCREEN URINE NEGATIVE (NEGATIVE); BENZODIAZEPINES SCREEN URINE NEGATIVE (NEGATIVE); CANNABINOID SCREEN, URINE NEGATIVE (NEGATIVE); COCAINE SCREEN URINE NEGATIVE (NEGATIVE); METHADONE STAT NEGATIVE (NEGATIVE); METHAMPHETAMINE SCREEN URINE S NEGATIVE (NEGATIVE); OPIATE SCREEN URINE POSITIVE (NEGATIVE); OXYCODONE STAT NEGATIVE (NEGATIVE); PROPOXYPHENE STAT NEGATIVE (NEGATIVE); TRICYCLIC ANTIDEPRESSANTS SCRE NEGATIVE (NEGATIVE)
[2020-05-12] MEDS ORDERED: morphine INJ 4 MG/ML 1 ML (VIAL/SYRINGE) IV PRN (23:45)
[2020-05-12] MEDS ORDERED: D5 NS W/KCL 20 MEQ/L 1,000 ML IV SCH (23:45)
[2020-05-13] VITALS (18 sets, daily range): BP systolic 92–178; BP diastolic 51–103
[2020-05-13] MEDS ORDERED: RT-ALBUTEROL INHALER HFA (VENTOLIN HFA) 18 GM IH PRN (00:15)
[2020-05-13] MEDS ORDERED: ENOXAPARIN 30 MG/0.3 ML (LOVENOX) SYR SC ONE (00:15)
[2020-05-13] MEDS: ENOXAPARIN 80 MG/0.8 ML (LOVENOX) SYR SC SCH ×2 (00:16→14:31)
--- NOTE | 2020-05-13 03:35 | NUR ---
INFORMED DR. FAJARDO OF THE NEED TO CLARIFY PATIENT'S FLUID ORDER D/T THE FACT THAT D5NS W/ 20K @ 120 ML/HR AND NS @ 85ML/HR WERE BOTH ON THE eMAR. RECEIVED ORDER FROM DR. FAJARDO TO RUN NS@85 ML/HR.
[2020-05-13 03:48] LABS: BASOPHILS % (AUTO) 0 % (0-10); EOSINOPHILS % (AUTO) 0 % (0-10); HEMATOCRIT 35 % (40-54); HEMOGLOBIN 12.5 G/DL (13.3-17.7); LYMPHOCYTES # (AUTO) 1.1 X 10^3 (1.0-4.0); LYMPHOCYTES % (AUTO) 16 % (12-44); MEAN CORPUSCULAR HEMOGLOBIN 34 PG (25-34); MEAN CORPUSCULAR HGB CONC 36 G/DL (32-36); MEAN CORPUSCULAR VOLUME 93 FL (80-99); MEAN PLATELET VOLUME 10.5 FL (7.4-10.4); MONOCYTES # (AUTO) 0.4 X 10^3 (0.0-1.0); MONOCYTES % (AUTO) 7 % (0-12); NEUTROPHILS # (AUTO) 5.1 X 10^3 (1.8-7.8); NEUTROPHILS % (AUTO) 77 % (42-75); PLATELET COUNT 88 10^3/uL (130-400); RED CELL DISTRIBUTION WIDTH 12.9 % (10.0-14.5); WHITE BLOOD COUNT 6.6 10^3/uL (4.3-11.0)
[2020-05-13 03:56] LABS: ALBUMIN 3.7 GM/DL (3.2-4.5); CHLORIDE 95 MMOL/L (98-107); POTASSIUM 4.1 MMOL/L (3.6-5.0); SODIUM 127 MMOL/L (135-145)
[2020-05-13 03:57] LABS: CALCIUM 8.2 MG/DL (8.5-10.1)
[2020-05-13 03:58] LABS: TRIGLYCERIDES 60 MG/DL (<150); VLDL CHOLESTEROL 12 MG/DL (5-40)
[2020-05-13 03:59] LABS: GLUCOSE 81 MG/DL (70-105); TOTAL PROTEIN 5.8 GM/DL (6.4-8.2)
[2020-05-13 04:00] LABS: CARBON DIOXIDE 18 MMOL/L (21-32)
[2020-05-13 04:02] LABS: ALKALINE PHOSPHATASE 73 U/L (40-136); GFR ESTIMATED > 60
[2020-05-13 04:03] LABS: CHOLESTEROL 177 MG/DL (< 200)
[2020-05-13 04:04] LABS: BUN/CREATININE RATIO 7
[2020-05-13 04:05] LABS: HDL CHOLESTEROL 97 MG/DL (40-60)
[2020-05-13 04:06] LABS: ALANINE AMINOTRANSFERASE 134 U/L (0-55)
[2020-05-13] MEDS: NS IV 1000 ML 1,000 ML IV SCH ×3 (04:29→19:48)
--- NOTE | 2020-05-13 06:03 | Pulmonary Consultation ---
History of Present Illness History of Present Illness Date Seen by Provider: May 13, 2020 Time Seen by Provider: 06:03 Date of Admission History of Present Illness Allergies and Home Medications Allergies Uncoded Allergies: yellow jacket (Allergy, Severe, Anaphylaxis, 04/10/19) has epi pen guinea wasp (Adverse Reaction, Severe, Anaphylaxis, 04/10/19) uses epi pen Home Medications Acetaminophen 500 Mg Tablet, 1,000 MG PO Q8H PRN for PAIN-MILD (1-4), (Reported) Amlodipine Besylate 5 Mg Tablet, 5 MG PO DAILY, (Reported) Atorvastatin Calcium 20 Mg Tablet, 20 MG PO HS, (Reported) Budesonide/Formoterol Fumarate 10.2 Gm Hfa.aer.ad, 2 PUFF IH BID PRN for SHORTNESS OF BREATH, (Reported) Cetirizine HCl 10 Mg Tablet, 10 MG PO DAILY PRN for ALLERGY SYMPTOMS, (Reported) Fluoxetine HCl 40 Mg Capsule, 40 MG PO DAILY, (Reported) Lisinopril 20 Mg Tablet, 20 MG PO DAILY, (Reported) Meloxicam 15 Mg Tablet, 15 MG PO DAILY, (Reported) Olanzapine 10 Mg Tablet, 10 MG PO HS, (Reported) Ondansetron 4 Mg Tab.rapdis, 4 MG PO Q4H Prescribed by: NYDIA LEE on 04/08/202348 Pantoprazole Sodium 40 Mg Tablet.dr, 40 MG PO DAILY, (Reported) Pantoprazole Sodium 40 Mg Tablet.dr, 40 MG PO DAILY Prescribed by: NYDIA LEE on 04/08/202348 Sucralfate 1 Gm Tablet, 1 GM PO QIDACHS PRN for GI UPSET, (Reported) Sucralfate 1 Gm Tablet, 1 GM PO QID Prescribed by: NYDIA LEE on 04/08/202348 Tamsulosin HCl 0.4 Mg Cap, 0.4 MG PO DAILY, (Reported) Past Cdjvbdh-Fgjlab-Lddlfr Hx Patient Social History Alcohol Use: Regular Use Number of Drinks Today: 6 Alcohol Beverage of Choice: Beer (Sixpack a day) Recreational Drug Use: Yes Drug of Choice: THC AGE 18 Smoking Status: Current Everyday Smoker Type Used: Cigarettes (1.5 ppd) 2nd Hand Smoke Exposure: No Recent Foreign Travel: No Contact w/Someone Who Travel: No Recent Infectious Disease Expo: No Recent Hopitalizations: No Physical Abuse: No Sexual Abuse: No Mistreated: No Fear: No Seasonal Allergies Seasonal Allergies: No Past Medical History Surgeries: Yes (LEFT INGUINAL HERNIA REPAIRL RIGHT WRIST FX/ORIF) Abdominal, Orthopedic Respiratory: Yes COPD Cardiac: Yes High Cholesterol, Hypertension Neurological: Yes (MEMORY IMPAIRMENT;ETOH WITHDRAWL SEIZURE 03/06/20;DT'S/HALLUCINATIONS ) Seizure Disorder Genitourinary: Yes Prostate Problems Gastrointestinal: Yes (LEFT INGUINAL HERNIA REPAIR;ELEVATED LFT'S 03/06/20) Abdominal Hernia, Gastroesophageal Reflux Musculoskeletal: Yes (RIGHT WRIST FX/ORIF) Fractures Endocrine: No HEENT: No Cancer: No Psychosocial: Yes (ALCOHOLISM;DT'S WITH HALLUCINATIONS 03/2019;WITHDRAWL SEIZURE 03/06/2020) Anxiety, Bipolar, Depression Integumentary: No Blood Disorders: No Family Medical History Diabetes mellitus 19 FATHER No Pertinent Family Hx Review of Systems Time Seen by Provider: 07:39 Sepsis Event Evaluation Height, Weight, BMI Height: 5'8.00" Weight: 150lbs. 4.0oz. 68.329204lz; 21.27 BMI Method: Exam Exam Vital Signs Date Time Temp Pulse Resp B/P (MAP) Pulse Ox O2 Delivery O2 Flow Rate FiO2 05/13/20 04:00 36.3 05/13/20 04:00 92 Room Air 05/13/20 01:00 107 05/13/20 00:00 36.5 05/13/20 00:00 91 Room Air 05/12/20 23:55 97 92 21 05/12/20 21:59 95 05/12/20 21:50 36.8 100 16 120/69 98 05/12/20 21:50 36.4 05/12/20 21:50 91 Room Air 05/12/20 19:43 88 20 90/53 (65) 98 Room Air 05/12/20 19:28 91 20 86/58 (67) 98 Room Air 05/12/20 19:13 91 18 103/61 (75) 97 Room Air 05/12/20 18:43 87 20 115/66 (82) 99 Room Air 05/12/20 18:28 86 20 96/56 (69) 99 Room Air 05/12/20 18:13 36.8 100 22 95/57 (70) 99 Room Air 05/12/20 18:10 Room Air 05/12/20 18:10 36.7 80 15 95/57 (17) 94 I & O 05/13/20 07:00 Intake Total 3010 ml Output Total 1500 ml Balance 1510 ml Height & Weight Height: 5'8.00" Weight: 150lbs. 4.0oz. 68.924995gp; 21.27 BMI Method: General Appearance: No Apparent Distress, WD/WN HEENT: PERRL/EOMI, Normal ENT Inspection, Pharynx Normal, Moist Mucous Membranes Neck: Full Range of Motion, Normal Inspection, Non Tender, Supple Respiratory: Chest Non Tender, Lungs Clear, Normal Breath Sounds, No Accessory Muscle Use, No Respiratory Distress Cardiovascular: Regular Rate, Rhythm, No Edema, Normal Peripheral Pulses, Other (Initial blood pressure 70/40) Capillary Refill: Less Than 3 Seconds Extremity: Normal Capillary Refill, Normal Inspection, No Pedal Edema Neurologic/Psychiatric: Alert, Oriented x3, No Motor/Sensory Deficits, Normal Mood/Affect Skin: Normal Color, Warm/Dry Results Lab Laboratory Tests 05/12/20 18:13 05/12/20 18:40 05/13/20 03:35 Assessment/Plan Assessment/Plan CP -Cardiology consulted -Troponin negative x 2 -COVID is pending -CTA is negative for PE and shows no acute process Alcohol dependance -WA protocol Hyponatremia -Monitor Metabolic acidosis - probably secondary to dehydration/alcohol -IVF and monitor Chest pain KEENA CABRERA DO May 13, 2020 06:03
--- NOTE | 2020-05-13 06:07 | History & Physical-Hospitalist ---
History of Present Illness Date Seen 05/13/20 Attending Physician Mckayla Esquivel DO PCP Zainab Saleem MD Referring Physician Date of Admission May 12, 2020 at 18:50 Home Medications & Allergies Home Medications Reviewed patient Home Medication Reconciliation performed by pharmacy medication reconciliations train control electronic technician and/or nursing. Patients Allergies have been reviewed. Allergies Allergies Uncoded Allergies yellow jacket ( Allergy, Severe, Anaphylaxis, 04/10/19) has epi pen guinea wasp ( Adverse Reaction, Severe, Anaphylaxis, 04/10/19) uses epi pen Past Bfpgkgx-Rimqbx-Lycvhd Hx Patient Social History Alcohol Use: Regular Use Number of Drinks Today: 6 Alcohol Beverage of Choice: Beer (Sixpack a day) Recreational Drug Use: Yes Drug of Choice: THC AGE 18 Smoking Status: Current Everyday Smoker Type Used: Cigarettes (1.5 ppd) 2nd Hand Smoke Exposure: No Recent Foreign Travel: No Contact w/other who traveled: No Recent Hopitalizations: No Recent Infectious Disease Expo: No Seasonal Allergies Seasonal Allergies: No Past Medical History Surgeries: Abdominal, Orthopedic Cardiac: High Cholesterol, Hypertension Neurological: Seizure Disorder Genitourinary: Prostate Problems Gastrointestinal: Abdominal Hernia, Gastroesophageal Reflux Musculoskeletal: Fractures Psychosocial: Anxiety, Bipolar, Depression History of Blood Disorders: No Family History Diabetes mellitus 19 FATHER No Pertinent Family Hx Physical Exam Physical Exam Vital Signs Vital Signs - First Documented 05/12/20 05/12/20 18:10 23:55 Temp 36.7 Pulse 80 Resp 15 B/P (MAP) 95/57 (70) Pulse Ox 94 O2 Delivery Room Air FiO2 21 Capillary Refill : Less Than 3 Seconds Height, Weight, BMI Height: 5'8.00" Weight: 150lbs. 4.0oz. 68.217026uq; 21.27 BMI Method: Results Results/Procedures Labs Laboratory Tests 05/12/20 18:13 05/12/20 18:40 05/13/20 03:35 Patient resulted labs reviewed. Clinical Quality Measures AMI/AHF: ASA po Prior to arrival: No DVT/VTE Risk/Contraindication: Risk Factor Score Per Nursin RFS Level Per Nursing on Admit: 1=Low/No VTE PPX MCKAYLA ESQUIVEL DO May 13, 2020 06:07
--- NOTE | 2020-05-13 06:34 | NUR ---
INFORMED DR. CORMIER THAT HE IS CONSULTED ON THIS PATIENT.
[2020-05-13] MEDS: THIAMINE 100 MG (VITAMIN B-1) TAB PO SCH (07:18)
[2020-05-13] MEDS: MULTIVIT W/MINERALS TAB (THERAGRAN M) PO SCH (07:18)
[2020-05-13] MEDS: SENNA W/DOCUSATE (SENOKOT S) TABLET PO SCH ×2 (09:55→21:00)
[2020-05-13] MEDS: ASPIRIN E.C. 81 MG (ECOTRIN) TAB PO SCH (09:56)
[2020-05-13] MEDS: MAGNESIUM OXIDE (MAG-OX)400 MG TAB PO SCH ×2 (09:56→19:50)
[2020-05-13] MEDS: FOLIC ACID 1 MG TAB PO SCH (09:56)
[2020-05-13] MEDS: PANTOPRAZOLE 40 MG (PROTONIX) VIAL IV SCH (09:56)
--- NOTE | 2020-05-13 10:53 | Short Stay Summary-Hospitalist ---
History of Present Illness HPI/Chief Complaint CC: SOB with alcoholism HPI: This is a 49yoWM clinic Pt of [facility] who has a PMH of extensive alcoholism who presents with SOB and intoxicated. It appears that he was on the verge of alcohol withdrawal so he was placed in the ICU. Fluid restricted for sodium level of 120 and was evaluated for a variety of sources of SOB but currently Pt feels much better and the priority is to discharge him prior to complete-floured alcohol withdrawal. He has plans to get treatment for alcoholism in one month. His COVID swab is pending. Source: patient, RN/MD, old records Date Seen 05/13/20 Time Seen by a Provider: 09:40 Attending Physician Mckayla Esquivel Julie A MD Referring Physician Date of Admission May 12, 2020 at 18:50 Home Medications & Allergies Home Medications Reviewed patient Home Medication Reconciliation performed by pharmacy medication reconciliations mechanical design technician and/or nursing. Patients Allergies have been reviewed. Allergies Allergies Uncoded Allergies yellow jacket ( Allergy, Severe, Anaphylaxis, 04/10/19) has epi pen guinea wasp ( Adverse Reaction, Severe, Anaphylaxis, 04/10/19) uses epi pen Past Ubevhbw-Nmgmqu-Vjwpsw Hx Past Med/Social Hx: Reviewed Nursing Past Med/Soc Hx, Reviewed and Corrections made Patient Social History Marrital Status: cohabiting Alcohol Use: Regular Use Number of Drinks Today: 6 Alcohol Beverage of Choice: Beer (Sixpack a day) Recreational Drug Use: Yes Drug of Choice: THC AGE 18 Smoking Status: Current Everyday Smoker Type Used: Cigarettes (1.5 ppd) 2nd Hand Smoke Exposure: No Recent Foreign Travel: No Contact w/other who traveled: No Recent Hopitalizations: No Recent Infectious Disease Expo: No Seasonal Allergies Seasonal Allergies: No Past Medical History Surgeries: Abdominal, Orthopedic Respiratory: COPD Cardiac: High Cholesterol, Hypertension HTN Neurological: Seizure Disorder Genitourinary: Prostate Problems Gastrointestinal: Abdominal Hernia, Gastroesophageal Reflux Musculoskeletal: Fractures Psychosocial: Anxiety, Bipolar, Depression History of Blood Disorders: No Family History Diabetes mellitus 19 FATHER No Pertinent Family Hx Review of Systems Constitutional: see HPI, other (fatigue) Respiratory: other (dyspnea) Physical Exam Physical Exam Vital Signs Vital Signs - First Documented 05/12/20 05/12/20 05/13/20 18:10 23:55 09:00 Temp 36.7 Pulse 80 Resp 15 B/P (MAP) 95/57 (70) Pulse Ox 94 O2 Delivery Room Air O2 Flow Rate 0.00 FiO2 21 Capillary Refill : Less Than 3 Seconds Height, Weight, BMI Height: 5'8.00" Weight: 150lbs. 4.0oz. [id number]; 21.27 BMI Method: General Appearance: No Apparent Distress, WD/WN, Chronically ill Eyes: Bilateral Eye Normal Inspection, Bilateral Eye PERRL HEENT: PERRL/EOMI, Normal ENT Inspection, Pharynx Normal, Moist Mucous Membranes Neck: Full Range of Motion, Normal Inspection, Non Tender, Supple Respiratory: Chest Non Tender, Lungs Clear, Normal Breath Sounds, No Accessory Muscle Use, No Respiratory Distress Cardiovascular: Regular Rate, Rhythm, No Edema, Normal Peripheral Pulses, Other (Initial blood pressure 70/40) Gastrointestinal: Normal Bowel Sounds, Non Tender, Soft Back: Normal Inspection, No CVA Tenderness, No Vertebral Tenderness Extremity: Normal Capillary Refill, Normal Inspection, No Pedal Edema Neurologic/Psychiatric: Alert, Oriented x3, No Motor/Sensory Deficits, Normal Mood/Affect Skin: Normal Color, Warm/Dry Lymphatic: No Adenopathy Results Results/Procedures Labs Laboratory Tests 05/12/20 18:13 05/12/20 18:40 05/13/20 03:35 Patient resulted labs reviewed. Short Stay Diagnosis Discharge Diagnosis-Short Stay Admission Diagnosis Assessment: Dyspnea Hyponatremia COPD Alcohol use Smoking Plan: Discharge home when ok with cardiology and pulmonology before alcohol withdrawal occurs Fluid restriction Final Discharge Diagnosis Assessment: Dyspnea Hyponatremia COPD Alcohol use Smoking Plan: Discharge home when ok with cardiology and pulmonology before alcohol withdrawal occurs Fluid restriction Conclusion Plan Assessment: Dyspnea Hyponatremia COPD Alcohol use Smoking Plan: Discharge home when ok with cardiology and pulmonology before alcohol withdrawal occurs Fluid restriction Diagnosis/Problems Diagnosis/Problems (1) Hyponatremia Status: Acute (2) Chest pain Status: Acute (3) Elevated LFTs Status: Acute (4) Alcohol withdrawal Status: Acute (5) HTN (hypertension) Status: Chronic (6) Alcohol abuse Clinical Quality Measures AMI/AHF: ASA po Prior to arrival: No DVT/VTE Risk/Contraindication: Risk Factor Score Per Nursin RFS Level Per Nursing on Admit: 1=Low/No VTE PPX MCKAYLA ESQUIVEL DO May 13, 2020 10:53
--- NOTE | 2020-05-13 11:19 | NUR ---
CM/SS visited with the patient for social service consult. Plan: The patient will return home via transportation from his [place]. Inpatient alcohol treatment: The patient is working with Sherlyn Cunha at the [facility] and is enrolled in the outpatient program. The patient reports that Sherlyn is working on getting him into the [facility] in [place]. He believes he will be able to go the week of May. At the previous hospital stay the patient reported he had a bed date for a different inpatient treatment but stated he did not go. The patient reports that he is currently still drinking but also wants to start going to AA meetings. He states there is one just a couple of blocks away from his home. He does not have a AA sponsor. The patient verbalized that his and children are very supportive for him. No further needs at this time. Addendum: 05/13/20 at 1128 by MYA RENNER The patients cell phone number is [phone]. CM/SS did visit via phone due to pending Covid test.
[2020-05-13] MEDS ORDERED: MAG-141 PO (14:01)
[2020-05-13] MEDS ORDERED: HYDR50TA76 PO (14:01)
--- NOTE | 2020-05-13 14:02 | NUR ---
SPOKE WITH THE PTS AMOL AND CALLED [facility] AND [facility] TO COMPLETE THE MED REC THE FOLLOWING MEDICATIONS WERE FILLED THRU THE REPOSITORY: 11-07-2019 PROTONIX 40MG #90/45DS (DIRECTIONS ARE 1 TAB BID HOWEVER THE PT ONLY TAKES 1 ) 11-07-2019 CARAFATE 1GM #90/22DS (DIRECTIONS ARE 1 TAB QIDAC HOWEVER THE PT TAKES PRN) 12-04-2019 ATORVASTATIN 20MG #90/90DS 12-04-2019 LISINOPRIL 20MG #90/90DS 12-04-2019 AMLODIPINE 5MG #90/90DS 02-15-2020 TAMSULOSIN 0.4MG #90/90DS 02-15-2020 MELOXICAM 15MG #90/90DS I DID DOCUMENT ON THE MED REC FOR THE MEDS THAT A PAST DUE FOR A REFILL MEDS THAT WERE FILLED AT [facility] 02-10-2020 FLUOXETINE 40MG #60/60DS 03-27-2020 HYDROXYZINE 50MG #30/30DS 05-02-2020 ZYPREXA 10MG #30/30DS OTC MEDS: TYLENOL ZYRTEC MYLANTA
--- NOTE | 2020-05-13 15:41 | Consultation-Cardiology ---
HPI-Cardiology Cardiology Consultation: Date of Consultation 05/13/20 Date of Admission Attending Physician Mckayla Esquivel DO Admitting Physician Zainab Saleem MD Consulting Physician Boaz GAGE MD HPI: Time Seen by a Provider: 12:50 Review of Systems-Cardiology All Other Systems Reviewed Negative Unless Noted: Yes CWI-Aiycwj-Jsgyva Hx Patient Social History Marrital Status: cohabiting Alcohol Use: Regular Use Recreational Drug Use: Yes Drug of Choice: THC AGE 18 Smoking Status: Current Everyday Smoker Type Used: Cigarettes (1.5 ppd) 2nd Hand Smoke Exposure: No Recent Foreign Travel: No Recent Infectious Disease Expo: No Past Medical History PMH As described under Assessment. Family Medical History Family History: Diabetes mellitus 19 FATHER Allergies and Home Medications Allergies Uncoded Allergies: yellow jacket (Allergy, Severe, Anaphylaxis, 04/10/19) has epi pen guinea wasp (Adverse Reaction, Severe, Anaphylaxis, 04/10/19) uses epi pen Home Medications Acetaminophen 500 Mg Tablet, 1,000 MG PO Q8H PRN for PAIN-MILD (1-4), (Reported) Amlodipine Besylate 5 Mg Tablet, 5 MG PO DAILY, (Reported) LAST FILLED 12-04-2019 #90 Atorvastatin Calcium 20 Mg Tablet, 20 MG PO HS, (Reported) LAST FILLED 12-04-2019 #90 Budesonide/Formoterol Fumarate 10.2 Gm Hfa.aer.ad, 2 PUFF IH BID PRN for SHORTNESS OF BREATH, (Reported) Cetirizine HCl 10 Mg Tablet, 10 MG PO DAILY PRN for ALLERGY SYMPTOMS, (Reported) Fluoxetine HCl 40 Mg Capsule, 40 MG PO DAILY, (Reported) LAST FILLED 02-10-2020 #60/60 DAY SUPPLY Hydroxyzine HCl 50 Mg Tablet, 50 MG PO HS, (Reported) LAST FILLED 03-27-2020 #30 Lisinopril 20 Mg Tablet, 20 MG PO DAILY, (Reported) LAST FILLED 12-04-2019 #90 Mag Hydrox/Aluminum Hyd/Simeth 355 Ml Oral.susp, 10 ML PO QID PRN for INDIGESTION, (Reported) Meloxicam 15 Mg Tablet, 15 MG PO DAILY, (Reported) Olanzapine 10 Mg Tablet, 10 MG PO HS, (Reported) Pantoprazole Sodium 40 Mg Tablet.dr, 40 MG PO DAILY, (Reported) LAST FILLED 11-07-2019 #90 Sucralfate 1 Gm Tablet, 1 GM PO QIDACHS PRN for GI UPSET, (Reported) Physical Exam-Cardiology Physical Exam Vital Signs/I&O 05/13/20 05/13/20 05/13/20 05/13/20 06:00 06:40 07:00 08:00 Pulse 89 82 85 84 Resp 19 14 14 B/P (MAP) 121/66 (84) 119/94 (102) 148/84 (105) Pulse Ox 93 95 95 O2 Delivery Room Air Room Air Room Air 05/13/20 05/13/20 05/13/20 05/13/20 08:00 09:00 09:00 09:56 Temp 36.4 Pulse 93 Resp 15 B/P (MAP) 145/83 (103) Pulse Ox 92 92 92 O2 Delivery Room Air Room Air Room Air O2 Flow Rate 0.00 05/13/20 05/13/20 05/13/20 05/13/20 10:00 11:00 12:00 12:00 Pulse 76 79 79 Resp 16 16 14 B/P (MAP) 139/88 (105) 144/103 (117) 151/88 (109) Pulse Ox 90 95 92 92 O2 Delivery Room Air Room Air Room Air Room Air 05/13/20 05/13/20 05/13/20 05/13/20 12:46 13:00 14:00 15:00 Pulse 86 75 81 74 Resp 12 16 17 B/P (MAP) 141/83 (102) 148/89 (108) 148/98 (115) Pulse Ox 94 97 94 O2 Delivery Room Air Room Air Room Air 05/13/20 05/13/20 15:22 16:00 Temp 36.4 Pulse 79 Pulse Ox 92 92 O2 Delivery Room Air 05/13/20 00:00 Intake Total 2000 ml Output Total 600 ml Balance 1400 ml Capillary Refill : Less Than 3 Seconds Data Review Labs Laboratory Tests 05/12/20 18:13: White Blood Count 8.7, Red Blood Count 4.47, Hemoglobin 15.1, Hematocrit 41, Mean Corpuscular Volume 92, Mean Corpuscular Hemoglobin 34, Mean Corpuscular Hemoglobin Concent 37H, Red Cell Distribution Width 12.9, Platelet Count 98L, Mean Platelet Volume 10.5H, Neutrophils (%) (Auto) 81H, Lymphocytes (%) (Auto) 12, Monocytes (%) (Auto) 6, Eosinophils (%) (Auto) 1, Basophils (%) (Auto) 0, Neutrophils # (Auto) 7.1, Lymphocytes # (Auto) 1.0, Monocytes # (Auto) 0.5, Eosinophils # (Auto) 0.0, Basophils # (Auto) 0.0, Prothrombin Time 12.2, INR Comment 0.9, Activated Partial Thromboplast Time 33, D-Dimer 0.94H, B-Type Natriuretic Peptide < 10.0 05/12/20 18:40: Erythrocyte Sedimentation Rate 4, Sodium Level 120*L, Potassium Level 3.5L, Chloride Level 82L, Carbon Dioxide Level 16L, Anion Gap 22H, Blood Urea Nitrogen 5L, Creatinine 0.73, Estimat Glomerular Filtration Rate > 60, BUN/Creatinine Ratio 7, Glucose Level 83, Calcium Level 8.0L, Corrected Calcium 8.2L, Magnesium Level 1.7, Total Bilirubin 0.8, Aspartate Amino Transf (AST/SGOT) 161H, Alanine Aminotransferase (ALT/SGPT) 160H, Alkaline Phosphatase 80, Lactate Dehydrogenase 224H, Myoglobin 69.9, Troponin I < 0.028, C-Reactive Protein High Sensitivity 4.04H, Total Protein 6.2L, Albumin 3.8, Lipase 24, Procalcitonin 0.21H, Serum Alcohol 114H 05/12/20 21:40: Urine Color YELLOW, Urine Clarity CLEAR, Urine pH 6.0, Urine Specific [place] <=1.005, Urine Protein NEGATIVE, Urine Glucose (UA) NEGATIVE, Urine Ketones 1+H, Urine Nitrite NEGATIVE, Urine Bilirubin NEGATIVE, Urine Urobilinogen 0.2, Urine Leukocyte Esterase NEGATIVE, Urine RBC (Auto) NEGATIVE, Urine RBC NONE, Urine WBC NONE, Urine Squamous Epithelial Cells 2-5, Urine Crystals NONE, Urine Bacteria NEGATIVE, Urine Casts NONE, Urine Mucus NEGATIVE, Urine Culture Indicated NO, Urine Opiates Screen POSITIVEH, Urine Oxycodone Screen NEGATIVE, Urine Methadone Screen NEGATIVE, Urine Propoxyphene Screen NEGATIVE, Urine Barbiturates Screen NEGATIVE, Ur Tricyclic Antidepressants Screen NEGATIVE, Urine Phencyclidine Screen NEGATIVE, Urine Amphetamines Screen NEGATIVE, Urine Methamphetamines Screen NEGATIVE, Urine Benzodiazepines Screen NEGATIVE, Urine Cocaine Screen NEGATIVE, Urine Cannabinoids Screen NEGATIVE 05/12/20 22:10: Troponin I < 0.028 05/13/20 03:35: White Blood Count 6.6, Red Blood Count 3.73L, Hemoglobin 12.5L, Hematocrit 35L, Mean Corpuscular Volume 93, Mean Corpuscular Hemoglobin 34, Mean Corpuscular Hemoglobin Concent 36, Red Cell Distribution Width 12.9, Platelet Count 88L, Mean Platelet Volume 10.5H, Neutrophils (%) (Auto) 77H, Lymphocytes (%) (Auto) 16, Monocytes (%) (Auto) 7, Eosinophils (%) (Auto) 0, Basophils (%) (Auto) 0, Neutrophils # (Auto) 5.1, Lymphocytes # (Auto) 1.1, Monocytes # (Auto) 0.4, Eosinophils # (Auto) 0.0, Basophils # (Auto) 0.0, Sodium Level 127L, Potassium Level 4.1, Chloride Level 95L, Carbon Dioxide Level 18L, Anion Gap 14, Blood Urea Nitrogen 5L, Creatinine 0.70, Estimat Glomerular Filtration Rate > 60, BU N/Creatinine Ratio 7, Glucose Level 81, Calcium Level 8.2L, Corrected Calcium 8.4L, Total Bilirubin 1.0, Aspartate Amino Transf (AST/SGOT) 109H, Alanine Aminotransferase (ALT/SGPT) 134H, Alkaline Phosphatase 73, Total Protein 5.8L, Albumin 3.7, Triglycerides Level 60, Cholesterol Level 177, LDL Cholesterol Direct 66, VLDL Cholesterol 12, HDL Cholesterol 97H A/P-Cardiology Assessment/Admission Diagnosis Chest pain, Active smoker Plan Active smoker with chest pain. Serial troponin negative. Nuclear stress test and echocardiogram is recommended. Thank you for your consultation. Please call me if you have any questions. Nicolle Gage MD, FACP, FACC, FSCAI, FHRS, CCDS Interventional Cardiology Cardiac Electrophysiology Vascular Medicine and Endovascular Interventions Clinical Quality Measures AMI/AHF: ASA po Prior to arrival: No DVT/VTE Risk/Contraindication: Risk Factor Score Per Nursin RFS Level Per Nursing on Admit: 1=Low/No VTE PPX Boaz GAGE MD May 13, 2020 15:41
--- NOTE | 2020-05-13 16:30 | NUR ---
PT TAKEN TO ROOM 423 VIA WHEELCHAIR. NO ACUTE CHANGES. NO NEW COMPLAINTS. VITALS REMAINED STABLE.
--- NOTE | 2020-05-13 16:57 | NUR ---
PATIENT TO FLOOR AT THIS TIME VIA W/ C FROM CARDIAC STEPDOWN ACCOMPANIED BY STEPDOWN STAFF AND PCT.
[2020-05-13] MEDS: LOPERAMIDE 2 MG (IMODIUM) TABLET PO PRN ×2 (19:48→19:50)
[2020-05-13] MEDS: RT-ALBUTEROL INHALER HFA (VENTOLIN HFA) 18 GM IH SCH (21:57)
[2020-05-14] MEDS: ENOXAPARIN 80 MG/0.8 ML (LOVENOX) SYR SC SCH ×2 (00:11→13:06)
[2020-05-14 00:12] VITALS: BP 166/85
[2020-05-14 04:00] VITALS: BP 180/95
[2020-05-14] MEDS: MULTIVIT W/MINERALS TAB (THERAGRAN M) PO SCH (05:26)
[2020-05-14] MEDS: THIAMINE 100 MG (VITAMIN B-1) TAB PO SCH (05:27)
[2020-05-14 06:31] LABS: BASOPHILS % (AUTO) 0 % (0-10); EOSINOPHILS % (AUTO) 1 % (0-10); HEMATOCRIT 36 % (40-54); HEMOGLOBIN 12.7 G/DL (13.3-17.7); LYMPHOCYTES # (AUTO) 1.3 X 10^3 (1.0-4.0); LYMPHOCYTES % (AUTO) 17 % (12-44); MEAN CORPUSCULAR HEMOGLOBIN 33 PG (25-34); MEAN CORPUSCULAR HGB CONC 35 G/DL (32-36); MEAN CORPUSCULAR VOLUME 95 FL (80-99); MONOCYTES # (AUTO) 0.5 X 10^3 (0.0-1.0); MONOCYTES % (AUTO) 7 % (0-12); NEUTROPHILS # (AUTO) 5.6 X 10^3 (1.8-7.8); NEUTROPHILS % (AUTO) 76 % (42-75); PLATELET COUNT 92 10^3/uL (130-400); RED CELL DISTRIBUTION WIDTH 12.8 % (10.0-14.5); WHITE BLOOD COUNT 7.5 10^3/uL (4.3-11.0)
[2020-05-14 06:38] LABS: ALBUMIN 3.9 GM/DL (3.2-4.5)
[2020-05-14 06:39] LABS: CHLORIDE 87 MMOL/L (98-107)
[2020-05-14 06:40] LABS: CALCIUM 8.6 MG/DL (8.5-10.1)
[2020-05-14 06:41] LABS: GLUCOSE 85 MG/DL (70-105); SODIUM 124 MMOL/L (135-145); TOTAL PROTEIN 6.1 GM/DL (6.4-8.2)
[2020-05-14 06:42] LABS: CARBON DIOXIDE 20 MMOL/L (21-32)
[2020-05-14 06:43] LABS: BILIRUBIN,TOTAL 0.9 MG/DL (0.1-1.0)
[2020-05-14 06:44] LABS: ALKALINE PHOSPHATASE 80 U/L (40-136)
[2020-05-14 06:45] LABS: CREATININE SERUM 0.58 MG/DL (0.60-1.30); GFR ESTIMATED > 60
[2020-05-14 06:46] LABS: BUN/CREATININE RATIO 5
[2020-05-14 06:47] LABS: ALANINE AMINOTRANSFERASE 109 U/L (0-55)
[2020-05-14] MEDS: RT-ALBUTEROL INHALER HFA (VENTOLIN HFA) 18 GM IH SCH (07:24)
[2020-05-14] MEDS: SENNA W/DOCUSATE (SENOKOT S) TABLET PO SCH (07:25)
[2020-05-14] MEDS: MAGNESIUM OXIDE (MAG-OX)400 MG TAB PO SCH (07:25)
[2020-05-14] MEDS: PANTOPRAZOLE 40 MG (PROTONIX) VIAL IV SCH (07:25)
[2020-05-14] MEDS: FOLIC ACID 1 MG TAB PO SCH (07:25)
[2020-05-14] MEDS: ASPIRIN E.C. 81 MG (ECOTRIN) TAB PO SCH (07:25)
[2020-05-14] MEDS: NS IV 1000 ML 1,000 ML IV SCH (07:26)
[2020-05-14 08:47] VITALS: BP 171/80
--- NOTE | 2020-05-14 11:29 | Progress Note - Hospitalist ---
Subjective HPI/CC On Admission Date Seen by Provider: May 14, 2020 Time Seen by Provider: 10:00 CC: SOB with alcoholism HPI: This is a 49yoWM clinic Pt of [facility] who has a PMH of extensive alcoholism who presents with SOB and intoxicated. It appears that he was on the verge of alcohol withdrawal so he was placed in the ICU. Fluid restricted for sodium level of 120 and was evaluated for a variety of sources of SOB but currently Pt feels much better and the priority is to discharge him prior to complete-floured alcohol withdrawal. He has plans to get treatment for alcoholism in one month. His COVID swab is pending. Subjective/Events-last exam Pt still waiting for Covid swab results Echo and stress test will be done by cardiology once that is done No pain is reported No alcoholic withdrawal seizure is noted Severe low potassium giving aggressive supplement for Review of Systems General: Fatigue, Malaise Objective Exam Vital Signs Vital Signs Date Time Temp Pulse Resp B/P (MAP) Pulse Ox O2 Delivery O2 Flow Rate FiO2 05/14/20 14:58 36.2 80 20 165/90 (115) 97 Room Air 05/14/20 04:00 0.00 05/12/20 23:55 21 Capillary Refill : Less Than 3 SecondsLess Than 3 Seconds General Appearance: No Apparent Distress, WD/WN Respiratory: Chest Non Tender, Lungs Clear, Normal Breath Sounds, No Accessory Muscle Use, No Respiratory Distress Cardiovascular: Regular Rate, Rhythm, No Edema, No Gallop, No JVD, No Murmur, Normal Peripheral Pulses Neurologic/Psychiatric: Alert, Oriented x3, No Motor/Sensory Deficits, Normal Mood/Affect Results/Procedures Lab Laboratory Tests 05/14/20 05:42 Patient resulted labs reviewed. Assessment/Plan Assessment and Plan Assess & Plan/Chief Complaint Assessment: Dyspnea Hyponatremia COPD Alcohol use Smoking Chest pain Alcoholism Covid swab pending Hypokalemia Plan: Discharge home when ok with cardiology and pulmonology before alcohol withdrawal occurs Fluid restriction COVID swab pending Cardiology appreciated Replace potassium Diagnosis/Problems Diagnosis/Problems (1) Hyponatremia Status: Acute (2) Chest pain Status: Acute (3) Elevated LFTs Status: Acute (4) Alcohol withdrawal Status: Acute (5) HTN (hypertension) Status: Chronic (6) Alcohol abuse Clinical Quality Measures AMI/AHF: ASA po Prior to arrival: No DVT/VTE Risk/Contraindication: Risk Factor Score Per Nursin RFS Level Per Nursing on Admit: 1=Low/No VTE PPX NHI FAJARDO DO May 14, 2020 11:29
[2020-05-14] MEDS ORDERED: KCL 20 MEQ TAB (K-DUR) PO ONE ×2 (11:30→13:30)
[2020-05-14 14:58] VITALS: BP 165/90
--- NOTE | 2020-05-14 17:18 | NUR ---
staff alerted this nurse that patient was in the [address] threatening to leave, patient informed this nurse that had spoke with Dr. Zainab Saleem and has appointment this evening to leave hospital and go to see her office , this nurse called [facility] staff notified this nurse that Dr. Zainab Saleem was not seeing patient its after hours 1700 + she was in a meeting , updated that patient sodium was low and was PUI at the hospital results still pending - patient was informed the risks of leaving against medical advice, but he stated he understands the risk, his leaving against medical advice - patient signed AMA paper
--- NOTE | 2020-05-14 17:34 | NUR ---
Dr. Esquivel notified
--- NOTE | 2020-05-14 18:46 | Cardiology Progress Note ---
Cardiology SOAP Progress Note Objective: I&O/Vital Signs 05/14/20 05/14/20 05/14/20 05/14/20 07:24 08:00 08:47 09:00 Temp 36.5 Pulse 79 Resp 20 B/P (MAP) 171/80 (110) Pulse Ox 97 97 96 97 O2 Delivery Room Air Room Air Room Air Room Air 05/14/20 05/14/20 12:00 14:58 Temp 36.2 Pulse 80 Resp 20 B/P (MAP) 165/90 (115) Pulse Ox 97 O2 Delivery Room Air Room Air 05/14/20 00:00 Intake Total 800 ml Output Total 1400 ml Balance -600 ml Weight (Pounds): 150 Weight (Ounces): 4.0 Weight (Calculated Kilograms): 68.195952 Results/Procedures: Labs Laboratory Tests 05/14/20 05:42: White Blood Count 7.5, Red Blood Count 3.82L, Hemoglobin 12.7L, Hematocrit 36L, Mean Corpuscular Volume 95, Mean Corpuscular Hemoglobin 33, Mean Corpuscular Hemoglobin Concent 35, Red Cell Distribution Width 12.8, Platelet Count 92L, Mean Platelet Volume 11.0H, Neutrophils (%) (Auto) 76H, Lymphocytes (%) (Auto) 17, Monocytes (%) (Auto) 7, Eosinophils (%) (Auto) 1, Basophils (%) (Auto) 0, Neutrophils # (Auto) 5.6, Lymphocytes # (Auto) 1.3, Monocytes # (Auto) 0.5, Eosinophils # (Auto) 0.0, Basophils # (Auto) 0.0, Sodium Level 124*L, Potassium Level 3.0L, Chloride Level 87L, Carbon Dioxide Level 20L, Anion Gap 17H, Blood Urea Nitrogen 3L, Creatinine 0.58L, Estimat Glomerular Filtration Rate > 60, BUN/Creatinine Ratio 5, Glucose Level 85, Calcium Level 8.6, Corrected Calcium 8.7, Total Bilirubin 0.9, Aspartate Amino Transf (AST/SGOT) 71H, Alanine Aminotransferase (ALT/SGPT) 109H, Alkaline Phosphatase 80, Total Protein 6.1L, Albumin 3.9 A/P: Assessment/Dx: Chest pain, Active smoker Plan: Active smoker with chest pain. Serial troponin negative. Nuclear stress test and echocardiogram is recommended. Thank you for your consultation. Please call me if you have any questions. Nicolle Gage MD, FACP, FACC, FSCAI, FHRS, CCDS Interventional Cardiology Cardiac Electrophysiology Vascular Medicine and Endovascular Interventions Clinical Quality Measures AMI/AHF: ASA po Prior to arrival: Boaz Renee MD May 14, 2020 18:46
--- NOTE | 2020-05-14 20:46 | Discharge Summary ---
Discharge Summary Hospital Course Was the Problem List Reviewed?: Yes Problems/Dx: (1) Hyponatremia Status: Acute (2) Chest pain Status: Acute (3) Elevated LFTs Status: Acute (4) Alcohol withdrawal Status: Acute (5) HTN (hypertension) Status: Chronic (6) Alcohol abuse Hospital Course Date of Admission: May 12, 2020 at 18:50 Admission Diagnosis : Family Physician/Provider: Zainab Saleem MD Date of Discharge: 05/14/20 Discharge Diagnosis: chest pain, hyponatremia, hypokalemia, left AMA prior to cardiac w/u Hospital Course: Patient had a short course after swabbed for COVID-19 he was placed in ICU due to hyponatremia of 120 and high risk for seizure from etoh withdrawal. Cardiology evaluated the patient to need cardiac risk factor stratification so he was kept another day and OVID swab was still not completed and patient became agitated and left AMA prior to testing. Labs and Pending Lab Test: Laboratory Tests 05/14/20 05:42: White Blood Count 7.5, Red Blood Count 3.82L, Hemoglobin 12.7L, Hematocrit 36L, Mean Corpuscular Volume 95, Mean Corpuscular Hemoglobin 33, Mean Corpuscular Hemoglobin Concent 35, Red Cell Distribution Width 12.8, Platelet Count 92L, Mean Platelet Volume 11.0H, Neutrophils (%) (Auto) 76H, Lymphocytes (%) (Auto) 17, Monocytes (%) (Auto) 7, Eosinophils (%) (Auto) 1, Basophils (%) (Auto) 0, Neutrophils # (Auto) 5.6, Lymphocytes # (Auto) 1.3, Monocytes # (Auto) 0.5, Eosinophils # (Auto) 0.0, Basophils # (Auto) 0.0, Sodium Level 124*L, Potassium Level 3.0L, Chloride Level 87L, Carbon Dioxide Level 20L, Anion Gap 17H, Blood Urea Nitrogen 3L, Creatinine 0.58L, Estimat Glomerular Filtration Rate > 60, BUN/Creatinine Ratio 5, Glucose Level 85, Calcium Level 8.6, Corrected Calcium 8.7, Total Bilirubin 0.9, Aspartate Amino Transf (AST/SGOT) 71H, Alanine Aminotransferase (ALT/SGPT) 109H, Alkaline Phosphatase 80, Total Protein 6.1L, Albumin 3.9 Home Meds Active Reported Hydroxyzine HCl 50 Mg Tablet 50 Mg PO HS LAST FILLED 05-28-2020 #30 Mylanta Maximum Strength Liq (Mag Hydrox/Aluminum Hyd/Simeth) 355 Ml Oral.susp 10 Ml PO QID PRN Zyrtec (Cetirizine HCl) 10 Mg Tablet 10 Mg PO DAILY PRN Tylenol Extra Strength (Acetaminophen) 500 Mg Tablet 1,000 Mg PO Q8H PRN Symbicort 160-4.5 Mcg Inhaler (Budesonide/Formoterol Fumarate) 10.2 Gm Hfa.aer.ad 2 Puff IH BID PRN Olanzapine 10 Mg Tablet 10 Mg PO HS Amlodipine Besylate 5 Mg Tablet 5 Mg PO DAILY LAST FILLED 12-04-2019 #90 Carafate (Sucralfate) 1 Gm Tablet 1 Gm PO QIDACHS PRN Meloxicam 15 Mg Tablet 15 Mg PO DAILY Lisinopril 20 Mg Tablet 20 Mg PO DAILY LAST FILLED 12-04-2019 #90 Protonix (Pantoprazole Sodium) 40 Mg Tablet.dr 40 Mg PO DAILY LAST FILLED 11-07-2019 #90 Prozac (Fluoxetine HCl) 40 Mg Capsule 40 Mg PO DAILY LAST FILLED 02-10-2020 #60/60 DAY SUPPLY Lipitor (Atorvastatin Calcium) 20 Mg Tablet 20 Mg PO HS LAST FILLED 12-04-2019 #90 Assessment/Pt Instructions Left AMA Discharge Planning: <30 minutes discharge planning Discharge Instructions Pneumonia Vaccine Order Indica: Yes Discharge Physical Examination Vital Signs Vital Signs Date Time Temp Pulse Resp B/P (MAP) Pulse Ox O2 Delivery O2 Flow Rate FiO2 05/14/20 14:58 36.2 80 20 165/90 (115) 97 Room Air 05/14/20 04:00 0.00 05/12/20 23:55 21 General Appearance: No Apparent Distress, WD/WN, Chronically ill Allergies: Uncoded Allergies: yellow jacket (Allergy, Severe, Anaphylaxis, 04/10/19) has epi pen guinea wasp (Adverse Reaction, Severe, Anaphylaxis, 04/10/19) uses epi pen Discharge Summary Date of Admission May 12, 2020 at 18:50 Date of Discharge May 14, 2020 at 17:34 Discharge Date: May 13, 2020 Admission Diagnosis Assessment: Dyspnea Hyponatremia COPD Alcohol use Smoking Plan: Discharge home when ok with cardiology and pulmonology before alcohol withdrawal occurs Fluid restriction Discharge Diagnosis Assessment: Dyspnea Hyponatremia COPD Alcohol use Smoking Chest pain Alcoholism Covid swab pending Hypokalemia Plan: Discharge home when ok with cardiology and pulmonology before alcohol withdrawal occurs Fluid restriction COVID swab pending Cardiology appreciated Replace potassium (1) Hyponatremia Status: Acute (2) Chest pain Status: Acute (3) Elevated LFTs Status: Acute (4) Alcohol withdrawal Status: Acute (5) HTN (hypertension) Status: Chronic (6) Alcohol abuse Clinical Quality Measures AMI/AHF: ASA po Prior to arrival: No DVT/VTE Risk/Contraindication: Risk Factor Score Per Nursin RFS Level Per Nursing on Admit: 1=Low/No VTE PPX NHI FAJARDO DO May 14, 2020 20:46
== END 2020-05-14 17:34 | disposition left against medical advice (07) | DRG 641 ==
LOC: EDUNIT# 17:46 → ER 17:47 → ICU 18:50 → 4TH 05-13 16:23
PROVIDERS: ADMIT Internal Medicine; ATTEND Internal Medicine
DX: E87.1 Hypo-osmolality and hyponatremia (principal); F10.20 Alcohol dependence, uncomplicated; E87.2 Acidosis; J44.9 Chronic obstructive pulmonary disease, unspecified; F17.210 Nicotine dependence, cigarettes, uncomplicated; E86.0 Dehydration; R07.9 Chest pain, unspecified; R06.00 Dyspnea, unspecified
CPT/HCPCS: 36415; 71045; 71275; 74177; 80053; 80061; 80306; 80320; 81000; 83615; 83690; 83735; 83874; 83880; 84145; 84484; 85025; 85379; 85610; 85652; 85730; 86141; 87635; 93005; 93041; 94760

== ENCOUNTER 2020-05-23 03:49 | Emergency (ER) | payer OTHER ==
[~2020-05-23] VITALS: Ht 175 cm; Wt 80.0 kg
[~2020-05-23 03:49] MED LIST changes: +HYDR50TA76 PO; +MAG-141 PO
[2020-05-23 04:20] LABS: BASOPHILS % (AUTO) 0 % (0-10); EOSINOPHILS % (AUTO) 1 % (0-10); HEMATOCRIT 39 % (40-54); HEMOGLOBIN 13.4 G/DL (13.3-17.7); LYMPHOCYTES # (AUTO) 2.3 X 10^3 (1.0-4.0); LYMPHOCYTES % (AUTO) 41 % (12-44); MEAN CORPUSCULAR HEMOGLOBIN 33 PG (25-34); MEAN CORPUSCULAR HGB CONC 35 G/DL (32-36); MEAN CORPUSCULAR VOLUME 97 FL (80-99); MEAN PLATELET VOLUME 8.9 FL (7.4-10.4); MONOCYTES # (AUTO) 0.4 X 10^3 (0.0-1.0); MONOCYTES % (AUTO) 8 % (0-12); NEUTROPHILS # (AUTO) 2.9 X 10^3 (1.8-7.8); NEUTROPHILS % (AUTO) 51 % (42-75); PLATELET COUNT 248 10^3/uL (130-400); RED CELL DISTRIBUTION WIDTH 13.3 % (10.0-14.5); WHITE BLOOD COUNT 5.7 10^3/uL (4.3-11.0)
[2020-05-23 04:25] LABS: ALBUMIN 3.8 GM/DL (3.2-4.5); CHLORIDE 95 MMOL/L (98-107); POTASSIUM 4.2 MMOL/L (3.6-5.0); SODIUM 129 MMOL/L (135-145)
[2020-05-23 04:28] LABS: GLUCOSE 123 MG/DL (70-105); TOTAL PROTEIN 6.1 GM/DL (6.4-8.2)
[2020-05-23 04:29] LABS: BILIRUBIN,TOTAL 0.3 MG/DL (0.1-1.0); CARBON DIOXIDE 18 MMOL/L (21-32)
[2020-05-23 04:31] LABS: ALKALINE PHOSPHATASE 76 U/L (40-136); CREATININE SERUM 0.67 MG/DL (0.60-1.30); GFR ESTIMATED > 60
[2020-05-23 04:32] LABS: BUN/CREATININE RATIO 6
[2020-05-23 04:34] LABS: ALANINE AMINOTRANSFERASE 32 U/L (0-55)
[2020-05-23] MEDS ORDERED: NS IV 1000 ML 1,000 ML IV SCH (04:43)
--- NOTE | 2020-05-23 05:13 | ED Neurological Problem ---
General Chief Complaint: Neurological Problems Stated Complaint: SEIZURE Nursing Triage Note: Pt to [facility] via [facility] with c/o seizure activity. Pt has Hx of seizures, does not take any meds for them. EMS reports pt hit head when falling to the ground, pt denies head/neck/back pain. Pt has no reports of pain on arrival, just c/o being tired. Pt is A&O x 4 on arrival. Nursing Sepsis Screen: No Definite Risk Source: patient Exam Limitations: no limitations History of Present Illness Date Seen by Provider: May 23, 2020 Time Seen by Provider: 03:51 Initial Comments This 49-year-old man presents to the emergency room via EMS with reports of seizure-like activity. Apparently he collapsed in the home and had convulsions. He struck his face during the fall and has epistaxis. He also has swelling and pain to the right foot from a fall a few days ago. He has nontender bruising to the right abdomen, and he does not know how that occurred. He consumes alcohol heavily on a daily basis. He was recently admitted for chest pain and developed alcohol withdrawal. He left the hospital AGAINST MEDICAL ADVICE. Patient was hypotensive for EMS on their arrival with a blood pressure of 53/45. After approximately 200 mL of normal saline his blood pressure improved to 105/70. Fingerstick blood sugar was 91. Patient has been incontinent of stool. Patient was recently admitted May 12- for chest pain and left AGAINST MEDICAL ADVICE. Allergies and Home Medications Allergies Uncoded Allergies: yellow jacket (Allergy, Severe, Anaphylaxis, 04/10/19) has epi pen guinea wasp (Adverse Reaction, Severe, Anaphylaxis, 04/10/19) uses epi pen Home Medications Acetaminophen 500 Mg Tablet, 1,000 MG PO Q8H PRN for PAIN-MILD (1-4), (Reported) Amlodipine Besylate 5 Mg Tablet, 5 MG PO DAILY, (Reported) LAST FILLED 12-04-2019 #90 Atorvastatin Calcium 20 Mg Tablet, 20 MG PO HS, (Reported) LAST FILLED 12-04-2019 #90 Budesonide/Formoterol Fumarate 10.2 Gm Hfa.aer.ad, 2 PUFF IH BID PRN for SHORTNESS OF BREATH, (Reported) Cetirizine HCl 10 Mg Tablet, 10 MG PO DAILY PRN for ALLERGY SYMPTOMS, (Reported) Fluoxetine HCl 40 Mg Capsule, 40 MG PO DAILY, (Reported) LAST FILLED 02-10-2020 #60/60 DAY SUPPLY Hydroxyzine HCl 50 Mg Tablet, 50 MG PO HS, (Reported) LAST FILLED 03-27-2020 #30 Lisinopril 20 Mg Tablet, 20 MG PO DAILY, (Reported) LAST FILLED 12-04-2019 #90 Mag Hydrox/Aluminum Hyd/Simeth 355 Ml Oral.susp, 10 ML PO QID PRN for INDIGESTION, (Reported) Meloxicam 15 Mg Tablet, 15 MG PO DAILY, (Reported) Olanzapine 10 Mg Tablet, 10 MG PO HS, (Reported) Pantoprazole Sodium 40 Mg Tablet.dr, 40 MG PO DAILY, (Reported) LAST FILLED 11-07-2019 #90 Sucralfate 1 Gm Tablet, 1 GM PO QIDACHS PRN for GI UPSET, (Reported) Patient Home Medication List Home Medication List Reviewed: Yes Review of Systems Review of Systems Constitutional: see HPI Eyes: No Symptoms Reported Ears, Nose, Mouth, Throat: see HPI Respiratory: no symptoms reported Cardiovascular: see HPI Gastrointestinal: see HPI Genitourinary: no symptoms reported Musculoskeletal: no symptoms reported Skin: no symptoms reported Psychiatric/Neurological: See HPI Endocrine: No Symptoms Reported Hematologic/Lymphatic: No Symptoms Reported Past Fgrbvty-Oktkkv-Pyrcbj Hx Past Med/Social Hx: Reviewed Nursing Past Med/Soc Hx Patient Social History Alcohol Use: Regular Use Number of Drinks Today: AA Alcohol Beverage of Choice: Beer Recreational Drug Use: Yes Drug of Choice: THC AGE 18 Smoking Status: Current Everyday Smoker Type Used: Cigarettes 2nd Hand Smoke Exposure: No Recent Foreign Travel: No Contact w/Someone Who Travel: No Recent Infectious Disease Expo: No Recent Hopitalizations: No Seasonal Allergies Seasonal Allergies: No Past Medical History Surgeries: Yes (LEFT INGUINAL HERNIA REPAIRL RIGHT WRIST FX/ORIF) Abdominal, Orthopedic Respiratory: Yes COPD Cardiac: Yes High Cholesterol, Hypertension Neurological: Yes (MEMORY IMPAIRMENT;ETOH WITHDRAWL SEIZURE 03/06/20;DT'S/HALLUCINATIONS ) Seizure Disorder Genitourinary: Yes Prostate Problems Gastrointestinal: Yes (LEFT INGUINAL HERNIA REPAIR;ELEVATED LFT'S 03/06/20) Abdominal Hernia, Gastroesophageal Reflux Musculoskeletal: Yes (RIGHT WRIST FX/ORIF) Fractures Endocrine: No HEENT: No Cancer: No Psychosocial: Yes (ALCOHOLISM;DT'S WITH HALLUCINATIONS 03/2019;WITHDRAWL SEIZURE 03/06/2020) Anxiety, Bipolar, Depression Integumentary: No Blood Disorders: No Family Medical History Reviewed Nursing Family Hx Diabetes mellitus 19 FATHER No Pertinent Family Hx Physical Exam Vital Signs Vital Signs - First Documented 05/23/20 03:58 Temp 36.7 Pulse 82 Resp 19 B/P (MAP) 105/69 (81) Pulse Ox 95 O2 Delivery Room Air Capillary Refill : Less Than 3 Seconds Height, Weight, BMI Height: 5'8.00" Weight: 150lbs. 4.0oz. 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 Disoriented to month and year) Crainal Nerves: normal hearing, normal speech, PERRL Motor/Sensory: no motor deficit, no sensory deficit Skin: normal color, warm/dry Progress/Results/Core Measures Results/Orders Lab Results Laboratory Tests Test 05/23/20 04:07 05/23/20 05:20 Range/Units White Blood Count 5.7 4.3-11.0 10^3/uL Red Blood Count 4.02 L 4.35-5.85 10^6/uL Hemoglobin 13.4 13.3-17.7 G/DL Hematocrit 39 L 40-54 % Mean Corpuscular Volume 97 80-99 FL Mean Corpuscular Hemoglobin 33 25-34 PG Mean Corpuscular Hemoglobin Concent 35 32-36 G/DL Red Cell Distribution Width 13.3 10.0-14.5 % Platelet Count 248 130-400 10^3/uL Mean Platelet Volume 8.9 7.4-10.4 FL Neutrophils (%) (Auto) 51 42-75 % Lymphocytes (%) (Auto) 41 12-44 % Monocytes (%) (Auto) 8 0-12 % Eosinophils (%) (Auto) 1 0-10 % Basophils (%) (Auto) 0 0-10 % Neutrophils # (Auto) 2.9 1.8-7.8 X 10^3 Lymphocytes # (Auto) 2.3 1.0-4.0 X 10^3 Monocytes # (Auto) 0.4 0.0-1.0 X 10^3 Eosinophils # (Auto) 0.0 0.0-0.3 10^3/uL Basophils # (Auto) 0.0 0.0-0.1 10^3/uL Sodium Level 129 L 135-145 MMOL/L Potassium Level 4.2 3.6-5.0 MMOL/L Chloride Level 95 L 98-107 MMOL/L Carbon Dioxide Level 18 L 21-32 MMOL/L Anion Gap 16 H 5-14 MMOL/L Blood Urea Nitrogen 4 L 7-18 MG/DL Creatinine 0.67 0.60-1.30 MG/DL Estimat Glomerular Filtration Rate > 60 BUN/Creatinine Ratio 6 Glucose Level 123 H 70-105 MG/DL Calcium Level 8.0 L 8.5-10.1 MG/DL Corrected Calcium 8.2 L 8.5-10.1 MG/DL Magnesium Level 2.0 1.6-2.4 MG/DL Total Bilirubin 0.3 0.1-1.0 MG/DL Aspartate Amino Transf (AST/SGOT) 27 5-34 U/L Alanine Aminotransferase (ALT/SGPT) 32 0-55 U/L Alkaline Phosphatase 76 40-136 U/L Troponin I < 0.028 <0.028 NG/ML Total Protein 6.1 L 6.4-8.2 GM/DL Albumin 3.8 3.2-4.5 GM/DL Serum Alcohol 338 *H <10 MG/DL Urine Color YELLOW Urine Clarity CLEAR Urine pH 5.5 5-9 Urine Specific Scar[place] 1.015 L 1.016-1.022 Urine Protein NEGATIVE NEGATIVE Urine Glucose (UA) NEGATIVE NEGATIVE Urine Ketones TRACE H NEGATIVE Urine Nitrite NEGATIVE NEGATIVE Urine Bilirubin NEGATIVE NEGATIVE Urine Urobilinogen 0.2 < = 1.0 MG/DL Urine Leukocyte Esterase NEGATIVE NEGATIVE Urine RBC (Auto) NEGATIVE NEGATIVE Urine RBC NONE /HPF Urine WBC NONE /HPF Urine Squamous Epithelial Cells RARE /HPF Urine Crystals NONE /LPF Urine Bacteria NEGATIVE /HPF Urine Casts PRESENT /LPF Urine Hyaline Casts 2-5 H /LPF Urine Mucus SMALL H /LPF Urine Culture Indicated NO Urine Opiates Screen NEGATIVE NEGATIVE Urine Oxycodone Screen NEGATIVE NEGATIVE Urine Methadone Screen NEGATIVE NEGATIVE Urine Propoxyphene Screen NEGATIVE NEGATIVE Urine Barbiturates Screen NEGATIVE NEGATIVE Ur Tricyclic Antidepressants Screen NEGATIVE NEGATIVE Urine Phencyclidine Screen NEGATIVE NEGATIVE Urine Amphetamines Screen NEGATIVE NEGATIVE Urine Methamphetamines Screen NEGATIVE NEGATIVE Urine Benzodiazepines Screen NEGATIVE NEGATIVE Urine Cocaine Screen NEGATIVE NEGATIVE Urine Cannabinoids Screen NEGATIVE NEGATIVE My Orders Orders - LORI CANCHOLA MD Ct Head/Face/Cervical Wo (05/23/20 03:59) Alcohol (05/23/20 03:59) Cbc With Automated Diff (05/23/20 03:59) Comprehensive Metabolic Panel (05/23/20 03:59) Drug Screen Stat (Urine) (05/23/20 03:59) Magnesium (05/23/20 03:59) Ua Culture If Indicated (05/23/20 03:59) Foot, Right, 3 View (05/23/20 04:00) Ekg Tracing (05/23/20 04:06) Monitor-Rhythm Ecg Trace Only (05/23/20 04:06) Troponin I (05/23/20 04:06) Ns Iv 1000 Ml (Sodium Chloride 0.9%) (05/23/20 04:43) Vital Signs/I&O 05/23/20 05/23/20 03:58 05:52 Temp 36.7 36.7 Pulse 82 82 Resp 19 19 B/P (MAP) 105/69 (81) 124/73 (81) Pulse Ox 95 96 O2 Delivery Room Air Room Air Blood Pressure Mean: 81 Progress Progress Note : Progress Note Patient was found to have a Neely fracture of the right foot. He was placed in a boot. He declined crutches. Prescription for wheelchair was given. His mental status improved and he was able to ambulate around the unit independently. He walked bathroom despite being told not to walk on his foot until the boot was in place. He received a liter of IV fluids by EMS along with a 1 L normal saline bolus in the emergency room. Vital signs were stable. Initial ECG Impression Date: May 23, 2020 Initial ECG Impression Time: 04:02 Initial ECG Rate: 87 Initial ECG Rhythm: Normal Sinus Initial ECG Intervals: Normal Comment Sinus rhythm with no ischemic ST elevation or depression. There is early repolarization along with artifact. No axis deviation or abnormal intervals. Diagnostic Imaging Diagonstic Imaging: Xray Plain Films/CT/US/NM/MRI: other (right foot) Comments Right foot x-ray viewed by me. Report not yet available. There is a Neely fracture of the proximal right metatarsal. The fracture is comminuted and nondisplaced. Diagonstic Imaging: CT Plain Films/CT/US/NM/MRI: facial bones, c-spine, head Comments CT head, face and cervical spine viewed by me and report reviewed. See report below: NAME: CHARLIE JOHNSON [facility] REC#: [id number] PT STATUS: REG ER : 1970 PHYSICIAN: LORI CANCHOLA MD ADMIT DATE: 05/23/20/ER Draft Date of Exam:05/23/20 CT HEAD/FACE/CERVICAL WO PROCEDURE: CT head, face, and cervical spine without contrast. TECHNIQUE: Multiple contiguous axial images were obtained through the head, neck, and facial bones without the use of intravenous contrast. Sagittal and coronal reformations through the cervical spine and facial bones were also performed. Auto Exposure Controls were utilized during the CT exam to meet ALARA standards for radiation dose reduction. INDICATION: Seizure. Fall. COMPARISON: 04/08/2020. FINDINGS: CT head: Please note some images are limited due to patient motion. The ventricles and cortical sulci are age-appropriate. There is no midline shift or mass-effect. No acute intracranial hemorrhage is seen. There is no CT evidence of acute territorial ischemia. No focal masses or collections are present. The calvarium is intact. CT face: No acute facial fractures are visualized. The mandible, zygomatic arches, and pterygoid plates are intact. The bilateral TMJ demonstrate normal articulation. No nasal bone fractures. The bony nasal septum is deviated to the right without fracture. Retained secretions are seen in the antrum of the left maxillary sinus. The mastoid air cells are well pneumatized. The globes and orbits are symmetric and unremarkable. No evidence of orbital rim fracture. CT cervical spine: No acute fracture or dislocation is seen in the cervical spine. No focal osseous lesions. There is straightening of the cervical spine. Vertebral body heights are well-maintained. The craniocervical junction is well-maintained. Multilevel degenerative changes are seen in the cervical spine with disc osteophyte complexes and uncovertebral arthropathy. Soft tissues of the neck are unremarkable. The included lung apices are clear. IMPRESSION: 1. No hemorrhage or focal intra-axial mass. No CT evidence of large acute territorial ischemia. 2. No acute fracture or dislocation in the cervical spine. 3. No acute facial fractures. Dictated on workstation # [id number] Dict: 05/23/20521 Trans: 05/23/20528 [id number] Interpreted by: INES DUPREE DO Departure Impression Primary Impression: Neely fracture Qualified Codes: S99.191A - Other physeal fracture of right metatarsal, initial encounter for closed fracture Additional Impressions: Seizure-like activity Alcohol intoxication Qualified Codes: F10.929 - Alcohol use, unspecified with intoxication, unspecified Fall on same level Qualified Codes: W18.30XA - Fall on same level, unspecified, initial encounter Minor head injury Qualified Codes: S09.90XA - Unspecified injury of head, initial encounter Disposition: 01 HOME, SELF-CARE Condition: Improved Departure-Patient Inst. Referrals: CARLOS CALDWELL MD, JULIE A MD (PCP/Family) Primary Care Physician MURALI YANEZ MD Patient Instructions: Alcohol Abuse and Alcoholism (DC), Foot Fracture (DC) Add. Discharge Instructions: Do not bear weight on your right foot. Use crutches or wheelchair as necessary for mobility. Leave the boot on his much as possible. Follow-up with an orthopedic provider such as Dr. Yanez or Dr. Caldwell as soon as possible. Follow-up with your primary care provider soon as possible. Do not abruptly stop drinking alcohol. You need to gradually taper down. Abrupt cessation of alcohol may cause life-threatening seizures. All discharge instructions reviewed with patient and/or family. Voiced unders tanding. Scripts [Wheelchair] No Conflict Check EXT NEEDED, #1 Prov: LORI CANCHOLA MD 05/23/20 Copy Copies To 1: LISA EDWARDS MD, JOSHUA T MD May 23, 2020 05:13
[2020-05-23 05:29] LABS: BILIRUBIN,URINE NEGATIVE (NEGATIVE); CLARITY,URINE CLEAR; COLOR,URINE YELLOW; GLUCOSE, URINE (UA) NEGATIVE (NEGATIVE); KETONES,URINE TRACE (NEGATIVE); LEUKOCYTE ESTERASE ,URINE NEGATIVE (NEGATIVE); NITRITE,URINE NEGATIVE (NEGATIVE); PH,URINE 5.5 (5-9); PROTEIN,URINE NEGATIVE (NEGATIVE)
[2020-05-23] MEDS ORDERED: Wheelchair EXT (05:29)
--- NOTE | 2020-05-23 05:30 | Diagnostic Imaging Report ---
PROCEDURE: CT head, face, and cervical spine without contrast. TECHNIQUE: Multiple contiguous axial images were obtained through the head, neck, and facial bones without the use of intravenous contrast. Sagittal and coronal reformations through the cervical spine and facial bones were also performed. Auto Exposure Controls were utilized during the CT exam to meet ALARA standards for radiation dose reduction. INDICATION: Seizure. Fall. COMPARISON: 04/08/2020. FINDINGS: CT head: Please note some images are limited due to patient motion. The ventricles and cortical sulci are age-appropriate. There is no midline shift or mass-effect. No acute intracranial hemorrhage is seen. There is no CT evidence of acute territorial ischemia. No focal masses or collections are present. The calvarium is intact. CT face: No acute facial fractures are visualized. The mandible, zygomatic arches, and pterygoid plates are intact. The bilateral TMJ demonstrate normal articulation. No nasal bone fractures. The bony nasal septum is deviated to the right without fracture. Retained secretions are seen in the antrum of the left maxillary sinus. The mastoid air cells are well pneumatized. The globes and orbits are symmetric and unremarkable. No evidence of orbital rim fracture. CT cervical spine: No acute fracture or dislocation is seen in the cervical spine. No focal osseous lesions. There is straightening of the cervical spine. Vertebral body heights are well-maintained. The craniocervical junction is well-maintained. Multilevel degenerative changes are seen in the cervical spine with disc osteophyte complexes and uncovertebral arthropathy. Soft tissues of the neck are unremarkable. The included lung apices are clear. IMPRESSION: 1. No hemorrhage or focal intra-axial mass. No CT evidence of large acute territorial ischemia. 2. No acute fracture or dislocation in the cervical spine. 3. No acute facial fractures. Dictated by: Dictated on workstation # [id number]
[2020-05-23 05:52] VITALS: BP 124/73
[2020-05-23 06:11] LABS: BACTERIA,URINE NEGATIVE /HPF; SQUAMOUS EPITHELIAL CELL,UR RARE /HPF
[2020-05-23 06:36] LABS: AMPHETAMINE SCREEN, URINE NEGATIVE (NEGATIVE); BARBITURATE SCREEN URINE NEGATIVE (NEGATIVE); BENZODIAZEPINES SCREEN URINE NEGATIVE (NEGATIVE); CANNABINOID SCREEN, URINE NEGATIVE (NEGATIVE); COCAINE SCREEN URINE NEGATIVE (NEGATIVE); METHADONE STAT NEGATIVE (NEGATIVE); METHAMPHETAMINE SCREEN URINE S NEGATIVE (NEGATIVE); OPIATE SCREEN URINE NEGATIVE (NEGATIVE); OXYCODONE STAT NEGATIVE (NEGATIVE); PROPOXYPHENE STAT NEGATIVE (NEGATIVE); TRICYCLIC ANTIDEPRESSANTS SCRE NEGATIVE (NEGATIVE)
--- NOTE | 2020-05-23 06:50 | Diagnostic Imaging Report ---
Indication: Right foot pain 3 views the right foot show a nondisplaced avulsion fracture of the base of the 5th metatarsal. IMPRESSION: Avulsion fracture base of the 5th metatarsal. Dictated by: Dictated on workstation # [id number]
== END 2020-05-23 05:57 | disposition home or self-care (01) ==
LOC: EDUNIT# 03:49 → ER 03:51
DX: S09.90XA Unspecified injury of head, initial encounter (principal); S92.354A Nondisplaced fracture of fifth metatarsal bone, right foot, initial encounter for closed fracture; S30.1XXA Contusion of abdominal wall, initial encounter; R29.818 Other symptoms and signs involving the nervous system; F10.229 Alcohol dependence with intoxication, unspecified; I10 Essential (primary) hypertension; E78.00 Pure hypercholesterolemia, unspecified; J44.9 Chronic obstructive pulmonary disease, unspecified; K21.9 Gastro-esophageal reflux disease without esophagitis; F31.9 Bipolar disorder, unspecified; F41.9 Anxiety disorder, unspecified; F17.210 Nicotine dependence, cigarettes, uncomplicated; W18.39XA Other fall on same level, initial encounter; W22.8XXA Striking against or struck by other objects, initial encounter; Y90.8 Blood alcohol level of 240 mg/100 ml or more; Y92.009 Unspecified place in unspecified non-institutional (private) residence as the place of occurrence of the external cause
CPT/HCPCS: 70450; 70486; 72125; 73630; 80053; 80306; 81000; 83735; 84484; 85025; 93005; 93041; 99284; G0480; 36415; 80320

== ENCOUNTER 2020-06-18 07:32 | Emergency (ER) | payer OTHER ==
[~2020-06-18 07:32] MED LIST changes: +Wheelchair EXT
[2020-06-18] MEDS ORDERED: LACTATED RINGERS 1,000 ML IV ONE ×3 (08:02→10:17)
--- NOTE | 2020-06-19 10:38 | Diagnostic Imaging Report ---
Madhu Manuel date of 1970 EXAMINATION: Single view chest portable chest on 06/18 at 8:26 AM INDICATION: Lightheaded and passed out. Comparison is made with prior chest from 05/12/2020. The heart size is normal. The pulmonary vascularity is unremarkable. The lungs are clear. No infiltrate, effusion or pneumothorax is detected. Impression: No acute cardiopulmonary process is detected. Dictated by: Dictated on workstation # [id number]
[2020-06-19 16:06] LABS: AMPHETAMINE SCREEN, URINE NEGATIVE (NEGATIVE); BARBITURATE SCREEN URINE NEGATIVE (NEGATIVE); BENZODIAZEPINES SCREEN URINE NEGATIVE (NEGATIVE); CANNABINOID SCREEN, URINE NEGATIVE (NEGATIVE); COCAINE SCREEN URINE NEGATIVE (NEGATIVE); METHADONE STAT NEGATIVE (NEGATIVE); METHAMPHETAMINE SCREEN URINE S NEGATIVE (NEGATIVE); OPIATE SCREEN URINE NEGATIVE (NEGATIVE); OXYCODONE STAT NEGATIVE (NEGATIVE); PROPOXYPHENE STAT NEGATIVE (NEGATIVE); TRICYCLIC ANTIDEPRESSANTS SCRE NEGATIVE (NEGATIVE)
[2020-06-19 16:08] LABS: BILIRUBIN,URINE NEGATIVE (NEGATIVE); CLARITY,URINE CLEAR; COLOR,URINE YELLOW; GLUCOSE, URINE (UA) NEGATIVE (NEGATIVE); KETONES,URINE NEGATIVE (NEGATIVE); LEUKOCYTE ESTERASE ,URINE NEGATIVE (NEGATIVE); NITRITE,URINE NEGATIVE (NEGATIVE); PH,URINE 5.5 (5-9); PROTEIN,URINE NEGATIVE (NEGATIVE)
[2020-06-19 16:09] LABS: BACTERIA,URINE NEGATIVE /HPF; HEMOGLOBIN 13.9 G/DL (13.3-17.7); HYALINE CASTS, URINE 0-2 /LPF; MEAN CORPUSCULAR HEMOGLOBIN 34 PG (25-34); SQUAMOUS EPITHELIAL CELL,UR 0-2 /HPF; WHITE BLOOD COUNT 4.6 10^3/uL (4.3-11.0)
[2020-06-19 16:10] LABS: BASOPHILS % (AUTO) 1 % (0-10); EOSINOPHILS # (AUTO) 0.1 10^3/uL (0.0-0.3); EOSINOPHILS % (AUTO) 2 % (0-10); HEMATOCRIT 39 % (40-54); LYMPHOCYTES # (AUTO) 2.4 X 10^3 (1.0-4.0); LYMPHOCYTES % (AUTO) 53 % (12-44); MEAN CORPUSCULAR HGB CONC 36 G/DL (32-36); MEAN CORPUSCULAR VOLUME 96 FL (80-99); MEAN PLATELET VOLUME 9.6 FL (7.4-10.4); MONOCYTES # (AUTO) 0.4 X 10^3 (0.0-1.0); MONOCYTES % (AUTO) 8 % (0-12); NEUTROPHILS # (AUTO) 1.7 X 10^3 (1.8-7.8); NEUTROPHILS % (AUTO) 38 % (42-75); PLATELET COUNT 173 10^3/uL (130-400)
[2020-06-19 16:24] LABS: POTASSIUM 3.4 MMOL/L (3.6-5.0); SODIUM 130 MMOL/L (135-145)
[2020-06-19 16:25] LABS: CHLORIDE 96 MMOL/L (98-107)
[2020-06-19 16:26] LABS: ALANINE AMINOTRANSFERASE 32 U/L (0-55); ALBUMIN 3.9 GM/DL (3.2-4.5); ALKALINE PHOSPHATASE 63 U/L (40-136); BILIRUBIN,TOTAL 0.4 MG/DL (0.1-1.0); BUN/CREATININE RATIO 7; CALCIUM 8.3 MG/DL (8.5-10.1); CARBON DIOXIDE 19 MMOL/L (21-32); CREATININE SERUM 0.74 MG/DL (0.60-1.30); GFR ESTIMATED > 60; GLUCOSE 138 MG/DL (70-105); MAGNESIUM 1.7 MG/DL (1.6-2.4); TOTAL PROTEIN 6.3 GM/DL (6.4-8.2)
[2020-06-19 16:27] LABS: CHOLESTEROL 214 MG/DL (< 200); HDL CHOLESTEROL 109 MG/DL (40-60); TRIGLYCERIDES 101 MG/DL (<150); VLDL CHOLESTEROL 20 MG/DL (5-40)
[2020-06-19 16:28] LABS: PROTHROMBIN TIME PATIENT 13.2 SEC (12.2-14.7)
== END 2020-06-18 13:18 | disposition home or self-care (01) ==
LOC: ER 07:32 → EDUNIT# 07:32 → ER 13:18
DX: S00.01XA Abrasion of scalp, initial encounter (principal); I95.1 Orthostatic hypotension; F10.20 Alcohol dependence, uncomplicated; I10 Essential (primary) hypertension; W18.39XA Other fall on same level, initial encounter; W22.8XXA Striking against or struck by other objects, initial encounter
CPT/HCPCS: 71045; 80053; 80061; 80306; 81000; 83735; 83874; 84484; 85025; 85610; 85730; 93005; 96360; 96361; 99284; G0480; 36415; 80320

== ENCOUNTER 2020-07-20 16:24 | Emergency (ER) | payer SELFPAY ==
[~2020-07-20] VITALS: Ht 175 cm; Wt 68.0 kg
[~2020-07-20 16:24] MED LIST changes: -CETI10TA21 PO; +CETI10TA49 PO; +PANT20TA18 PO; -PANT20TA3 PO
[2020-07-20] MEDS ORDERED: LACTATED RINGERS 1,000 ML IV ONE (16:44)
[2020-07-20] MEDS ORDERED: LORazepam INJ 2 MG/ML (ATIVAN) VIAL IVP ONE (16:45)
[2020-07-20] MEDS ORDERED: FAMOTIDINE 20MG/2ML IV (PEPCID) IVP ONE (16:45)
[2020-07-20] MEDS ORDERED: ONDANSETRON 4 MG/2 ML (SDV) Z0FRAN IVP ONE (16:45)
[2020-07-20 17:06] LABS: BASOPHILS % (AUTO) 0 % (0-10); EOSINOPHILS % (AUTO) 0 % (0-10); HEMATOCRIT 47 % (40-54); HEMOGLOBIN 16.8 G/DL (13.3-17.7); LYMPHOCYTES # (AUTO) 1.2 X 10^3 (1.0-4.0); LYMPHOCYTES % (AUTO) 20 % (12-44); MEAN CORPUSCULAR HEMOGLOBIN 33 PG (25-34); MEAN CORPUSCULAR HGB CONC 36 G/DL (32-36); MEAN CORPUSCULAR VOLUME 92 FL (80-99); MONOCYTES # (AUTO) 0.4 X 10^3 (0.0-1.0); MONOCYTES % (AUTO) 6 % (0-12); NEUTROPHILS # (AUTO) 4.6 X 10^3 (1.8-7.8); NEUTROPHILS % (AUTO) 74 % (42-75); PLATELET COUNT 189 10^3/uL (130-400); WHITE BLOOD COUNT 6.2 10^3/uL (4.3-11.0)
[2020-07-20 17:16] LABS: ALBUMIN 4.3 GM/DL (3.2-4.5); CHLORIDE 94 MMOL/L (98-107); POTASSIUM 4.3 MMOL/L (3.6-5.0); SODIUM 133 MMOL/L (135-145)
[2020-07-20 17:17] LABS: CALCIUM 9.2 MG/DL (8.5-10.1)
[2020-07-20 17:18] LABS: GLUCOSE 74 MG/DL (70-105)
[2020-07-20 17:19] LABS: CARBON DIOXIDE 21 MMOL/L (21-32)
[2020-07-20 17:22] LABS: ALKALINE PHOSPHATASE 112 U/L (40-136); CREATININE SERUM 0.74 MG/DL (0.60-1.30); GFR ESTIMATED > 60
[2020-07-20 17:23] LABS: BUN/CREATININE RATIO 5
[2020-07-20 17:25] LABS: ALANINE AMINOTRANSFERASE 274 U/L (0-55); MAGNESIUM 2.1 MG/DL (1.6-2.4)
[2020-07-20 17:58] LABS: BILIRUBIN,URINE NEGATIVE (NEGATIVE); CLARITY,URINE CLEAR; COLOR,URINE YELLOW; GLUCOSE, URINE (UA) NEGATIVE (NEGATIVE); KETONES,URINE NEGATIVE (NEGATIVE); NITRITE,URINE NEGATIVE (NEGATIVE); PROTEIN,URINE NEGATIVE (NEGATIVE)
[2020-07-20] MEDS ORDERED: RX-LORAZEPAM (ATIVAN) 0.5 MG TAB PPK#4 PO STA (18:05)
[2020-07-20 18:06] LABS: BACTERIA,URINE NEGATIVE /HPF; SQUAMOUS EPITHELIAL CELL,UR 0-2 /HPF; WBC,URINE 0-2 /HPF
[2020-07-20 18:10] LABS: AMPHETAMINE SCREEN, URINE NEGATIVE (NEGATIVE); BARBITURATE SCREEN URINE NEGATIVE (NEGATIVE); BENZODIAZEPINES SCREEN URINE NEGATIVE (NEGATIVE); CANNABINOID SCREEN, URINE NEGATIVE (NEGATIVE); COCAINE SCREEN URINE NEGATIVE (NEGATIVE); METHADONE STAT NEGATIVE (NEGATIVE); METHAMPHETAMINE SCREEN URINE S NEGATIVE (NEGATIVE); OPIATE SCREEN URINE NEGATIVE (NEGATIVE); OXYCODONE STAT NEGATIVE (NEGATIVE); PROPOXYPHENE STAT NEGATIVE (NEGATIVE); TRICYCLIC ANTIDEPRESSANTS SCRE NEGATIVE (NEGATIVE)
--- NOTE | 2020-07-20 18:16 | ED Psychosocial ---
General Chief Complaint: Detox Stated Complaint: ALCOHOL DETOX Nursing Triage Note: PT STATES HE HAS BEEN DRINKING FOR 35 YEARS AND STARTED TRYING TO QUIT ABOUT A WEEK AGO, FROM 12 BEERS A DAY TO 6,LAST DRINK WAS ABOUT 0300 TODAY, SICK TO HIS STOMACH AND HARD TO BREATH, 94% ON ROOM AIR AT TRIAGE, HEAVY SMOKER. Source: patient Exam Limitations: no limitations History of Present Illness Date Seen by Provider: Jul 20, 2020 Time Seen by Provider: 16:35 Initial Comments this 50-year-old man presents to the emergency room requesting admission for alcohol detox. He reports tapering down on his alcohol consumption from 12 beers a day to 6 beers a day over the past week or so. He then stopped drinking around 03:00 this morning. He reports nausea, vomiting, and abdominal discomfort. He has been through detox and rehabilitation in the past. His most recent admission for detox resulted in him leaving prior to rehabilitation arrangements being made. He did successfully complete rehabilitation in 2019 with a relapse. Allergies and Home Medications Allergies Uncoded Allergies: yellow jacket (Allergy, Severe, Anaphylaxis, 04/10/19) has epi pen guinea wasp (Adverse Reaction, Severe, Anaphylaxis, 04/10/19) uses epi pen Home Medications Acetaminophen 500 Mg Tablet, 1,000 MG PO Q8H PRN for PAIN-MILD (1-4), (Reported) Amlodipine Besylate 5 Mg Tablet, 5 MG PO DAILY, (Reported) LAST FILLED 12-04-2019 #90 Atorvastatin Calcium 20 Mg Tablet, 20 MG PO HS, (Reported) LAST FILLED 12-04-2019 #90 Budesonide/Formoterol Fumarate 10.2 Gm Hfa.aer.ad, 2 PUFF IH BID PRN for SHORTNESS OF BREATH, (Reported) Cetirizine HCl 10 Mg Tablet, 10 MG PO DAILY PRN for ALLERGY SYMPTOMS, (Reported) Fluoxetine HCl 40 Mg Capsule, 40 MG PO DAILY, (Reported) LAST FILLED 02-10-2020 #60/60 DAY SUPPLY Hydroxyzine HCl 50 Mg Tablet, 50 MG PO HS, (Reported) LAST FILLED 03-27-2020 #30 Lisinopril 20 Mg Tablet, 20 MG PO DAILY, (Reported) LAST FILLED 12-04-2019 #90 Mag Hydrox/Aluminum Hyd/Simeth 355 Ml Oral.susp, 10 ML PO QID PRN for INDIGESTION, (Reported) Meloxicam 15 Mg Tablet, 15 MG PO DAILY, (Reported) Olanzapine 10 Mg Tablet, 10 MG PO HS, (Reported) Pantoprazole Sodium 40 Mg Tablet.dr, 40 MG PO DAILY, (Reported) LAST FILLED 11-07-2019 #90 Sucralfate 1 Gm Tablet, 1 GM PO QIDACHS PRN for GI UPSET, (Reported) Patient Home Medication List Home Medication List Reviewed: Yes Review of Systems Constitutional: no symptoms reported EENTM: no symptoms reported Respiratory: no symptoms reported Cardiovascular: no symptoms reported Gastrointestinal: see HPI Genitourinary: no symptoms reported Musculoskeletal: no symptoms reported Skin: no symptoms reported Psychiatric/Neurological: See HPI Past Gpgpubx-Aglvgl-Xbzrcz Hx Past Med/Social Hx: Reviewed Nursing Past Med/Soc Hx Patient Social History Alcohol Use: Regular Use Number of Drinks Today: AA Alcohol Beverage of Choice: Beer Recreational Drug Use: Yes Drug of Choice: THC AGE 18 Smoking Status: Current Everyday Smoker Type Used: Cigarettes 2nd Hand Smoke Exposure: No Recent Foreign Travel: No Contact w/Someone Who Travel: No Recent Infectious Disease Expo: No Recent Hopitalizations: No Physical Abuse: No Sexual Abuse: No Mistreated: No Fear: No Seasonal Allergies Seasonal Allergies: No Past Medical History Surgeries: Yes (LEFT INGUINAL HERNIA REPAIRL RIGHT WRIST FX/ORIF) Abdominal, Orthopedic Respiratory: Yes COPD Cardiac: Yes High Cholesterol, Hypertension Neurological: Yes (MEMORY IMPAIRMENT;ETOH WITHDRAWL SEIZURE 03/06/20;DT'S/HALLUCINATIONS ) Seizure Disorder Genitourinary: Yes Prostate Problems Gastrointestinal: Yes (LEFT INGUINAL HERNIA REPAIR;ELEVATED LFT'S 03/06/20) Abdominal Hernia, Gastroesophageal Reflux Musculoskeletal: Yes (RIGHT WRIST FX/ORIF) Fractures Endocrine: No HEENT: No Cancer: No Psychosocial: Yes (ALCOHOLISM;DT'S WITH HALLUCINATIONS 03/2019;WITHDRAWL SEIZURE 03/06/2020) Anxiety, Bipolar, Depression Integumentary: No Blood Disorders: No Family Medical History Diabetes mellitus 19 FATHER No Pertinent Family Hx Physical Exam Vital Signs - First Documented 07/20/20 16:32 Temp 36.1 Pulse 105 Resp 18 B/P (MAP) 131/100 (110) Pulse Ox 94 O2 Delivery Room Air Capillary Refill : Less Than 3 Seconds Height, Weight, BMI Height: 5'8.00" Weight: 150lbs. 4.0oz. [id number]; 22.00 BMI Method: General Appearance: WD/WN, no apparent distress HEENT: PERRL/EOMI, normal ENT inspection, other (mucous membranes dry) Neck: normal inspection Respiratory: no respiratory distress, no accessory muscle use, wheezing Cardiovascular: no edema, no murmur, tachycardia Gastrointestinal: normal bowel sounds, soft, tenderness ( Mild, generalized) Extremities: normal inspection, no pedal edema Neurologic/Psychiatric: cement block maker II-XII nml as tested, no motor/sensory deficits, alert, normal mood/affect, oriented x 3, other (mild tremor) Appearance/Memory: appropriate insight, no memory impairment Behavior/Eye Contact: cooperative, good eye contact, normal speech Thoughts/Hallucinations: no apparent hallucination Skin: normal color, warm/dry Progress/Results/Core Measures Results/Orders Lab Results Laboratory Tests Test 07/20/20 16:47 07/20/20 17:50 Range/Units White Blood Count 6.2 4.3-11.0 10^3/uL Red Blood Count 5.09 4.35-5.85 10^6/uL Hemoglobin 16.8 13.3-17.7 G/DL Hematocrit 47 40-54 % Mean Corpuscular Volume 92 80-99 FL Mean Corpuscular Hemoglobin 33 25-34 PG Mean Corpuscular Hemoglobin Concent 36 32-36 G/DL Red Cell Distribution Width 12.2 10.0-14.5 % Platelet Count 189 130-400 10^3/uL Mean Platelet Volume 10.0 7.4-10.4 FL Neutrophils (%) (Auto) 74 42-75 % Lymphocytes (%) (Auto) 20 12-44 % Monocytes (%) (Auto) 6 0-12 % Eosinophils (%) (Auto) 0 0-10 % Basophils (%) (Auto) 0 0-10 % Neutrophils # (Auto) 4.6 1.8-7.8 X 10^3 Lymphocytes # (Auto) 1.2 1.0-4.0 X 10^3 Monocytes # (Auto) 0.4 0.0-1.0 X 10^3 Eosinophils # (Auto) 0.0 0.0-0.3 10^3/uL Basophils # (Auto) 0.0 0.0-0.1 10^3/uL Sodium Level 133 L 135-145 MMOL/L Potassium Level 4.3 3.6-5.0 MMOL/L Chloride Level 94 L 98-107 MMOL/L Carbon Dioxide Level 21 21-32 MMOL/L Anion Gap 18 H 5-14 MMOL/L Blood Urea Nitrogen 4 L 7-18 MG/DL Creatinine 0.74 0.60-1.30 MG/DL Estimat Glomerular Filtration Rate > 60 BUN/Creatinine Ratio 5 Glucose Level 74 70-105 MG/DL Calcium Level 9.2 8.5-10.1 MG/DL Corrected Calcium 9.0 8.5-10.1 MG/DL Magnesium Level 2.1 1.6-2.4 MG/DL Total Bilirubin 1.0 0.1-1.0 MG/DL Aspartate Amino Transf (AST/SGOT) 334 H 5-34 U/L Alanine Aminotransferase (ALT/SGPT) 274 H 0-55 U/L Alkaline Phosphatase 112 40-136 U/L Total Protein 7.0 6.4-8.2 GM/DL Albumin 4.3 3.2-4.5 GM/DL Serum Alcohol 188 H <10 MG/DL Urine Color YELLOW Urine Clarity CLEAR Urine pH 6.5 5-9 Urine Specific [place] 1.025 H 1.016-1.022 Urine Protein NEGATIVE NEGATIVE Urine Glucose (UA) NEGATIVE NEGATIVE Urine Ketones NEGATIVE NEGATIVE Urine Nitrite NEGATIVE NEGATIVE Urine Bilirubin NEGATIVE NEGATIVE Urine Urobilinogen 4.0 < = 1.0 MG/DL Urine Leukocyte Esterase 1+ H NEGATIVE Urine RBC (Auto) NEGATIVE NEGATIVE Urine RBC NONE /HPF Urine WBC 0-2 /HPF Urine Squamous Epithelial Cells 0-2 /HPF Urine Crystals NONE /LPF Urine Bacteria NEGATIVE /HPF Urine Casts NONE /LPF Urine Mucus NEGATIVE /LPF Urine Culture Indicated NO Urine Opiates Screen NEGATIVE NEGATIVE Urine Oxycodone Screen NEGATIVE NEGATIVE Urine Methadone Screen NEGATIVE NEGATIVE Urine Propoxyphene Screen NEGATIVE NEGATIVE Urine Barbiturates Screen NEGATIVE NEGATIVE Ur Tricyclic Antidepressants Screen NEGATIVE NEGATIVE Urine Phencyclidine Screen NEGATIVE NEGATIVE Urine Amphetamines Screen NEGATIVE NEGATIVE Urine Methamphetamines Screen NEGATIVE NEGATIVE Urine Benzodiazepines Screen NEGATIVE NEGATIVE Urine Cocaine Screen NEGATIVE NEGATIVE Urine Cannabinoids Screen NEGATIVE NEGATIVE My Orders Orders - LORI CANCHOLA MD Ed Iv/Invasive Line Start (07/20/20 16:44) Lactated Ringers (Lr 1000 Ml Iv Solution (07/20/20 16:44) Famotidine Injection (Pepcid Injection) (07/20/20 16:45) Ondansetron Injection (Zofran Injectio (07/20/20 16:45) Lorazepam Injection (Ativan Injection) (07/20/20 16:45) Alcohol (07/20/20 16:44) Cbc With Automated Diff (07/20/20 16:44) Comprehensive Metabolic Panel (07/20/20 16:44) Drug Screen Stat (Urine) (07/20/20 16:44) Magnesium (07/20/20 16:44) Ua Culture If Indicated (07/20/20 16:44) Rx-Lorazepam (Rx-Ativan) (07/20/20 18:05) Rx-Ondansetron Po (Rx-Zofran Po) (07/20/20 18:18) Medications Given in ED Current Medications Medications Dose Ordered Sig/Misa Route Start Time Stop Time Status Last Admin Dose Admin Famotidine 20 mg ONCE ONCE IVP 07/20/20 16:45 07/20/20 16:46 DC 07/20/20 16:51 20 MG Lactated Ringer's 1,000 ml @ 0 mls/hr Q0M ONCE IV 07/20/20 16:44 07/20/20 16:45 DC 07/20/20 16:51 1,000 MLS/HR Lorazepam 2 mg ONCE ONCE IVP 07/20/20 16:45 07/20/20 16:46 DC 07/20/20 16:51 2 MG Ondansetron HCl 8 mg ONCE ONCE IVP 07/20/20 16:45 07/20/20 16:46 DC 07/20/20 16:51 8 MG Vital Signs/I&O 07/20/20 07/20/20 16:32 18:32 Temp 36.1 36.7 Pulse 105 108 Resp 18 18 B/P (MAP) 131/100 (110) 127/96 (110) Pulse Ox 94 94 O2 Delivery Room Air Room Air Blood Pressure Mean: 110 Progress Progress Note : Progress Note Patient's labs were reviewed. No lab abnormalities requiring admission were identified. Patient was treated with a liter of IV fluid, Pepcid, Zofran and Ativan. Blood alcohol level was found to be 188 despite his assertion that he has not had any alcohol for more than 13 hours. patient should not be in with drawn at this time with a blood alcohol level of 188. Patient does not have a rehabilitation facility bed secured. I discussed the situation with Dr. FERGUSON. Since patient is not currently experiencing significant withdrawal and no follow-up for rehabilitation placement has been pursued, inpatient admission would not be appropriate at this time. This is especially true at this time when there are numerous COVID-19 patient's flowing through the ER and admitted to the hospital. Patient was given take-home packs of Ativan and Zofran he was discharged with instructions to follow-up first thing on Tuesday morning with the [facility] substance abuse program to help make arrangements for rehabilitation placement. If detox is required before the rehabilitation placement. This can be a scheduled admit. Departure Impression Primary Impression: Alcohol dependence Qualified Codes: F10.29 - Alcohol dependence with unspecified alcohol- induced disorder Additional Impression: Nausea and vomiting Qualified Codes: R11.2 - Nausea with vomiting, unspecified Disposition: HOME, SELF-CARE Condition: Stable Departure-Patient Inst. Referrals: LISA EDWARDS MD (PCP/Family) Primary Care Physician Patient Instructions: Alcohol Abuse and Alcoholism (DC) Add. Discharge Instructions: If you choose to continue alcohol abstinence, you may use the Ativan one tablet every 2-4 hours to help with withdrawal symptoms. Contact [facility] first thing tomorrow morning to arrange alcohol detox and rehabilitation. Use Zofran dissolved under the tongue every 4 hours as needed for nausea and vomiting. Do not attempt to abruptly stop alcohol consumption without having medications such as Ativan to help manage withdraw. All discharge instructions reviewed with patient and/or family. Voiced understanding. Copy Copies To 1: LISA EDWARDS MD, JOSHUA T MD Jul 20, 2020 18:16
[2020-07-20] MEDS ORDERED: RX-ONDANSETRON 4 MG ODT (ZOFRAN) PPK #4 SL STA (18:18)
[2020-07-20 18:28] LABS: LEUKOCYTE ESTERASE ,URINE 1+ (NEGATIVE); PH,URINE 6.5 (5-9)
[2020-07-20 18:32] VITALS: BP 127/96
== END 2020-07-20 18:32 | disposition home or self-care (01) ==
LOC: EDUNIT# 16:24 → ER 16:25
DX: F10.20 Alcohol dependence, uncomplicated (principal); R11.2 Nausea with vomiting, unspecified; E78.00 Pure hypercholesterolemia, unspecified; I10 Essential (primary) hypertension; J44.9 Chronic obstructive pulmonary disease, unspecified; F41.9 Anxiety disorder, unspecified; F31.9 Bipolar disorder, unspecified; K21.9 Gastro-esophageal reflux disease without esophagitis; F17.210 Nicotine dependence, cigarettes, uncomplicated; Z83.3 Family history of diabetes mellitus
CPT/HCPCS: 80053; 80306; 81000; 83735; 85025; 99284; G0480; 36415; 80320

== ENCOUNTER 2020-08-11 10:53 | Emergency (ER) | payer SELFPAY ==
[~2020-08-11] VITALS: Ht 175 cm; Wt 68.0 kg
[2020-08-11] MEDS ORDERED: LACTATED RINGERS 1,000 ML IV SCH (11:15)
[2020-08-11] MEDS ORDERED: ONDANSETRON 4 MG/2 ML (SDV) Z0FRAN IVP ONE (11:15)
--- NOTE | 2020-08-11 11:22 | ED General ---
General Stated Complaint: COUGH;VOMITING;CHILLS Source of Information: Patient Exam Limitations: No Limitations History of Present Illness Date Seen by Provider: Aug 11, 2020 Time Seen by Provider: 11:21 Initial Comments To ER with vomiting and periumbilical abdominal pain for 3-4 days. Intermittent chills. He has a chronic cough, chronic shortness of breath related to smoking. He does drink about a sixpack of alcohol daily. Timing/Duration: 1-2 Days Severity: Moderate Allergies and Home Medications Allergies Uncoded Allergies: yellow jacket (Allergy, Severe, Anaphylaxis, 04/10/19) has epi pen guinea wasp (Adverse Reaction, Severe, Anaphylaxis, 04/10/19) uses epi pen Home Medications Acetaminophen 500 Mg Tablet, 1,000 MG PO Q8H PRN for PAIN-MILD (1-4), (Reported) Amlodipine Besylate 5 Mg Tablet, 5 MG PO DAILY, (Reported) LAST FILLED 12-04-2019 #90 Atorvastatin Calcium 20 Mg Tablet, 20 MG PO HS, (Reported) LAST FILLED 12-04-2019 #90 Budesonide/Formoterol Fumarate 10.2 Gm Hfa.aer.ad, 2 PUFF IH BID PRN for SHORTNESS OF BREATH, (Reported) Cetirizine HCl 10 Mg Tablet, 10 MG PO DAILY PRN for ALLERGY SYMPTOMS, (Reported) Fluoxetine HCl 40 Mg Capsule, 40 MG PO DAILY, (Reported) LAST FILLED 02-10-2020 #60/60 DAY SUPPLY Hydroxyzine HCl 50 Mg Tablet, 50 MG PO HS, (Reported) LAST FILLED 03-27-2020 #30 Lisinopril 20 Mg Tablet, 20 MG PO DAILY, (Reported) LAST FILLED 12-04-2019 #90 Mag Hydrox/Aluminum Hyd/Simeth 355 Ml Oral.susp, 10 ML PO QID PRN for INDIGESTION, (Reported) Meloxicam 15 Mg Tablet, 15 MG PO DAILY, (Reported) Olanzapine 10 Mg Tablet, 10 MG PO HS, (Reported) Pantoprazole Sodium 40 Mg Tablet.dr, 40 MG PO DAILY, (Reported) LAST FILLED 11-07-2019 #90 Sucralfate 1 Gm Tablet, 1 GM PO QIDACHS PRN for GI UPSET, (Reported) Patient Home Medication List Home Medication List Reviewed: Yes Review of Systems Review of Systems Constitutional: see HPI EENTM: see HPI Respiratory: no symptoms reported Cardiovascular: no symptoms reported Gastrointestinal: abdominal pain Genitourinary: no symptoms reported Musculoskeletal: no symptoms reported Skin: no symptoms reported Psychiatric/Neurological: No Symptoms Reported Hematologic/Lymphatic: No Symptoms Reported Immunological/Allergic: no symptoms reported Past Aljezuz-Lafpbd-Xehgpw Hx Patient Social History Alcohol Beverage of Choice: Beer Drug of Choice: THC AGE 18 Type Used: Cigarettes 2nd Hand Smoke Exposure: No Recent Hopitalizations: No Seasonal Allergies Seasonal Allergies: No Past Medical History Surgeries: Yes (LEFT INGUINAL HERNIA REPAIRL RIGHT WRIST FX/ORIF) Abdominal, Orthopedic Respiratory: Yes COPD Cardiac: Yes High Cholesterol, Hypertension Neurological: Yes (MEMORY IMPAIRMENT;ETOH WITHDRAWL SEIZURE 03/06/20;DT'S/HALLUCINATIONS ) Seizure Disorder Genitourinary: Yes Prostate Problems Gastrointestinal: Yes (LEFT INGUINAL HERNIA REPAIR;ELEVATED LFT'S 03/06/20) Abdominal Hernia, Gastroesophageal Reflux Musculoskeletal: Yes (RIGHT WRIST FX/ORIF) Fractures Endocrine: No HEENT: No Cancer: No Psychosocial: Yes (ALCOHOLISM;DT'S WITH HALLUCINATIONS 03/2019;WITHDRAWL SEIZURE 03/06/2020) Anxiety, Bipolar, Depression Integumentary: No Blood Disorders: No Family Medical History Diabetes mellitus 19 FATHER No Pertinent Family Hx Physical Exam Vital Signs Vital Signs - First Documented 08/11/20 11:31 Temp 36.2 Pulse 79 Resp 18 B/P (MAP) 129/100 (110) Pulse Ox 96 O2 Delivery Room Air Capillary Refill : Height, Weight, BMI Height: 5'8.00" Weight: 150lbs. 4.0oz. 68.000416gu; 22.00 BMI Method: General Appearance: No Apparent Distress, WD/WN, Chronically ill, Thin Eyes: Bilateral Eye Normal Inspection, Bilateral Eye PERRL, Bilateral Eye EOMI Respiratory: Normal Breath Sounds, No Accessory Muscle Use, No Respiratory Distress Cardiovascular: Regular Rate, Rhythm, Normal Peripheral Pulses Gastrointestinal: Normal Bowel Sounds, Soft, Tenderness Extremity: Normal Capillary Refill, Normal Inspection Neurologic/Psychiatric: Alert, Oriented x3 Skin: Normal Color, Warm/Dry Progress/Results/Core Measures Suspected Sepsis SIRS Temperature: Pulse: Respiratory Rate: Laboratory Tests 08/11/20 11:15: White Blood Count 5.4 Blood Pressure / Mean: Laboratory Tests 08/11/20 11:15: Creatinine 0.72, Platelet Count 193, Total Bilirubin 0.9 Results/Orders Lab Results Laboratory Tests Test 08/11/20 11:15 08/11/20 13:31 Range/Units White Blood Count 5.4 4.3-11.0 10^3/uL Red Blood Count 4.94 4.30-5.52 10^6/uL Hemoglobin 16.5 13.3-17.7 g/dL Hematocrit 47 40-54 % Mean Corpuscular Volume 95 80-99 fL Mean Corpuscular Hemoglobin 33 25-34 pg Mean Corpuscular Hemoglobin Concent 35 32-36 g/dL Red Cell Distribution Width 11.9 10.0-14.5 % Platelet Count 193 130-400 10^3/uL Mean Platelet Volume 10.0 9.0-12.2 fL Immature Granulocyte % (Auto) 0 % Neutrophils (%) (Auto) 53 42-75 % Lymphocytes (%) (Auto) 38 12-44 % Monocytes (%) (Auto) 7 0-12 % Eosinophils (%) (Auto) 1 0-10 % Basophils (%) (Auto) 1 0-10 % Neutrophils # (Auto) 2.9 1.8-7.8 10^3/uL Lymphocytes # (Auto) 2.0 1.0-4.0 10^3/uL Monocytes # (Auto) 0.4 0.0-1.0 10^3/uL Eosinophils # (Auto) 0.1 0.0-0.3 10^3/uL Basophils # (Auto) 0.0 0.0-0.1 10^3/uL Immature Granulocyte # (Auto) 0.0 0.0-0.1 10^3/uL Sodium Level 134 L 135-145 MMOL/L Potassium Level 4.0 3.6-5.0 MMOL/L Chloride Level 93 L 98-107 MMOL/L Carbon Dioxide Level 25 21-32 MMOL/L Anion Gap 16 H 5-14 MMOL/L Blood Urea Nitrogen 5 L 7-18 MG/DL Creatinine 0.72 0.60-1.30 MG/DL Estimat Glomerular Filtration Rate > 60 BUN/Creatinine Ratio 7 Glucose Level 88 70-105 MG/DL Calcium Level 9.6 8.5-10.1 MG/DL Corrected Calcium 9.3 8.5-10.1 MG/DL Total Bilirubin 0.9 0.1-1.0 MG/DL Aspartate Amino Transf (AST/SGOT) 181 H 5-34 U/L Alanine Aminotransferase (ALT/SGPT) 119 H 0-55 U/L Alkaline Phosphatase 91 40-136 U/L C-Reactive Protein High Sensitivity 0.10 0.00-0.50 MG/DL Total Protein 7.5 6.4-8.2 GM/DL Albumin 4.4 3.2-4.5 GM/DL Lipase 16 8-78 U/L Serum Alcohol 95 H <10 MG/DL Coronavirus 2019 (JIM) Negative Negative Urine Color YELLOW Urine Clarity CLEAR Urine pH 5.5 5-9 Urine Specific [place] 1.015 L 1.016-1.022 Urine Protein NEGATIVE NEGATIVE Urine Glucose (UA) NEGATIVE NEGATIVE Urine Ketones TRACE H NEGATIVE Urine Nitrite NEGATIVE NEGATIVE Urine Bilirubin NEGATIVE NEGATIVE Urine Urobilinogen 0.2 < = 1.0 MG/DL Urine Leukocyte Esterase NEGATIVE NEGATIVE Urine RBC (Auto) NEGATIVE NEGATIVE Urine RBC NONE /HPF Urine WBC 0-2 /HPF Urine Squamous Epithelial Cells 0-2 /HPF Urine Crystals NONE /LPF Urine Bacteria NEGATIVE /HPF Urine Casts NONE /LPF Urine Mucus MODERATE H /LPF Urine Culture Indicated NO My Orders Orders - FEDERICO MITCHELL APRN Cbc With Automated Diff (08/11/20 11:13) Comprehensive Metabolic Panel (08/11/20 11:13) Ed Iv/Invasive Line Start (08/11/20 11:13) Ua Culture If Indicated (08/11/20 11:13) Chest 1 View, Ap/Pa Only (08/11/20 11:13) Hs C Reactive Protein (08/11/20 11:13) Lactated Ringers (Lr 1000 Ml Iv Solution (08/11/20 11:15) Ondansetron Injection (Zofran Injectio (08/11/20 11:15) Fentanyl Injection (Sublimaze Injection (08/11/20 11:30) Alcohol (08/11/20 11:19) Covid 19 Inhouse Test (08/11/20 11:19) Coronavirus Sars-Cov-2 So 2018 (08/11/20 11:19) Ct Abdomen/Pelvis W (08/11/20 11:24) Iohexol Injection (Omnipaque 350 Mg/Ml 1 (08/11/20 12:00) Received Contrast (Hold Metformin- Contr (08/11/20 12:00) Ns (Ivpb) (Sodium Chloride 0.9% Ivpb Bag (08/11/20 12:00) Lipase (08/11/20 11:57) Coronavirus Sars-Cov-2 So 2019 (08/11/20 12:09) Us Gallbladder [id number] (08/11/20 13:28) Medications Given in ED Current Medications Medications Dose Ordered Sig/Misa Route Start Time Stop Time Status Last Admin Dose Admin Fentanyl Citrate 50 mcg ONCE ONCE IVP 08/11/20 11:30 08/11/20 11:31 DC 08/11/20 11:27 50 MCG Iohexol 100 ml ONCE ONCE IV 08/11/20 12:00 08/11/20 12:01 DC 08/11/20 12:36 85 ML Ondansetron HCl 8 mg ONCE ONCE IVP 08/11/20 11:15 08/11/20 11:16 DC 08/11/20 11:27 8 MG Sodium Chloride 100 ml ONCE ONCE IV 08/11/20 12:00 08/11/20 12:01 DC 08/11/20 12:36 80 ML Vital Signs/I&O 08/11/20 11:31 Temp 36.2 Pulse 79 Resp 18 B/P (MAP) 129/100 (110) Pulse Ox 96 O2 Delivery Room Air Capillary Refill : Departure Impression Primary Impression: Abdominal pain Additional Impression: Alcohol dependence Disposition: HOME, SELF-CARE Condition: Stable Departure-Patient Inst. Decision time for Depature: 14:14 Referrals: LISA EDWARDS MD (PCP/Family) Primary Care Physician Patient Instructions: NO INSTRUCTIONS GIVEN Add. Discharge Instructions: 1. Take the acid shipwright helper as directed. Return to ER for any concerns Scripts Pantoprazole Sodium (Pantoprazole Sodium) 40 Mg Tablet. 40 MG PO DAILY, #14 TAB Prov: FEDERICO MITCHELL HAT CLEANER 08/11/20 FEDERICO MITCHELL HAT CLEANER Aug 11, 2020 11:22
[2020-08-11] MEDS ORDERED: fentaNYL INJECTION 100 MCG/2 ML AMP IVP ONE (11:30)
[2020-08-11 11:33] LABS: BASOPHILS % (AUTO) 1 % (0-10); EOSINOPHILS # (AUTO) 0.1 10^3/uL (0.0-0.3); EOSINOPHILS % (AUTO) 1 % (0-10); HEMATOCRIT 47 % (40-54); HEMOGLOBIN 16.5 g/dL (13.3-17.7); LYMPHOCYTES % (AUTO) 38 % (12-44); MEAN CORPUSCULAR HEMOGLOBIN 33 pg (25-34); MEAN CORPUSCULAR HGB CONC 35 g/dL (32-36); MEAN CORPUSCULAR VOLUME 95 fL (80-99); MONOCYTES # (AUTO) 0.4 10^3/uL (0.0-1.0); MONOCYTES % (AUTO) 7 % (0-12); NEUTROPHILS # (AUTO) 2.9 10^3/uL (1.8-7.8); NEUTROPHILS % (AUTO) 53 % (42-75); PLATELET COUNT 193 10^3/uL (130-400); WHITE BLOOD COUNT 5.4 10^3/uL (4.3-11.0)
[2020-08-11 11:45] LABS: ALBUMIN 4.4 GM/DL (3.2-4.5); CHLORIDE 93 MMOL/L (98-107); SODIUM 134 MMOL/L (135-145)
[2020-08-11 11:46] LABS: CALCIUM 9.6 MG/DL (8.5-10.1)
[2020-08-11 11:47] LABS: GLUCOSE 88 MG/DL (70-105)
[2020-08-11 11:48] LABS: CARBON DIOXIDE 25 MMOL/L (21-32); TOTAL PROTEIN 7.5 GM/DL (6.4-8.2)
[2020-08-11 11:49] LABS: BILIRUBIN,TOTAL 0.9 MG/DL (0.1-1.0)
[2020-08-11 11:51] LABS: ALKALINE PHOSPHATASE 91 U/L (40-136); CREATININE SERUM 0.72 MG/DL (0.60-1.30); GFR ESTIMATED > 60
[2020-08-11 11:52] LABS: BUN/CREATININE RATIO 7
[2020-08-11 11:54] LABS: ALANINE AMINOTRANSFERASE 119 U/L (0-55)
[2020-08-11] MEDS ORDERED: NS 100 ML (IVPB) BAG IV ONE (12:00)
[2020-08-11] MEDS ORDERED: HOLD METFORMIN - RECEIVED CONTRAST 20 ML VIAL IV SCH (12:00)
[2020-08-11] MEDS ORDERED: IOHEXOL 350 MG/ML 100 ML (OMNIPAQUE 350) VIAL IV ONE (12:00)
--- NOTE | 2020-08-11 12:25 | Diagnostic Imaging Report ---
INDICATION: Shortness of breath and fever. TECHNIQUE/COMPARISON: A frontal chest was obtained at 11:32 AM and compared to 06/18/2020. FINDINGS: The heart and mediastinal silhouette are normal in appearance. The lungs are clear. There is no pneumothorax or pleural fluid. IMPRESSION: Negative chest. Dictated by: Dictated on workstation # [id number]
--- NOTE | 2020-08-11 12:51 | Diagnostic Imaging Report ---
EXAMINATION: CT Abdomen and Pelvis with intravenous contrast. TECHNIQUE: Multiple contiguous axial images were obtained through the abdomen and pelvis after the uneventful administration of intravenous contrast. All CT scans use one or more of the following dose optimizing techniques: automated exposure control, MA and/or KvP adjustment based on a patient size and exam type, or iterative reconstruction. HISTORY: abdominal pain COMPARISON: CT abdomen/pelvis 11/04/2019. FINDINGS: Lung bases: The lung bases are clear. Solid organs: Diffuse hypoattenuation of the liver compatible with hepatic steatosis. Stable mild gallbladder wall enhancement. There is no biliary ductal dilation. Pancreas is normal. Spleen is normal. Adrenal glands are normal. The kidneys are normal without hydronephrosis. Bowel: The stomach and small bowel are normal without obstruction. The colon and appendix are normal. Peritoneum: There is no intraperitoneal free fluid or free air. No suspicious lymphadenopathy. Vasculature: Calcification of the aorta without aneurysm. Musculoskeletal: Degenerative changes of the spine without suspicious osseous lesion or compression fracture. Pelvis: The prostate gland is normal. The urinary bladder is normal. IMPRESSION: 1. No acute abnormality in the abdomen or pelvis. 2. Hepatic steatosis. 3. Mild gallbladder wall enhancement, unchanged from prior exam. This could be better characterized with a dedicated gallbladder ultrasound. Dictated by: Dictated on workstation # [id number]
--- NOTE | 2020-08-11 13:02 | NUR ---
pt reports no new needs at that time.
[2020-08-11 13:40] LABS: BILIRUBIN,URINE NEGATIVE (NEGATIVE); CLARITY,URINE CLEAR; COLOR,URINE YELLOW; GLUCOSE, URINE (UA) NEGATIVE (NEGATIVE); KETONES,URINE TRACE (NEGATIVE); LEUKOCYTE ESTERASE ,URINE NEGATIVE (NEGATIVE); NITRITE,URINE NEGATIVE (NEGATIVE); PH,URINE 5.5 (5-9); PROTEIN,URINE NEGATIVE (NEGATIVE)
[2020-08-11 13:48] LABS: BACTERIA,URINE NEGATIVE /HPF; SQUAMOUS EPITHELIAL CELL,UR 0-2 /HPF; WBC,URINE 0-2 /HPF
[2020-08-11] MEDS ORDERED: LIDOCAINE 2% VISCOUS 15 ML UDC PO ONE (14:15)
[2020-08-11] MEDS ORDERED: ANTACID SUSP 30 ML UDC (MYLANTA) PO ONE (14:15)
[2020-08-11] MEDS ORDERED: PANT40TA52 PO (14:15)
[2020-08-11 14:40] VITALS: BP 139/107
--- NOTE | 2020-08-12 07:29 | Diagnostic Imaging Report ---
EXAMINATION: US Abdomen limited. TECHNIQUE: Multiple real-time grayscale images were obtained over the right upper quadrant in various projections. REASON FOR EXAM: Pain. Cough. Vomiting. COMPARISON: CT abdomen and pelvis performed the same date. FINDINGS: The liver demonstrates increased echogenicity throughout. A simple appearing cyst is seen in the left hepatic lobe measuring 0.9 cm. No suspicious hepatic lesions are seen. No intrahepatic biliary dilatation is present. The common bile duct is not dilated and measures 4 mm. The main portal vein is hepatopedal. No ascites is seen in the upper abdomen. There is no evidence of cholelithiasis, gallbladder wall thickening or pericholecystic fluid. Sonographic Solorzano's sign is negative. The visualized portion of the head of the pancreas are within normal limits. The body and tail of the pancreas are not well visualized due to overlying bowel gas. The aorta and IVC are not well seen due to overlying bowel gas. The right kidney measures approximately 10.1 cm in length and has a normal appearance. IMPRESSION: 1. No cholelithiasis or acute cholecystitis. 2. Hepatic steatosis. Small simple appearing cyst is seen in the left lobe of the liver. No further follow-up is recommended regarding this lesion. Dictated by: Dictated on workstation # [id number]
== END 2020-08-11 14:40 | disposition home or self-care (01) ==
LOC: EDUNIT# 10:53 → ER 10:53
DX: R10.33 Periumbilical pain (principal); E78.00 Pure hypercholesterolemia, unspecified; I10 Essential (primary) hypertension; K21.9 Gastro-esophageal reflux disease without esophagitis; F41.9 Anxiety disorder, unspecified; F31.9 Bipolar disorder, unspecified; F10.20 Alcohol dependence, uncomplicated; Z20.828 Contact with and (suspected) exposure to other viral communicable diseases; Z83.3 Family history of diabetes mellitus
CPT/HCPCS: 71045; 74177; 76705; 80053; 81000; 83690; 85025; 86141; 99284; G0480; U0002; 36415; 80320; 87635

== ENCOUNTER 2023-01-24 22:20 | Emergency (ER) | payer OTHER ==
[~2023-01-24] VITALS: Ht 175 cm; Wt 67.5 kg
[~2023-01-24 22:20] MED LIST changes: +AMLO-250 PO; -AMLO5TAB9 PO; -LISI-552 PO; -LISI10TA2 PO; +LISI10TA25 PO; +LISI20TA26 PO; -OLAN10TA19 PO; +OLAN10TA71 PO; -OLAN15TA19 PO; +OLAN15TA35 PO; +PANT40TA52 PO
[2023-01-24] MEDS ORDERED: RX-MUPIROCIN (BACTROBAN) 2% OINT 22 GM TUBE TOP STA (22:32)
--- NOTE | 2023-01-24 22:41 | ED Upper Extremity ---
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 OCCURRED JUST PRIOR TO ARRIVAL STATES THE IT PULLED THE SKIN OFF THE TOP OF HIS HAND NO PARSTHESIAS OR MOTOR DEFICITS. PT IS ABLE TO FREELY MOVE ALL FINGERS. NO OTHER INJURIES FROM THE INCIDENT PT IS RIGHT HANDED PT HAS HAD PRIOR LEFT WRIST FRACTURE A CHILD, BUT NO SURGERY. LAST TETANUS IS UNKNOWN. PCP: VANDANA-[facility] Allergies and Home Medications Allergies Uncoded Allergies: yellow jacket (Allergy, Severe, Anaphylaxis, 04/10/19) has epi pen guinea wasp (Adverse Reaction, Severe, Anaphylaxis, 04/10/19) uses epi pen Patient Home Medication List Home Medication List Reviewed: Yes Acetaminophen (Tylenol Extra Strength) 500 Mg Tablet, 1,000 MG PO Q8H PRN for PAIN-MILD (1-4), (Reported) Entered as Reported by: JUAN A LAGOS on 03/07/20 1015 Amlodipine Besylate (Amlodipine Besylate) 5 Mg Tablet, 5 MG PO DAILY, (Reported) Entered as Reported by: JUAN A LAGOS on 03/07/20 1014 Atorvastatin Calcium (Lipitor) 20 Mg Tablet, 20 MG PO HS, (Reported) Entered as Reported by: GALINA JEFF on 04/10/19 1425 Budesonide/Formoterol Fumarate (Symbicort 160-4.5 Mcg Inhaler) 10.2 Gm Hfa.aer.ad, 2 PUFF IH BID PRN for SHORTNESS OF BREATH, (Reported) Entered as Reported by: JUAN A LAGOS on 03/07/20 1014 Cetirizine HCl (Zyrtec) 10 Mg Tablet, 10 MG PO DAILY PRN for ALLERGY SYMPTOMS, (Reported) Entered as Reported by: JUAN A LAGOS on 03/07/20 1015 Fluoxetine HCl (Prozac) 40 Mg Capsule, 40 MG PO DAILY, (Reported) Entered as Reported by: GALINA JEFF on 04/10/19 1425 Hydroxyzine HCl (Hydroxyzine HCl) 50 Mg Tablet, 50 MG PO HS, (Reported) Entered as Reported by: JUAN A LAGOS on 05/13/20 1401 Lisinopril (Lisinopril) 20 Mg Tablet, 20 MG PO DAILY, (Reported) Entered as Reported by: JUAN A LAGOS on 03/07/20 1014 Mag Hydrox/Aluminum Hyd/Simeth (Mylanta Maximum Strength Liq) 355 Ml Oral.susp, 10 ML PO QID PRN for INDIGESTION, (Reported) Entered as Reported by: JUAN A LAGOS on 05/13/20 1401 Meloxicam (Meloxicam) 15 Mg Tablet, 15 MG PO DAILY, (Reported) Entered as Reported by: JUAN A LAGOS on 03/07/20 1014 Olanzapine (Olanzapine) 10 Mg Tablet, 10 MG PO HS, (Reported) Entered as Reported by: JUAN A LAGOS on 03/07/20 1014 Pantoprazole Sodium (Protonix) 40 Mg Tablet.dr, 40 MG PO DAILY, (Reported) Entered as Reported by: JUAN A LAGOS on 03/07/20 1014 Pantoprazole Sodium (Pantoprazole Sodium) 40 Mg Tablet.dr, 40 MG PO DAILY Prescribed by: FEDERICO MITCHELL on 08/11/20 1415 Sucralfate (Carafate) 1 Gm Tablet, 1 GM PO QIDACHS PRN for GI UPSET, (Reported) Entered as Reported by: JUAN A LAGOS on 03/07/20 1014 [Wheelchair] , EXT NEEDED, (DME) Prescribed by: LORI MONREAL on 05/23/20 0529 Review of Systems Constitutional: no symptoms reported Musculoskeletal: see HPI Skin: see HPI Psychiatric/Neurological: No Symptoms Reported Past Qedouwa-Qdieku-Rwkfwa Hx Patient Social History Tobacco Use?: Yes Substance use?: No Alcohol Use?: Yes Alcohol Frequency: Daily Pt feels they are or have been: No Immunizations Up To Date First/Initial COVID19 Vaccinat: X2 Seasonal Allergies Seasonal Allergies: No Past Medical History Surgery/Hospitalization HX: WRIST FX, L ING. HERNIA, COPD, GERD, HTN, SEIZURES, HDL, ETOH ABUSE Surgeries: Yes (LEFT INGUINAL HERNIA REPAIRL RIGHT WRIST FX/ORIF) Abdominal, Orthopedic Respiratory: Yes COPD Cardiac: Yes High Cholesterol, Hypertension Neurological: Yes (MEMORY IMPAIRMENT;ETOH WITHDRAWL SEIZURE 03/06/20;DT'S/HALLUCINATIONS ) Seizure Disorder Genitourinary: Yes Prostate Problems Gastrointestinal: Yes (LEFT INGUINAL HERNIA REPAIR;ELEVATED LFT'S 03/06/20) Abdominal Hernia, Gastroesophageal Reflux Musculoskeletal: Yes (RIGHT WRIST FX/ORIF) Fractures Endocrine: No HEENT: No Cancer: No Psychosocial: Yes (ALCOHOLISM;DT'S WITH HALLUCINATIONS 03/2019;WITHDRAWL SEIZURE 03/06/2020) Anxiety, Bipolar, Depression Integumentary: No Blood Disorders: No Family Medical History Diabetes mellitus 19 FATHER No Pertinent Family Hx Physical Exam Vital Signs Vital Signs - First Documented 01/24/23 22:26 Temp 36.2 Pulse 83 Resp 16 B/P (MAP) 138/99 (112) Pulse Ox 97 O2 Delivery Room Air Capillary Refill : Height, Weight, BMI Height: 5'8.00" Weight: 150lbs. 4.0oz. 68.158484vh; 22.00 BMI Method: Progress/Results/Core Measures Results/Orders My Orders Orders - NYDIA LEE DO Hand, Left, 3 Views (01/24/23 22:32) Wound Dressing-Ed (01/24/23 22:32) Dipht,Pertuss(Acell),Tet Adult (Boostrix (01/24/23 22:45) Rx-Mupirocin 2% Oint (Rx-Bactroban) (01/24/23 22:32) Medications Given in ED Current Medications Medications Dose Ordered Sig/Misa Route Start Time Stop Time Status Last Admin Dose Admin Diphtheria/ Tetanus/Acell Pertussis 0.5 ml ONCE ONCE IM 01/24/23 22:45 01/24/23 22:46 DC 01/24/23 22:43 0.5 ML Vital Signs/I&O 01/24/23 22:26 Temp 36.2 Pulse 83 Resp 16 B/P (MAP) 138/99 (112) Pulse Ox 97 O2 Delivery Room Air Departure Impression Primary Impression: Contusion of left hand Additional Impressions: ABRASIONS OF LEFT HAND Rpfjhymjol-beqperkxm-scdjvyq (DPT) vaccination administered at current visit Disposition: 01 HOME, SELF-CARE Condition: Stable Departure-Patient Inst. Decision time for Depature: 23:10 Referrals: [facility] (PCP/Family) Primary Care Physician Patient Instructions: Contusion (DC), Diphtheria and Tetanus Toxoids, and Acellular Pertussis Vaccine, Skin Abrasions (DC) Add. Discharge Instructions: CLEAN WOUNDS TWICE A DAY WITH ANTIBACTERIAL SOAP AND WATER, APPLY ANTIBIOTIC OINTMENT AND FRESH DRESSING TWICE A DAY WEAR SPLINT AT ALL TIMES FOLLOW UP WITH [facility] / WORK[facility]'S [facility] TOMORROW FOR FURTHER CARE All discharge instructions reviewed with patient and/or family. Voiced understanding. Scripts Naproxen (Naproxen) 500 Mg Tablet. 500 MG PO BID, #20 TAB Prov: NYDIA LEE DO 01/24/23 Cephalexin (Cephalexin) 500 Mg Tablet 500 MG PO QID, #20 TAB 0 Refills Prov: NYDIA LEE DO 01/24/23 NYDIA LEE DO Jan 24, 2023 22:41
[2023-01-24] MEDS ORDERED: TETANUS,DIPTH,PERTUSS P/F (BOOSTRIX) 0.5 ML VIAL IM ONE (22:45)
[2023-01-24] MEDS ORDERED: RX-NAPROXEN (NAPROSYN) 250 MG TAB PPK#4 PO STA (23:11)
[2023-01-24] MEDS ORDERED: RX-CEPHALEXIN (KEFLEX) 250 MG CAP PPK#4 PO STA (23:11)
[2023-01-24] MEDS ORDERED: NAPR500T8 PO (23:15)
[2023-01-24] MEDS ORDERED: CEPH500T PO (23:15)
[2023-01-24] MEDS ORDERED: RX-CEPHALEXIN (KEFLEX) 250 MG CAP PPK#4 PO ONE (23:18)
[2023-01-24] MEDS ORDERED: RX-NAPROXEN (NAPROSYN) 250 MG TAB PPK#4 PO ONE (23:18)
[2023-01-24 23:25] VITALS: BP 132/87
--- NOTE | 2023-01-25 08:30 | Diagnostic Imaging Report ---
HISTORY: Left hand pain after injury TECHNIQUE: 3 views left hand COMPARISON: None FINDINGS: No acute fracture is seen in the left hand. There is widening of the scapholunate ligament with proximal migration of the capitate. There are severe degenerative change at the radiocarpal joint. There is a small calcification at the radial side of the 3rd finger proximal interphalangeal joint which may be from prior injury. There is a subtle linear lucency at the 3rd finger distal phalangeal tuft. There is moderate soft tissue swelling at the dorsal aspect of the left hand. IMPRESSION: 1. Suspected nondisplaced fracture of the left 3rd finger distal phalangeal tuft. 2. Calcification adjacent to the 3rd finger PIP joint. This is thought to be due to remote injury, but please correlate with the site of pain. 3. 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 Findings regarding suspected 3rd finger injuries were not included in the provider's preliminary findings, otherwise agree. These additional findings were communicated to the Emergency Room via the additional findings tracking sheet. Dictated by: Dictated on workstation # [id number]
== END 2023-01-24 23:25 | disposition home or self-care (01) ==
LOC: EDUNIT# 22:20 → ER 22:23
DX: S60.222A Contusion of left hand, initial encounter (principal); Z23 Encounter for immunization; Z87.81 Personal history of (healed) traumatic fracture; W23.0XXA Caught, crushed, jammed, or pinched between moving objects, initial encounter; Y92.59 Other trade areas as the place of occurrence of the external cause; Y99.0 Civilian activity done for income or pay
CPT/HCPCS: 73130; 90715

== ENCOUNTER 2023-06-10 23:12 | Emergency (ER) | payer OTHER ==
[~2023-06-10] VITALS: Ht 172.7 cm; Wt 68.2 kg
[~2023-06-10 23:12] MED LIST changes: +CEPH500T PO; +NAPR500T8 PO
[2023-06-10 23:20] VITALS: BP 178/100
--- NOTE | 2023-06-10 23:46 | ED Upper Extremity ---
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 HE HAS BEEN USING ICE ON IT. HE TOOK 600 MG IBUPROFEN AT 2130 WHEN HE GOT HOME FROM WORK, WITHOUT RELIEF. HE STATES IT HAS BEEN LIKE THIS IN THE PAST, BUT USUALLY IS BETTER AFTER A COUPLE OF DAYS PT IS RIGHT HANDED. PCP: DR. WHITE Allergies and Home Medications Allergies Uncoded Allergies: yellow jacket (Allergy, Severe, Anaphylaxis, 04/10/19) has epi pen guinea wasp (Adverse Reaction, Severe, Anaphylaxis, 04/10/19) uses epi pen Patient Home Medication List Home Medication List Reviewed: Yes Acetaminophen (Tylenol Extra Strength) 500 Mg Tablet, 1,000 MG PO Q8H PRN for PAIN-MILD (1-4), (Reported) Entered as Reported by: JUAN A LAGOS on 03/07/20 1015 Amlodipine Besylate (Amlodipine Besylate) 5 Mg Tablet, 5 MG PO DAILY, (Reported) Entered as Reported by: JUAN A LAGOS on 03/07/20 1014 Atorvastatin Calcium (Lipitor) 20 Mg Tablet, 20 MG PO HS, (Reported) Entered as Reported by: GALINA JEFF on 04/10/19 1425 Budesonide/Formoterol Fumarate (Symbicort 160-4.5 Mcg Inhaler) 10.2 Gm Hfa.aer.ad, 2 PUFF IH BID PRN for SHORTNESS OF BREATH, (Reported) Entered as Reported by: JUAN A LAGOS on 03/07/20 1014 Cephalexin (Cephalexin) 500 Mg Tablet, 500 MG PO QID Prescribed by: NYDIA LEE on 01/24/23 231 Cetirizine HCl (Zyrtec) 10 Mg Tablet, 10 MG PO DAILY PRN for ALLERGY SYMPTOMS, (Reported) Entered as Reported by: JUAN A LAGOS on 03/07/20 101 Fluoxetine HCl (Prozac) 40 Mg Capsule, 40 MG PO DAILY, (Reported) Entered as Reported by: GALINA JEFF on 04/10/19 1425 Hydrocodone/Acetaminophen (Hydrocodone-Acetamin 5-325 mg) 5 Mg-325 Mg Tablet, 1 EACH PO Q4-6 HOURS PRN for PAIN Prescribed by: NYDIA LEE on 06/11/23 001 Hydroxyzine HCl (Hydroxyzine HCl) 50 Mg Tablet, 50 MG PO HS, (Reported) Entered as Reported by: JUAN A LAGOS on 05/13/20 140 Lisinopril (Lisinopril) 20 Mg Tablet, 20 MG PO DAILY, (Reported) Entered as Reported by: JUAN A LAGOS on 03/07/20 101 Mag Hydrox/Aluminum Hyd/Simeth (Mylanta Maximum Strength Liq) 355 Ml Oral.susp, 10 ML PO QID PRN for INDIGESTION, (Reported) Entered as Reported by: JUAN A LAGOS on 05/13/20 140 Meloxicam (Meloxicam) 15 Mg Tablet, 15 MG PO DAILY, (Reported) Entered as Reported by: JUAN A LAGOS on 03/07/20 101 Naproxen (Naproxen) 500 Mg Tablet.dr, 500 MG PO BID Prescribed by: NYDIA LEE on 01/24/232314 Olanzapine (Olanzapine) 10 Mg Tablet, 10 MG PO HS, (Reported) Entered as Reported by: JUAN A LAGOS on 03/07/20 101 Pantoprazole Sodium (Protonix) 40 Mg Tablet.dr, 40 MG PO DAILY, (Reported) Entered as Reported by: JUAN A LAGOS on 03/07/20 101 Pantoprazole Sodium (Pantoprazole Sodium) 40 Mg Tablet.dr, 40 MG PO DAILY Prescribed by: FEDERICO MITCHELL on 08/11/20 1415 Prednisone (Prednisone) 20 Mg Tab, 40 MG PO DAILY Prescribed by: NYDIA LEE on 06/11/23 001 Sucralfate (Carafate) 1 Gm Tablet, 1 GM PO QIDACHS PRN for GI UPSET, (Reported) Entered as Reported by: JUAN A LAGOS on 03/07/20 1014 [Wheelchair] , EXT NEEDED, (DME) Prescribed by: LORI MONREAL on 05/23/20 0529 Review of Systems Constitutional: no symptoms reported Musculoskeletal: see HPI Skin: no symptoms reported Psychiatric/Neurological: No Symptoms Reported Past Comdnum-Tarlqq-Brnjad Hx Patient Social History Tobacco Use?: Yes Tobacco type used: Cigarettes Smoking Status: Current Everyday Smoker Substance use?: No Alcohol Use?: Yes Alcohol Frequency: Daily Pt feels they are or have been: No Immunizations Up To Date First/Initial COVID19 Vaccinat: X2 Seasonal Allergies Seasonal Allergies: No Past Medical History Surgery/Hospitalization HX: WRIST FX, L ING. HERNIA, COPD, GERD, HTN, SEIZURES, HLD, ETOH ABUSE, BPH, ANX, DEP, BIPOLAR Surgeries: Yes (LEFT INGUINAL HERNIA REPAIRL RIGHT WRIST FX/ORIF) Abdominal, Orthopedic Respiratory: Yes COPD Cardiac: Yes High Cholesterol, Hypertension Neurological: Yes (MEMORY IMPAIRMENT;ETOH WITHDRAWL SEIZURE 03/06/20;DT'S/HALLUCINATIONS ) Seizure Disorder Genitourinary: Yes Prostate Problems Gastrointestinal: Yes (LEFT INGUINAL HERNIA REPAIR;ELEVATED LFT'S 03/06/20) Abdominal Hernia, Gastroesophageal Reflux Musculoskeletal: Yes (RIGHT WRIST FX/ORIF) Fractures Endocrine: No HEENT: No Cancer: No Psychosocial: Yes (ALCOHOLISM;DT'S WITH HALLUCINATIONS 03/2019;WITHDRAWL SEIZURE 03/06/2020) Anxiety, Bipolar, Depression Integumentary: No Blood Disorders: No Family Medical History Diabetes mellitus 19 FATHER No Pertinent Family Hx Physical Exam Vital Signs Vital Signs - First Documented 06/10/23 23:20 Temp 36.0 Pulse 73 Resp 18 B/P (MAP) 178/100 (126) Pulse Ox 99 O2 Delivery Room Air Capillary Refill : Less Than 3 Seconds Height, Weight, BMI Height: 5'8.00" Weight: 150lbs. 4.0oz. 68.097361ks; 22.00 BMI Method: General Appearance: WD/WN, no apparent distress Elbow/Forearm: normal inspection Wrist: Yes bone tenderness, Yes limited ROM (ROM LIMITED BY PAIN. PT IS ABLE TO FREELY MOVE FINGERS, BUT HAS PAIN IN WRIST WITH MAKING A FIST. ), Yes pain, Yes soft tissue tenderness, Yes swelling (NO ERYTHEMA OR WARMTH TO THE AREA. ) Hand: normal inspection Neurologic/Tendon: normal sensation, normal motor functions, normal tendon functions Neurologic/Psychiatric: no motor/sensory deficits, alert, normal mood/affect, oriented x 3 Skin: normal color, warm/dry Procedures/Interventions Splinting and Joint Reduction : Splints: [place] Wrist Progress/Results/Core Measures Results/Orders My Orders Orders - ROSANYDIA K DO Wrist, Right, 3 Views Or More (06/10/23 23:26) Wrist-[place] (06/11/23 00:02) Prednisone Tablet (Deltasone Tablet) (06/11/23 00:15) Rx-Hydrocodone/Apap 5-325 Mg (Rx-Vicodin (06/11/23 00:15) Vital Signs/I&O 06/10/23 23:20 Temp 36.0 Pulse 73 Resp 18 B/P (MAP) 178/100 (126) Pulse Ox 99 O2 Delivery Room Air Blood Pressure Mean: 126 Progress Progress Note : Progress Note DISCUSSED ANTICIPATED COURSE, SYMPTOMATIC TREATMENT, MEDICATIONS, NEED FOR FOLLOW UP AND RETURN PRECAUTIONS. REVIEWED PRIOR RECORDS INCLUDING ER VISITS, ADMITS, TESTS/PROCEDURES. Diagnostic Imaging Comments XRAYS RIGHT WRIST--NO ACUTE BONY ABNORMALITY. SOFT TISSUE SWELLING PRESENT. SOME MILD ARTHRITIC CHANGES. PENDING RADIOLOGIST REVIEW. Reviewed: Reviewed by Me Departure Impression Primary Impression: Pain and swelling of right wrist Disposition: 01 HOME, SELF-CARE Condition: Stable Departure-Patient Inst. Decision time for Depature: 00:10 Referrals: CLEM REDDY MD (PCP) Primary Care Physician [facility] (Family) Primary Care Physician Patient Instructions: Swollen Joints Add. Discharge Instructions: ICE TO AREA AT 20 MINUTE INTERVALS WEAR SPLINT AT ALL TIMES ELEVATE HAND MUCH POSSIBLE FOLLOW UP WITH DR. WHITE ON TUESDAY FOR FURTHER CARE, RETURN TO ER IF WORSE All discharge instructions reviewed with patient and/or family. Voiced understanding. Scripts Hydrocodone/Acetaminophen (Hydrocodone-Acetamin 5-325 mg) 5 Mg-325 Mg Tablet 1 EACH PO Q4-6 HOURS PRN for PAIN, #20 TAB Prov: NYDIA LEE K DO 06/11/23 Prednisone (Prednisone) 20 Mg Tab 40 MG PO DAILY, #6 TAB 0 Refills Prov: ROSAANYABill Bah DO 06/11/23 NYDIA LEE DO Jun 10, 2023 23:46
[2023-06-11] MEDS ORDERED: ACHD5005 PO (00:13)
[2023-06-11] MEDS ORDERED: PRD20T PO (00:13)
[2023-06-11] MEDS ORDERED: predniSONE 20 MG TAB PO ONE (00:15)
--- NOTE | 2023-06-11 08:28 | Diagnostic Imaging Report ---
INDICATION: Right wrist pain. COMPARISON: None. DISCUSSION: Three views of the right wrist were obtained. Moderately advanced degenerative disease noted throughout. Abnormal alignment of the scapholunate space is likely due to a chronic injury and may represent early changes of SLAC wrist. No acute fracture or dislocation. Mild soft tissue swelling. IMPRESSION: 1. 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 No acute fracture. Dictated by: Dictated on workstation # [id number]
== END 2023-06-11 00:22 | disposition home or self-care (01) ==
LOC: EDUNIT# 23:12 → ER 23:17
DX: M25.531 Pain in right wrist (principal); M25.431 Effusion, right wrist; F17.210 Nicotine dependence, cigarettes, uncomplicated
CPT/HCPCS: 73110